=== PATIENT | female | born 1960 | race Caucasian/White ===

== ENCOUNTER 2017-04-20 09:40 | Emergency (ER) | payer SELFPAY ==
--- NOTE | 2017-04-20 10:44 | EDM.PDOC ---
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 She smashed her rt middle finger. It i tender at the tip. 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: Musculoskeletal History: Reports: Fracture - Infectious Disease History Infectious Disease History: Reports: Chicken Pox, Measles, Mumps - Past Surgical History GI Surgical History: Reports: Appendectomy, Hernia Repair/Other Female Surgical History: Reports: Hysterectomy, Salpingo-Oophorectomy Social & Family History - Tobacco Use Smoking Status *Q: Current Every Day Smoker Years of Tobacco use: 40 Packs/Tins Daily: 0.5 - Caffeine Use Caffeine Use: Reports: Coffee - Recreational Drug Use Recreational Drug Use: No Review of Systems - Review of Systems Review Of Systems: See Below Constitutional: Reports: No Symptoms Eyes: Reports: No Symptoms Ears: Reports: No Symptoms Nose: Reports: No Symptoms Mouth/Throat: Reports: No Symptoms Respiratory: Reports: No Symptoms Cardiovascular: Reports: No Symptoms GI/Abdominal: Reports: No Symptoms Genitourinary: Reports: No Symptoms Musculoskeletal: Reports: Other (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 ) ED EXAM, GENERAL - Physical Exam Exam: See Below Free Text/Narrative:: Pt arrived with pain in her rt middle finger. There is some swelling. Exam Limited By: No Limitations General Appearance: Alert Extremities: Other (Pt has swelling at the tip of the rt middle finger. A xray was obtained which showed a possible fracture at the tip with no displacement. A over the finger splint was applied) Course - Vital Signs Last Recorded V/S: Last Vital Signs Temp 35.3 C 04/20/17 10:01 Pulse 88 04/20/17 10:01 Resp 18 04/20/17 10:01 BP 195/113 H 04/20/17 10:43 Pulse Ox 96 04/20/17 10:01 - Orders/Labs/Meds Orders: Active Orders 24 hr Category Date Time Status Fingers Third Digit Rt F7 [CR] Stat Exams 04/20/17 09:58 Taken Departure - Departure Time of Disposition: 10:41 Disposition: Home, Self-Care 01 Condition: Fair Clinical Impression: Fracture, finger, distal phalanx - Discharge Information Referrals: PCP,None [Primary Care Provider] - Forms: ED Department Discharge Care Plan Goals: use splint for the next 10 days to protect it, cool pack, elevate motrin 600mg qid for pain as needed. - My Orders Last 24 Hours: My Active Orders 04/20/17 09:58 Fingers Third Digit Rt F7 [CR] Stat - Assessment/Plan Last 24 Hours: My Active Orders 04/20/17 09:58 Fingers Third Digit Rt F7 [CR] Stat
--- NOTE | 2017-04-21 09:18 | CR ---
Fingers Third Digit Rt F7 HISTORY: smashed tip o the finger FINDINGS: No acute fracture or dislocation is identified. Bony architecture and joint spaces are preserved. S oft tissues are unremarkable. IMPRESSION: No fracture or other acute right third finger abnormality is identified.
== END 2017-04-20 10:55 | disposition home or self-care (01) ==
LOC: JP.ED 09:40
DX: S62.632A Displaced fracture of distal phalanx of right middle finger, initial encounter for closed fracture (principal); F17.210 Nicotine dependence, cigarettes, uncomplicated; W23.0XXA Caught, crushed, jammed, or pinched between moving objects, initial encounter
CPT/HCPCS: 73140-26-F7; 73140-F7; 99283; 99284

== ENCOUNTER 2018-12-04 11:41 | Emergency (ER) | payer OTHER ==
[2018-12-04] MEDS ORDERED: Aspirin 81 MG Tab.Chew PO ONE (11:52)
[2018-12-04] MEDS ORDERED: Sodium Chloride 0.9% 10 ML Syringe FLUSH PRN (11:52)
[2018-12-04] MEDS ORDERED: Ketorolac 30 MG/ML SDV IVPUSH ONE (11:53)
[2018-12-04] MEDS ORDERED: Nitroglycerin 0.4 MG Tab.SL SL ONE (11:53)
--- NOTE | 2018-12-04 11:57 | EDM.PDOC ---
ED HPI GENERAL MEDICAL PROBLEM - General Stated Complaint: CHEST PAIN, SOB, HEADACHE Time Seen by Provider: 12/04/18 11:45 Source of Information: Reports: Patient History Limitations: Reports: No Limitations - History of Present Illness INITIAL COMMENTS - FREE TEXT/NARRATIVE: Mia is a 58 year old female who presents to the ED today with c/o substernal chest pain since 2100 last night, throbbing in nature, unrelieved with Ibuprofen or rest, nothing really makes pain worse. Patient also endorses sob and headache that started shortly after the chest pain. Patient denies any cardiac hx but does have a family hx, she does smoke 1 ppd, no hx of GERD. Patient has no hx of DVT or PE not on blood thinners. Patient denies any URI symptoms, fever/chills. Patient denies any LE edema or weight gain. 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 ED EXAM, GENERAL - Physical Exam Exam: See Below Exam Limited By: No Limitations General Appearance: Alert, WD/WN, No Apparent Distress Eye Exam: Bilateral Eye: EOMI Nose: Normal Inspection Throat/Mouth: Normal Oropharynx Head: Atraumatic Neck: Normal Inspection, Non-Tender Respiratory/Chest: No Respiratory Distress, Lungs Clear Cardiovascular: Regular Rate, Rhythm, No Murmur GI/Abdominal: Normal Bowel Sounds, Soft, Non-Tender Extremities: Normal Inspection Neurological: Alert, Oriented, CN II-XII Intact Psychiatric: Normal Affect, Normal Mood Skin Exam: Warm, Dry, Intact, Normal Color, No Rash Lymphatic: No Adenopathy EKG INTERPRETATION EKG Date: 12/04/18 Time: 11:50 Rhythm: NSR [place]: Normal P-Wave: Present QRS: Normal ST-T: Normal QT: Normal VT/PQ Interval: Short VT interval, 104 Comparison: NA - No Prior EKG Course - Vital Signs Last Recorded V/S: Last Vital Signs Temp 35.8 C 12/04/18 11:55 Pulse 79 12/04/18 12:51 Resp 16 12/04/18 12:51 BP 179/99 H 12/04/18 12:55 Pulse Ox 91 L 12/04/18 12:51 Mia is a 58 year old female, otherwise healthy, although doesn't see a provider, presents today with substernal chest pain since last night. Please refer to HPI and focused exam. Patient arrives here with headache as well, hypertensive with systolic blood pressure > 200. Patient given a dose of NTG here with 324 mg of aspirin and 30 mg of IV Toradol. Nurse reports that patient 's headache and chest pain had really subsided prior to medication administration. Patient reports headache and chest pain are still resolved. Patient's blood pressure did improve after the NTG. Blood work today including a D Dimer and Troponin are relatively reassuring. Patient has a negative troponin, negative d dimer. CBC reassuring with a normal white count. CMP with a sodium of 139 and potassium of 3.5. CRP negative. CXR consistent with emphysema. Patient updated on findings and test results. Smoking cessation encouraged. Patient needs to establish a PCP with her family hx of heart disease, recommend follow up echocardiogram and stress test in the near future. I am going to start patient on Lisinopril/HCTZ and have her establish PCP for follow up in the next 1-2 weeks. Patient also encouraged to start taking an 81 mg daily baby aspirin. Reasons to return to the ED discussed with patient, she is agreeable to plan of care and discharged in stable condition. - Orders/Labs/Meds Orders: Active Orders 24 hr Category Date Time Status EKG Documentation Completion [RC] ASDIRECTED Care 12/04/18 11:47 Active Peripheral IV Care [RC] . DIRECTED Care 12/04/18 11:52 Active Sodium Chloride 0.9% [Normal Saline] 1,000 ml Med 12/04/18 12:00 Active IV ASDIRECTED Sodium Chloride 0.9% [Saline Flush] Med 12/04/18 11:52 Active 10 ml FLUSH ASDIRECTED PRN Peripheral IV Insertion Adult [OM.PC] Routine Oth 12/04/18 11:52 Ordered EKG 12 Lead [EK] Stat Ther 12/04/18 11:47 Ordered Medication Orders Sodium Chloride (Normal Saline) 1,000 mls @ 125 mls/hr IV ASDIRECTED GAVIN Last Admin: 12/04/18 12:52 Dose: 125 mls/hr Sodium Chloride (Saline Flush) 10 ml FLUSH ASDIRECTED PRN PRN Reason: Keep Vein Open Labs: Laboratory Tests 12/04/18 12/04/18 12/04/18 Range/Units 12:06 12:06 12:06 WBC 7.0 (4.5-11.0) K/uL RBC 5.35 (3.30-5.50) M/uL Hgb 16.2 H (12.0-15.0) g/dL Hct 48.3 H (36.0-48.0) % MCV 90 (80-98) fL MCH 30 (27-31) pg MCHC 34 (32-36) % Plt Count 232 (150-400) K/uL Neut % (Auto) 59 (36-66) % Lymph % (Auto) 31 (24-44) % [place] % (Auto) 9 H (2-6) % Eos % (Auto) 1 L (2-4) % Baso % (Auto) 0 (0-1) % D-Dimer, Quantitative 171 (0.0-400.0) ng/mL Sodium 139 L (140-148) mmol/L Potassium 3.5 L (3.6-5.2) mmol/L Chloride 101 (100-108) mmol/L Carbon Dioxide 30 (21-32) mmol/L Anion Gap 11.5 (5.0-14.0) mmol/L BUN 16 (7-18) mg/dL Creatinine 0.8 (0.6-1.0) mg/dL Est Cr Clr Drug Dosing 54.39 mL/min Estimated GFR (MDRD) > 60 (>60) Glucose 115 H (74-106) mg/dL Calcium 9.2 (8.5-10.1) mg/dL Total Bilirubin 0.5 (0.2-1.0) mg/dL AST 22 (15-37) U/L ALT 24 (12-78) U/L Alkaline Phosphatase 67 (46-116) U/L Troponin I (0.000-0.056) ng/mL C-Reactive Protein (0.0-0.3) mg/dL Total Protein 7.7 (6.4-8.2) g/dL Albumin 4.0 (3.4-5.0) g/dL Globulin 3.7 H (2.3-3.5) g/dL Albumin/Globulin Ratio 1.1 L (1.2-2.2) 12/04/18 Range/Units 12:06 WBC (4.5-11.0) K/uL RBC (3.30-5.50) M/uL Hgb (12.0-15.0) g/dL Hct (36.0-48.0) % MCV (80-98) fL MCH (27-31) pg MCHC (32-36) % Plt Count (150-400) K/uL Neut % (Auto) (36-66) % Lymph % (Auto) (24-44) % [place] % (Auto) (2-6) % Eos % (Auto) (2-4) % Baso % (Auto) (0-1) % D-Dimer, Quantitative (0.0-400.0) ng/mL Sodium (140-148) mmol/L Potassium (3.6-5.2) mmol/L Chloride (100-108) mmol/L Carbon Dioxide (21-32) mmol/L Anion Gap (5.0-14.0) mmol/L BUN (7-18) mg/dL Creatinine (0.6-1.0) mg/dL Est Cr Clr Drug Dosing mL/min Estimated GFR (MDRD) (>60) Glucose (74-106) mg/dL Calcium (8.5-10.1) mg/dL Total Bilirubin (0.2-1.0) mg/dL AST (15-37) U/L ALT (12-78) U/L Alkaline Phosphatase (46-116) U/L Troponin I < 0.017 (0.000-0.056) ng/mL C-Reactive Protein 0.03 (0.0-0.3) mg/dL Total Protein (6.4-8.2) g/dL Albumin (3.4-5.0) g/dL Globulin (2.3-3.5) g/dL Albumin/Globulin Ratio (1.2-2.2) Meds: Medications Generic Name Dose Route Start Last Admin Trade Name Freq PRN Reason Stop Dose Admin Sodium Chloride 1,000 mls @ 125 mls/hr 12/04/18 12:00 12/04/18 12:52 Normal Saline IV 125 mls/hr ASDIRECTED GAVIN Administration Sodium Chloride 10 ml 12/04/18 11:52 Saline Flush FLUSH ASDIRECTED PRN Keep Vein Open Discontinued Medications Generic Name Dose Route Start Last Admin Trade Name Freq PRN Reason Stop Dose Admin Aspirin 324 mg 12/04/18 11:52 12/04/18 12:51 Aspirin PO 12/04/18 11:53 324 mg ONETIME ONE Administration Ketorolac Tromethamine 30 mg 12/04/18 11:53 12/04/18 12:53 Toradol IVPUSH 12/04/18 11:54 30 mg ONETIME ONE Administration Nitroglycerin 0.4 mg 12/04/18 11:53 12/04/18 12:55 Nitrostat SL 12/04/18 11:54 0.4 mg ONETIME ONE Administration Departure - Departure Time of Disposition: 14:00 Disposition: Home, Self-Care 01 Condition: Good Clinical Impression: Atypical chest pain, Hypertension, uncontrolled Emphysema of lung Qualifiers: Emphysema type: unspecified Qualified Code(s): J43.9 - Emphysema, unspecified Instructions: How to Take Your Blood Pressure, Chest Wall Pain, [id number], Hypertension, [id number], Hydrochlorothiazide, HCTZ; Lisinopril tablets Referrals: PCP,None [Primary Care Provider] - Additional Instructions: Start taking the Zestoretic daily. Check your blood pressure once daily and record for clinic appointment. Start taking a baby aspirin daily. Consider stopping smoking. If you have any other concerns or new/worsening symptoms please return here. Discuss a cardiac echocardiogram as well as a stress test with the clinic provider you see. - My Orders Last 24 Hours: My Active Orders 12/04/18 11:47 EKG Documentation Completion [RC] ASDIRECTED EKG 12 Lead [EK] Stat 12/04/18 11:52 Peripheral IV Care [RC] . DIRECTED Sodium Chloride 0.9% [Saline Flush] 10 ml FLUSH ASDIRECTED PRN Peripheral IV Insertion Adult [OM.PC] Routine 12/04/18 12:00 Sodium Chloride 0.9% [Normal Saline] 1,000 ml IV ASDIRECTED - Assessment/Plan Last 24 Hours: My Active Orders 12/04/18 11:47 EKG Documentation Completion [RC] ASDIRECTED EKG 12 Lead [EK] Stat 12/04/18 11:52 Peripheral IV Care [RC] . DIRECTED Sodium Chloride 0.9% [Saline Flush] 10 ml FLUSH ASDIRECTED PRN Peripheral IV Insertion Adult [OM.PC] Routine 12/04/18 12:00 Sodium Chloride 0.9% [Normal Saline] 1,000 ml IV ASDIRECTED
[2018-12-04] MEDS ORDERED: Sodium Chloride 0.9% 1,000 ML IV SCH (12:00)
--- NOTE | 2018-12-04 13:18 | CRLCR ---
INDICATION: Chest pain TECHNIQUE: Chest radiograph 2 views COMPARISON: 10/02/2006 FINDINGS: Mediastinum: The mediastinum is normal in appearance. The heart silhouette is normal in size and morphology. Lung: Bilateral pulmonary hyperinflation and lucency noted, suggestive of severe, increased pulmonary emphysema. No sign of pleural effusion seen. No pneumothorax is identified. Bone and Soft tissue: Unremarkable for age. IMPRESSION: 1. Bilateral pulmonary hyperinflation and lucency noted, suggestive of severe, increased pulmonary emphysema. Dictated by Ady Naidu MD @ 12/04/2018 1:15:56 PM Dictated by: Ady Naidu MD @ 12/04/2018 13:16:02 (Electronically Signed)
== END 2018-12-04 13:53 | disposition home or self-care (01) ==
LOC: JP.ED 11:41
DX: J43.9 Emphysema, unspecified (principal); R07.89 Other chest pain; I10 Essential (primary) hypertension; Z90.49 Acquired absence of other specified parts of digestive tract; Z90.722 Acquired absence of ovaries, bilateral; Z90.710 Acquired absence of both cervix and uterus
CPT/HCPCS: 36415; 71046; 80053; 84484; 85025; 85379; 86140; 93005; 96361; 96374; 99285; A9270; J1885; J7030

== ENCOUNTER 2021-01-12 17:37 | Inpatient (IN) | payer OTHER ==
[2021-01-12] MEDS ORDERED: Sodium Chloride 0.9% 10 ML Syringe FLUSH PRN ×2 (18:15→18:20)
--- NOTE | 2021-01-12 18:25 | EDM.PDOC ---
ED HPI GENERAL MEDICAL PROBLEM - General Chief Complaint: Respiratory Problem Stated Complaint: FATIGUE, COUGH, SOB Time Seen by Provider: 01/12/21 18:15 Source of Information: Reports: Patient, Old Records History Limitations: Reports: No Limitations - History of Present Illness INITIAL COMMENTS - FREE TEXT/NARRATIVE: 60-year-old female presenting to the ED for evaluation of increasing shortness of breath, fever and chills, headache, nausea without vomiting, body aches, loss of appetite, and generalized weakness. The patient symptoms started on Friday. She has not received vaccinations for either Covid or the Pneumovax. She smokes 1 to 2 packs/day. She apparently underwent a CT of the chest 1 year ago and was found to have suspicious masses in her lungs but failed to follow-up on any of this. She denies being around anyone that has been ill. She was at the [facility] walk-in clinic to be seen but left there because when they checked her vitals they found her to be quite hypoxic and her grandkids brought her immediately to the ER. Lower Back Pain Score (Numeric/FACES): 3 - Related Data Allergies Allergy/AdvReac Type Severity Reaction Status Date / Time No Known Allergies Allergy Verified 01/12/21 18:16 Home Meds: Home Meds Albuterol Sulfate [Albuterol Sulfate Hfa] 1 puff INH Q6HR PRN 01/12/21 [History] Lisinopril/Hydrochlorothiazide [Lisinopril-Hctz 10-12.5 mg Tab] 1 tab PO DAILY 01/12/21 [History] Aspirin [Halfprin] 81 mg PO DAILY 01/13/21 [History] Cholecalciferol (Vitamin D3) [Vitamin D3] 2,000 unit PO DAILY 01/13/21 [History] Past Medical History Cardiovascular History: Reports: Hypertension [employer] DIRECTOR History: Reports: Musculoskeletal History: Reports: Fracture - Infectious Disease History Infectious Disease History: Reports: Chicken Pox, Measles, Mumps - Past Surgical History GI Surgical History: Reports: Appendectomy, Hernia Repair/Other Female Surgical History: Reports: Hysterectomy, Salpingo-Oophorectomy Social & Family History - Caffeine Use Caffeine Use: Reports: Coffee ED ROS GENERAL - Review of Systems Review Of Systems: See Below Constitutional: Reports: Fever, Chills, Malaise, Weakness (Generalized), Fatigue, Decreased Appetite HEENT: Reports: Rhinitis Respiratory: Reports: Shortness of Breath, Wheezing, Cough, Sputum Cardiovascular: Reports: Chest Pain (Chest pressure), Dyspnea on Exertion Endocrine: Reports: Fatigue GI/Abdominal: Reports: Decreased Appetite, Nausea. Denies: Vomiting : Reports: No Symptoms Musculoskeletal: Reports: Muscle Pain Skin: Reports: No Symptoms Neurological: Reports: Headache Psychiatric: Reports: No Symptoms Hematologic/Lymphatic: Reports: No Symptoms Immunologic: Reports: No Symptoms ED EXAM, GENERAL - Physical Exam Exam: See Below Exam Limited By: No Limitations General Appearance: Alert, Anxious, Mild Distress Eye Exam: Bilateral Eye: EOMI, PERRL Nose: Nasal Swelling. No: Nasal Drainage, Clear Rhinorrhea Throat/Mouth: Other (Very dry mucous membranes. Pharyngeal erythema. Red, beefy tongue.) Head: Atraumatic, Normocephalic Neck: Normal Inspection, Supple. No: Lymphadenopathy (R), Lymphadenopathy (L) Respiratory/Chest: Decreased Breath Sounds (Bibasilar diminished breath sounds), Rhonchi (Scattered rhonchi), Wheezing (Scant inspiratory wheezes. Prolonged expiratory phase.), Prolonged Expiration Cardiovascular: Normal Peripheral Pulses, Regular Rate, Rhythm, No Murmur Peripheral Pulses: 2+: Radial (L), Radial (R) GI/Abdominal: Normal Bowel Sounds, Soft, Non-Tender. No: Guarding, Rebound Extremities: Normal Inspection, No Pedal Edema Neurological: Alert, Oriented, Normal Cognition, No Motor/Sensory Deficits Psychiatric: Normal Affect, Normal Mood Skin Exam: Warm, Dry, Intact, Normal Color Course - Vital Signs Last Recorded V/S: Last Vital Signs Temp 36.1 C 01/13/21 15:25 Pulse 79 01/13/21 15:25 Resp 22 H 01/13/21 15:25 BP 99/71 01/13/21 15:25 Pulse Ox 93 L 01/13/21 15:30 - Orders/Labs/Meds Orders: Active Orders 24 hr Category Date Time Status RT Aerosol Therapy [RC] ASDIRECTED Care 01/13/21 10:01 Active RT Post Treatment Assessment [RC] Click to Edit Care 01/13/21 10:01 Active Albuterol [Ventolin HFA] Med 01/13/21 10:00 Active See Dose Instructions INH Q4H PRN Sodium Chloride 0.9% [Saline Flush] Med 01/12/21 18:15 Active 10 ml FLUSH ASDIRECTED PRN Saline Lock Insert [OM.PC] Routine Oth 01/12/21 18:15 Ordered Saline Lock Insert [OM.PC] Routine Oth 01/12/21 18:20 Ordered Medication Orders Acetaminophen (Acetaminophen 325 Mg Tab) 650 mg PO Q4H PRN PRN Reason: Pain (Mild 1-3)/fever Last Admin: 01/13/21 16:07 Dose: 650 mg Documented by: ESTELA Albuterol (Albuterol 8 Gm Inhaler) 0 gm INH Q4H PRN PRN Reason: Wheezing Last Admin: 01/13/21 10:12 Dose: 2 puff Documented by: SERENA Aspirin (Aspirin 81 Mg Tab.Ec) 81 mg PO DAILY [facility] Benzonatate (Benzonatate 100 Mg Cap) 100 mg PO TID PRN PRN Reason: Cough Cholecalciferol (Cholecalciferol (Vitamin D3) 25 Mcg Tab) 50 mcg PO DAILY [facility] Dexamethasone (Dexamethasone 4 Mg/Ml Sdv) 6 mg IVPUSH Q24H [facility] Enoxaparin Sodium (Enoxaparin 40 Mg/0.4 Ml Syringe) 40 mg SUBCUT Q24H [facility] Last Admin: 01/13/21 15:51 Dose: 40 mg Documented by: ESTELA Guaifenesin/Dextromethorphan (Guaifenesin/Dextromethorphan 100-10 Mg/5 Ml Soln 10 Ml Cup) 10 ml PO Q4H PRN PRN Reason: Cough Hydrochlorothiazide (Hydrochlorothiazide 12.5 Mg Cap) 12.5 mg PO DAILY [facility] Remdesivir 100 mg/ Sodium (Chloride) 100 mls @ 100 mls/hr IV Q24H [facility] Stop: 01/17/21 14:59 Ceftriaxone Sodium 1 gm/ (Sodium Chloride) 50 mls @ 100 mls/hr IV Q24H [facility] Last Admin: 01/13/21 17:24 Dose: 100 mls/hr Documented by: ESTELA Lactobacillus Rhamnosus (Lactobacillus Rhamnosus Gg (Probiotic) Cap) 1 cap PO BID [facility] Lisinopril (Lisinopril 10 Mg Tab) 10 mg PO DAILY [facility] Lorazepam (Lorazepam 2 Mg/Ml Sdv) 0.5 mg IVPUSH Q4H PRN PRN Reason: Nausea/Vomiting Magnesium Hydroxide (Magnesium Hydroxide 400 Mg/5 Ml Susp 30 Ml Cup) 30 ml PO Q12H PRN PRN Reason: Constipation Melatonin (Melatonin 3 Mg Tab) 9 mg PO BEDTIME PRN PRN Reason: Sleep Nicotine (Nicotine 14 Mg/24 Hr Patch) 14 mg TRDERM DAILY [facility] Ondansetron HCl (Ondansetron 4 Mg/2 Ml Sdv) 4 mg IV Q6H PRN PRN Reason: Nausea/Vomiting Ondansetron HCl (Ondansetron 4 Mg Tab.Dis) 4 mg PO Q6H PRN PRN Reason: Nausea able to take PO Oxycodone HCl (Oxycodone 5 Mg Tab) 5 mg PO Q4H PRN PRN Reason: Pain (moderate 4-6) Pantoprazole Sodium (Pantoprazole 40 Mg Tab.Cr) 40 mg PO ACBREAKFAST [facility] Senna/Docusate Sodium (Docusate Sodium/Sennosides 50-8.6 Mg Tab) 1 tab PO BID PRN PRN Reason: Constipation Sodium Chloride (Sodium Chloride 0.9% 10 Ml Syringe) 10 ml FLUSH ASDIRECTED PRN PRN Reason: Keep Vein Open Last Admin: 01/13/21 09:17 Dose: 10 ml Documented by: EBER Labs: Laboratory Tests 01/12/21 01/12/21 01/12/21 Range/Units 18:24 18:32 18:32 WBC 9.3 (4.5-11.0) K/uL RBC 5.87 H (3.30-5.50) M/uL Hgb 17.3 H (12.0-15.0) g/dL Hct 49.3 H (36.0-48.0) % MCV 84 (80-98) fL MCH 30 (27-31) pg MCHC 35 (32-36) % Plt Count 248 (150-400) K/uL Neut % (Auto) 84.5 H (36-66) % Lymph % (Auto) 7.3 L (24-44) % [place] % (Auto) 7.2 H (2-6) % Eos % (Auto) 0.0 L (2-4) % Baso % (Auto) 1.0 (0-1) % D-Dimer, Quantitative 2590.35 H (0.0-500.0) ng/mL Sodium (140-148) mmol/L Potassium (3.6-5.2) mmol/L Chloride (100-108) mmol/L Carbon Dioxide (21-32) mmol/L Anion Gap (5.0-14.0) mmol/L BUN (7-18) mg/dL Creatinine (0.6-1.0) mg/dL Est Cr Clr Drug Dosing mL/min Estimated GFR (MDRD) (>60) Glucose (74-106) mg/dL Lactic Acid (0.4-2.0) mmol/L Calcium (8.5-10.1) mg/dL Total Bilirubin (0.2-1.0) mg/dL AST (15-37) U/L ALT (12-78) U/L Alkaline Phosphatase (46-116) U/L Lactate Dehydrogenase (82-234) U/L C-Reactive Protein (0.0-0.3) mg/dL Total Protein (6.4-8.2) g/dL Albumin (3.4-5.0) g/dL Globulin (2.3-3.5) g/dL Albumin/Globulin Ratio (1.2-2.2) Urine Color (YELLOW) Urine Appearance (CLEAR) Urine pH (5.0-8.0) Ur Specific [place] (1.008-1.030) Urine Protein (NEGATIVE) mg/dL Urine Glucose (UA) (NEGATIVE) mg/dL Urine Ketones (NEGATIVE) mg/dL Urine Occult Blood (NEGATIVE) Urine Nitrite (NEGATIVE) Urine Bilirubin (NEGATIVE) Urine Urobilinogen (0.2-1.0) EU/dL Ur Leukocyte Esterase (NEGATIVE) Urine RBC (0-5) Urine WBC (0-5) Ur Epithelial Cells Amorphous Sediment Urine Bacteria Urine Mucus Influenza Type A RNA Negative (NEGATIVE) RSV RNA (INAAT) Negative (NEGATIVE) Influenza Type B RNA Negative (NEGATIVE) SARS-CoV-2 RNA (IGNACIO) Positive H (NEGATIVE) 01/12/21 01/12/21 01/12/21 Range/Units 18:32 18:32 18:32 WBC (4.5-11.0) K/uL RBC (3.30-5.50) M/uL Hgb (12.0-15.0) g/dL Hct (36.0-48.0) % MCV (80-98) fL MCH (27-31) pg MCHC (32-36) % Plt Count (150-400) K/uL Neut % (Auto) (36-66) % Lymph % (Auto) (24-44) % [place] % (Auto) (2-6) % Eos % (Auto) (2-4) % Baso % (Auto) (0-1) % D-Dimer, Quantitative (0.0-500.0) ng/mL Sodium 131 L (140-148) mmol/L Potassium 3.8 (3.6-5.2) mmol/L Chloride 90 L (100-108) mmol/L Carbon Dioxide 26 (21-32) mmol/L Anion Gap 18.8 H (5.0-14.0) mmol/L BUN 94 H* D (7-18) mg/dL Creatinine 1.9 H D (0.6-1.0) mg/dL Est Cr Clr Drug Dosing 20.93 mL/min Estimated GFR (MDRD) 27 L (>60) Glucose 126 H (74-106) mg/dL Lactic Acid 1.7 (0.4-2.0) mmol/L Calcium 9.7 (8.5-10.1) mg/dL Total Bilirubin 0.6 (0.2-1.0) mg/dL AST 69 H D (15-37) U/L ALT 42 (12-78) U/L Alkaline Phosphatase 83 (46-116) U/L Lactate Dehydrogenase 345 H (82-234) U/L C-Reactive Protein 3.77 H (0.0-0.3) mg/dL Total Protein 8.4 H (6.4-8.2) g/dL Albumin 3.5 (3.4-5.0) g/dL Globulin 4.9 H (2.3-3.5) g/dL Albumin/Globulin Ratio 0.7 L (1.2-2.2) Urine Color (YELLOW) Urine Appearance (CLEAR) Urine pH (5.0-8.0) Ur Specific [place] (1.008-1.030) Urine Protein (NEGATIVE) mg/dL Urine Glucose (UA) (NEGATIVE) mg/dL Urine Ketones (NEGATIVE) mg/dL Urine Occult Blood (NEGATIVE) Urine Nitrite (NEGATIVE) Urine Bilirubin (NEGATIVE) Urine Urobilinogen (0.2-1.0) EU/dL Ur Leukocyte Esterase (NEGATIVE) Urine RBC (0-5) Urine WBC (0-5) Ur Epithelial Cells Amorphous Sediment Urine Bacteria Urine Mucus Influenza Type A RNA (NEGATIVE) RSV RNA (INAAT) (NEGATIVE) Influenza Type B RNA (NEGATIVE) SARS-CoV-2 RNA (IGNACIO) (NEGATIVE) 01/13/21 01/13/21 Range/Units 11:18 13:13 WBC (4.5-11.0) K/uL RBC (3.30-5.50) M/uL Hgb (12.0-15.0) g/dL Hct (36.0-48.0) % MCV (80-98) fL MCH (27-31) pg MCHC (32-36) % Plt Count (150-400) K/uL Neut % (Auto) (36-66) % Lymph % (Auto) (24-44) % [place] % (Auto) (2-6) % Eos % (Auto) (2-4) % Baso % (Auto) (0-1) % D-Dimer, Quantitative (0.0-500.0) ng/mL Sodium 135 L (140-148) mmol/L Potassium 3.7 (3.6-5.2) mmol/L Chloride 96 L (100-108) mmol/L Carbon Dioxide 26 (21-32) mmol/L Anion Gap 16.7 H (5.0-14.0) mmol/L BUN 91 H* (7-18) mg/dL Creatinine 1.4 H (0.6-1.0) mg/dL Est Cr Clr Drug Dosing 28.40 mL/min Estimated GFR (MDRD) 38 L (>60) Glucose 118 H (74-106) mg/dL Lactic Acid (0.4-2.0) mmol/L Calcium 9.3 (8.5-10.1) mg/dL Total Bilirubin (0.2-1.0) mg/dL AST (15-37) U/L ALT (12-78) U/L Alkaline Phosphatase (46-116) U/L Lactate Dehydrogenase (82-234) U/L C-Reactive Protein (0.0-0.3) mg/dL Total Protein (6.4-8.2) g/dL Albumin (3.4-5.0) g/dL Globulin (2.3-3.5) g/dL Albumin/Globulin Ratio (1.2-2.2) Urine Color Yellow (YELLOW) Urine Appearance Clear (CLEAR) Urine pH 5.5 (5.0-8.0) Ur Specific [place] 1.020 (1.008-1.030) Urine Protein Trace H (NEGATIVE) mg/dL Urine Glucose (UA) Negative (NEGATIVE) mg/dL Urine Ketones Negative (NEGATIVE) mg/dL Urine Occult Blood Moderate H (NEGATIVE) Urine Nitrite Negative (NEGATIVE) Urine Bilirubin Negative (NEGATIVE) Urine Urobilinogen 0.2 (0.2-1.0) EU/dL Ur Leukocyte Esterase Small H (NEGATIVE) Urine RBC 10-20 H (0-5) Urine WBC 10-20 H (0-5) Ur Epithelial Cells Not seen Amorphous Sediment Moderate Urine Bacteria Moderate Urine Mucus Not seen Influenza Type A RNA (NEGATIVE) RSV RNA (INAAT) (NEGATIVE) Influenza Type B RNA (NEGATIVE) SARS-CoV-2 RNA (IGNACIO) (NEGATIVE) Meds: Medications Generic Name Dose Route Start Last Admin Trade Name Freq PRN Reason Stop Dose Admin Acetaminophen 650 mg 01/13/21 14:44 01/13/21 16:07 Acetaminophen 325 Mg Tab PO 650 mg Q4H PRN Administration Pain (Mild 1-3)/fever Albuterol 0 gm 01/13/21 10:00 01/13/21 10:12 Albuterol 8 Gm Inhaler INH 2 puff Q4H PRN Administration Wheezing Aspirin 81 mg 01/14/21 09:00 Aspirin 81 Mg Tab.Ec PO DAILY [facility] Benzonatate 100 mg 01/13/21 14:44 Benzonatate 100 Mg Cap PO TID PRN Cough Cholecalciferol 50 mcg 01/14/21 09:00 Cholecalciferol (Vitamin D3) 25 Mcg Tab PO DAILY [facility] Dexamethasone 6 mg 01/13/21 20:00 Dexamethasone 4 Mg/Ml Sdv IVPUSH Q24H [facility] Enoxaparin Sodium 40 mg 01/13/21 15:00 01/13/21 15:51 Enoxaparin 40 Mg/0.4 Ml Syringe SUBCUT 40 mg Q24H [facility] Administration Guaifenesin/Dextromethorphan 10 ml 01/13/21 14:44 Guaifenesin/Dextromethorphan 100-10 Mg/5 Ml Soln 10 Ml Cup PO Q4H PRN Cough Hydrochlorothiazide 12.5 mg 01/14/21 09:00 Hydrochlorothiazide 12.5 Mg Cap PO DAILY [facility] Remdesivir 100 mg/ Sodium 100 mls @ 100 mls/hr 01/14/21 14:00 Chloride IV 01/17/21 14:59 Q24H [facility] Ceftriaxone Sodium 1 gm/ 50 mls @ 100 mls/hr 01/13/21 16:00 01/13/21 17:24 Sodium Chloride IV 100 mls/hr Q24H [facility] Administration Lactobacillus Rhamnosus 1 cap 01/13/21 21:00 Lactobacillus Rhamnosus Gg (Probiotic) Cap PO BID [facility] Lisinopril 10 mg 01/14/21 09:00 Lisinopril 10 Mg Tab PO DAILY [facility] Lorazepam 0.5 mg 01/13/21 14:44 Lorazepam 2 Mg/Ml Sdv IVPUSH Q4H PRN Nausea/Vomiting Magnesium Hydroxide 30 ml 01/13/21 14:44 Magnesium Hydroxide 400 Mg/5 Ml Susp 30 Ml Cup PO Q12H PRN Constipation Melatonin 9 mg 01/13/21 14:44 Melatonin 3 Mg Tab PO BEDTIME PRN Sleep Nicotine 14 mg 01/13/21 17:45 Nicotine 14 Mg/24 Hr Patch TRDERM DAILY [facility] Ondansetron HCl 4 mg 01/13/21 14:44 Ondansetron 4 Mg/2 Ml Sdv IV Q6H PRN Nausea/Vomiting Ondansetron HCl 4 mg 01/13/21 14:44 Ondansetron 4 Mg Tab.Dis PO Q6H PRN Nausea able to take PO Oxycodone HCl 5 mg 01/13/21 14:44 Oxycodone 5 Mg Tab PO Q4H PRN Pain (moderate 4-6) Pantoprazole Sodium 40 mg 01/14/21 07:30 Pantoprazole 40 Mg Tab.Cr PO ACBREAKFAST [facility] Senna/Docusate Sodium 1 tab 01/13/21 14:44 Docusate Sodium/Sennosides 50-8.6 Mg Tab PO BID PRN Constipation Sodium Chloride 10 ml 01/12/21 18:15 01/13/21 09:17 Sodium Chloride 0.9% 10 Ml Syringe FLUSH 10 ml ASDIRECTED PRN Administration Keep Vein Open Discontinued Medications Generic Name Dose Route Start Last Admin Trade Name Freq PRN Reason Stop Dose Admin Dexamethasone 6 mg 01/12/21 20:49 01/12/21 21:11 Dexamethasone 4 Mg/Ml Sdv IVPUSH 01/12/21 20:50 6 mg ONETIME ONE Administration Hydrochlorothiazide 12.5 mg 01/13/21 10:00 01/13/21 10:40 Hydrochlorothiazide 12.5 Mg Cap PO Not Given DAILY [facility] Sodium Chloride 1,000 mls @ 150 mls/hr 01/12/21 18:30 01/12/21 20:23 Normal Saline IV 150 mls/hr ASDIRECTED [facility] Administration Remdesivir 200 mg/ Sodium 250 mls @ 250 mls/hr 01/13/21 15:30 01/13/21 15:52 Chloride IV 01/13/21 16:29 250 mls/hr ONETIME ONE Administration Lisinopril 10 mg 01/13/21 10:00 01/13/21 10:11 Lisinopril 10 Mg Tab PO 10 mg DAILY [facility] Administration Sodium Chloride 10 ml 01/12/21 18:20 01/13/21 09:18 Sodium Chloride 0.9% 10 Ml Syringe FLUSH 10 ml ASDIRECTED PRN Administration Keep Vein Open - Radiology Interpretation Free Text/Narrative:: I reviewed the images of the CT of the chest without contrast as well as the report. The report is as follows: FINDINGS: Stable 1.5 cm lobulated pulmonary nodule in the left upper lobe. New clustered micronodular opacities in the medial and dependent left lower lobe, suggesting bronchiolitis. Focal consolidation with air bronchograms and mild bronchiectasis involving the medial segment of the right middle lobe. Mild bilateral perihilar reticular opacities. A few borderline enlarged mediastinal lymph nodes are stable. Lymphadenopathy is suggested in the pulmonary nanda, although assessment is limited in the absence of intravenous contrast. No cardiomegaly or pericardial effusion. Coronary artery calcification present. Normal caliber thoracic aorta and main pulmonary artery. Unremarkable thoracic osseous structures. No significant abnormality demonstrated in the visualized upper abdomen. Ventral hernia repair changes are noted. IMPRESSION: 1. Clustered micronodular opacities in the medial and dependent left lower lobe, suggesting bronchiolitis. Focal consolidation with air bronchograms and mild bronchiectasis involving the medial segment of the right middle lobe. Mild bilateral perihilar reticular opacities. Findings are most likely of infectious/inflammatory etiology. Correlate clinically. 2. Stable 1.5 cm left upper lobe pulmonary nodule. Continued surveillance is recommended. Please note that all CT scans at this facility use dose modulation, iterative reconstruction, and/or weight-based dosing when appropriate to reduce radiation dose to as low as reasonably achievable. Dictated by Malgorzata Zavala MD @ 01/12/2021 8:33:14 PM - Re-Assessments/Exams Free Text/Narrative Re-Assessment/Exam: 01/12/21 20:50 the patient's labs showing that she is Covid positive. Her CBC has a leukocyte count of 9.3, hemoglobin of 17.3 hematocrit of 49.3 and a platelet count of 248,000. Her comprehensive metabolic panel shows a sodium 131, potassium 3.8, chloride of 90, bicarbonate of 26, BUN of 94 with a creatinine of 1.9 and a glucose of 126. Her GFR is calculated at 27. Her calcium is 9.7 with an AST of 69, ALT of 42, alkaline phosphatase of 83 and the remainder of her comprehensive is unremarkable. Her Covid test are positive for D-dimer at 2590, lactate of 1.7, LDH of 345 and a C-reactive protein at 3.77. 01/12/21 21:[address] is consistent with Covid pneumonia. She does have matting of the mediastinal lymph nodes which remain stable and will need to be surveillance over time. She has 1.5 cm lesion in the right upper lung as well that remains stable. As the patient's GFR is only 27 so the use of remdesivir is contraindicated, however, I did order dexamethasone 6 mg IV. We will need to keep the patient in the ER and board her overnight with the hopes that we may have a bed available tomorrow. There is no availability outside to transfer the patient at this time. We did initiate hydration with normal saline at 150 cc an hour because the patient has a BUN of 94 with a creatinine 1.9 likely secondary to prerenal azotemia. Departure - Departure Time of Disposition: 15:00 Disposition: Admitted As Inpatient 65 Clinical Impression: Pneumonia due to COVID-19 virus, Severe dehydration, Chronic kidney disease, stage IV (severe), Hypertension, uncontrolled Emphysema of lung Qualifiers: Emphysema type: panlobular Qualified Code(s): J43.1 - Panlobular emphysema - Discharge Information Sepsis Event Note (ED) - Focused Exam Vital Signs: Vital Signs Temp Pulse Resp BP BP Pulse Ox 01/13/21 13:32 36.6 C 78 22 H 104/68 91 L 01/13/21 10:11 105/69 01/13/21 09:24 36.6 C 85 20 105/69 91 L - Problem List & Annotations (1) Hypertension, uncontrolled SNOMED Code(s): 43944988, 20978579 Code(s): I10 - ESSENTIAL (PRIMARY) HYPERTENSION Status: Chronic Priority: Medium Current Visit: Yes (2) Emphysema of lung SNOMED Code(s): 49183779 Code(s): J43.9 - EMPHYSEMA, UNSPECIFIED Status: Chronic Priority: High Current Visit: Yes Qualifiers: Emphysema type: panlobular Qualified Code(s): J43.1 - Panlobular emphysema (3) Chronic kidney disease, stage IV (severe) SNOMED Code(s): 680081889 Code(s): N18.4 - CHRONIC KIDNEY DISEASE, STAGE 4 (SEVERE) Status: Acute Priority: High Current Visit: Yes (4) Pneumonia due to COVID-19 virus SNOMED Code(s): 655466030045455214 Code(s): U07.1 - COVID-19; J12.82 - PNEUMONIA DUE TO CORONAVIRUS DISEASE 2019 Status: Acute Priority: High Current Visit: Yes (5) Severe dehydration SNOMED Code(s): 602778337 Code(s): E86.0 - DEHYDRATION Status: Acute Priority: High Current Visit: Yes - Problem List Review Problem List Initiated/Reviewed/Updated: Yes - My Orders Last 24 Hours: My Active Orders 01/12/21 18:15 Sodium Chloride 0.9% [Saline Flush] 10 ml FLUSH ASDIRECTED PRN Saline Lock Insert [OM.PC] Routine 01/12/21 18:20 Saline Lock Insert [OM.PC] Routine - Assessment/Plan Last 24 Hours: My Active Orders 01/12/21 18:15 Sodium Chloride 0.9% [Saline Flush] 10 ml FLUSH ASDIRECTED PRN Saline Lock Insert [OM.PC] Routine 01/12/21 18:20 Saline Lock Insert [OM.PC] Routine
[2021-01-12] MEDS ORDERED: Sodium Chloride 0.9% 1,000 ML IV SCH (18:30)
[2021-01-12 19:21] LABS: CORONAVIRUS COVID-19 NAA POSITIVE (NEGATIVE)
--- NOTE | 2021-01-12 20:35 | CRLCT ---
For Patients: As a result of the Century Cures Act, medical imaging exams and procedure reports are released immediately into your electronic medical record. You may view this report before your referring provider. If you have questions, please contact your health care provider. INDICATION: Dyspnea, hypoxia, history of lung mass well follow-up COMPARISON: CT chest without contrast 04/26/2020 TECHNIQUE: Nonenhanced axial CT imaging through the chest. Sagittal and coronal reconstructions are provided. FINDINGS: Stable 1.5 cm lobulated pulmonary nodule in the left upper lobe. New clustered micronodular opacities in the medial and dependent left lower lobe, suggesting bronchiolitis. Focal consolidation with air bronchograms and mild bronchiectasis involving the medial segment of the right middle lobe. Mild bilateral perihilar reticular opacities. A few borderline enlarged mediastinal lymph nodes are stable. Lymphadenopathy is suggested in the pulmonary nanda, although assessment is limited in the absence of intravenous contrast. No cardiomegaly or pericardial effusion. Coronary artery calcification present. Normal caliber thoracic aorta and main pulmonary artery. Unremarkable thoracic osseous structures. No significant abnormality demonstrated in the visualized upper abdomen. Ventral hernia repair changes are noted. IMPRESSION: 1. Clustered micronodular opacities in the medial and dependent left lower lobe, suggesting bronchiolitis. Focal consolidation with air bronchograms and mild bronchiectasis involving the medial segment of the right middle lobe. Mild bilateral perihilar reticular opacities. Findings are most likely of infectious/inflammatory etiology. Correlate clinically. 2. Stable 1.5 cm left upper lobe pulmonary nodule. Continued surveillance is recommended. Please note that all CT scans at this facility use dose modulation, iterative reconstruction, and/or weight-based dosing when appropriate to reduce radiation dose to as low as reasonably achievable. Dictated by Malgorzata Zavala MD @ 01/12/2021 8:33:14 PM (Electronically Signed)
[2021-01-12] MEDS ORDERED: Dexamethasone 4 MG/ML SDV IVPUSH ONE (20:49)
[2021-01-13] MEDS ORDERED: Albuterol 8 GM Inhaler INH PRN (10:00)
[2021-01-13] MEDS ORDERED: Hydrochlorothiazide 12.5 MG Cap PO SCH (10:00)
[2021-01-13] MEDS ORDERED: Lisinopril 10 MG Tab PO SCH (10:00)
--- NOTE | 2021-01-13 13:41 | PCM.HP.2 ---
H&P History of Present Illness - General Date of Service: 01/13/21 Admit Problem/Dx: Admission Diagnosis/Problem Admission Diagnosis/Problem Pneumonia Source of Information: Patient, Provider History Limitations: Reports: No Limitations - History of Present Illness Initial Comments - Free Text/Narative: CC: I didn't feel good HPI: Mia presents to the emergency room with progressive weakness, dizziness, shortness of breath and cough. She also had an episode of falling over backwards in the setting of lightheadedness. Symptoms started on Friday, 4 days before presentation. They have progressed since that time. She reports constant headache, mild sore throat, occasionally productive cough, weakness, anorexia and fatigue. She has not had any chest pain, vomiting or diarrhea. No obvious sick contacts. No fevers. Symptoms have been steadily getting worse. She has not had her Covid vaccination. Appetite and intake have been poor the past couple of days. Work-up in the emergency room revealed evidence for Covid pneumonia with acute respiratory failure and hypoxia. She has hyponatremia, acute kidney injury and prerenal azotemia. She did receive some IV fluids and steroids. She is requiring 7 L of supplemental oxygen. She will be admitted for management of Covid pneumonia and respiratory failure. Lower Back Pain Score (Numeric/FACES): 3 - Related Data Allergies/Adverse Reactions: Allergies Allergy/AdvReac Type Severity Reaction Status Date / Time No Known Allergies Allergy Verified 01/12/21 18:16 Home Medications: Home Meds Albuterol Sulfate [Albuterol Sulfate Hfa] 1 puff INH Q6HR PRN 01/12/21 [History] Lisinopril/Hydrochlorothiazide [Lisinopril-Hctz 10-12.5 mg Tab] 1 tab PO DAILY 01/12/21 [History] Aspirin [Halfprin] 81 mg PO DAILY 01/13/21 [History] Cholecalciferol (Vitamin D3) [Vitamin D3] 2,000 unit PO DAILY 01/13/21 [History] Past Medical History Cardiovascular History: Reports: Hypertension Gastrointestinal History: Reports: None [employer] History: Reports: Musculoskeletal History: Reports: Fracture - Infectious Disease History Infectious Disease History: Reports: Chicken Pox, Measles, Mumps - Past Surgical History Head Surgeries/Procedures: Reports: None Cardiovascular Surgical History: Reports: None GI Surgical History: Reports: Appendectomy, Hernia Repair/Other Female Surgical History: Reports: Hysterectomy, Salpingo-Oophorectomy Musculoskeletal Surgical History: Reports: Other (See Below) Other Musculoskeletal Surgeries/Procedures:: wrist surgery right Social & Family History - Family History Oncologic: Reports: Leukemia (Dad) - Tobacco Use Tobacco Use Status *Q: Current Every Day Tobacco User Years of Tobacco use: 50 Packs/Tins Daily: 0.5 - Caffeine Use Caffeine Use: Reports: Coffee, Soda - Alcohol Use Alcohol Use History: No Alcohol Use in Last Twelve Months: No - Recreational Drug Use Recreational Drug Use: No H&P Review of Systems - Review of Systems: Review Of Systems: See Below Free Text/Narrative: A complete 12 point review of systems was obtained. Pertinent positives and negatives are noted in the history of present illness. All other systems were reviewed and were negative except as noted. Exam - Exam Exam: See Below - Vital Signs Vital Signs: Last Vital Signs Temp 36.6 C 01/13/21 13:32 Pulse 78 01/13/21 13:32 Resp 22 H 01/13/21 13:32 BP 104/68 01/13/21 13:32 Pulse Ox 91 L 01/13/21 13:32 Weight: 42.638 kg - Exam Quality Assessment: Supplemental Oxygen General: Alert, Oriented, Cooperative. No: Mild Distress HEENT: Conjunctiva Clear. No: Mucosa Moist & Blanca (dry), Scleral Icterus Neck: Supple, Trachea Midline Lungs: Normal Respiratory Effort, Crackles (Mild diffuse in mid and lower lungs). No: Wheezing Cardiovascular: Regular Rate, Irregular Rhythm GI/Abdominal Exam: Normal Bowel Sounds, Soft, Non-Tender, No Distention Extremities: No Pedal Edema. No: Increased Warmth Skin: Warm, Dry. No: Rash Neuro Extensive - Mental Status: Alert, Oriented x3, Nl Response to Commands Neuro Extensive - Motor, Sensory, Reflexes: No: Dysarthria, Abnormal Motor, Tremor Psychiatric: Alert, Normal Affect - Patient Data Lab Results Last 24 hrs: Laboratory Results - last 24 hr 01/12/21 01/12/21 01/12/21 Range/Units 18:24 18:32 18:32 WBC 9.3 (4.5-11.0) K/uL RBC 5.87 H (3.30-5.50) M/uL Hgb 17.3 H (12.0-15.0) g/dL Hct 49.3 H (36.0-48.0) % MCV 84 (80-98) fL MCH 30 (27-31) pg MCHC 35 (32-36) % Plt Count 248 (150-400) K/uL Neut % (Auto) 84.5 H (36-66) % Lymph % (Auto) 7.3 L (24-44) % [place] % (Auto) 7.2 H (2-6) % Eos % (Auto) 0.0 L (2-4) % Baso % (Auto) 1.0 (0-1) % D-Dimer, Quantitative 2590.35 H (0.0-500.0) ng/mL Sodium (140-148) mmol/L Potassium (3.6-5.2) mmol/L Chloride (100-108) mmol/L Carbon Dioxide (21-32) mmol/L Anion Gap (5.0-14.0) mmol/L BUN (7-18) mg/dL Creatinine (0.6-1.0) mg/dL Est Cr Clr Drug Dosing mL/min Estimated GFR (MDRD) (>60) Glucose (74-106) mg/dL Lactic Acid (0.4-2.0) mmol/L Calcium (8.5-10.1) mg/dL Total Bilirubin (0.2-1.0) mg/dL AST (15-37) U/L ALT (12-78) U/L Alkaline Phosphatase (46-116) U/L Lactate Dehydrogenase (82-234) U/L C-Reactive Protein (0.0-0.3) mg/dL Total Protein (6.4-8.2) g/dL Albumin (3.4-5.0) g/dL Globulin (2.3-3.5) g/dL Albumin/Globulin Ratio (1.2-2.2) Urine Color (YELLOW) Urine Appearance (CLEAR) Urine pH (5.0-8.0) Ur Specific [place] (1.008-1.030) Urine Protein (NEGATIVE) mg/dL Urine Glucose (UA) (NEGATIVE) mg/dL Urine Ketones (NEGATIVE) mg/dL Urine Occult Blood (NEGATIVE) Urine Nitrite (NEGATIVE) Urine Bilirubin (NEGATIVE) Urine Urobilinogen (0.2-1.0) EU/dL Ur Leukocyte Esterase (NEGATIVE) Urine RBC (0-5) Urine WBC (0-5) Ur Epithelial Cells Amorphous Sediment Urine Bacteria Urine Mucus Influenza Type A RNA Negative (NEGATIVE) RSV RNA (INAAT) Negative (NEGATIVE) Influenza Type B RNA Negative (NEGATIVE) SARS-CoV-2 RNA (IGNACIO) Positive H (NEGATIVE) 01/12/21 01/12/21 01/12/21 Range/Units 18:32 18:32 18:32 WBC (4.5-11.0) K/uL RBC (3.30-5.50) M/uL Hgb (12.0-15.0) g/dL Hct (36.0-48.0) % MCV (80-98) fL MCH (27-31) pg MCHC (32-36) % Plt Count (150-400) K/uL Neut % (Auto) (36-66) % Lymph % (Auto) (24-44) % [place] % (Auto) (2-6) % Eos % (Auto) (2-4) % Baso % (Auto) (0-1) % D-Dimer, Quantitative (0.0-500.0) ng/mL Sodium 131 L (140-148) mmol/L Potassium 3.8 (3.6-5.2) mmol/L Chloride 90 L (100-108) mmol/L Carbon Dioxide 26 (21-32) mmol/L Anion Gap 18.8 H (5.0-14.0) mmol/L BUN 94 H* D (7-18) mg/dL Creatinine 1.9 H D (0.6-1.0) mg/dL Est Cr Clr Drug Dosing 20.93 mL/min Estimated GFR (MDRD) 27 L (>60) Glucose 126 H (74-106) mg/dL Lactic Acid 1.7 (0.4-2.0) mmol/L Calcium 9.7 (8.5-10.1) mg/dL Total Bilirubin 0.6 (0.2-1.0) mg/dL AST 69 H D (15-37) U/L ALT 42 (12-78) U/L Alkaline Phosphatase 83 (46-116) U/L Lactate Dehydrogenase 345 H (82-234) U/L C-Reactive Protein 3.77 H (0.0-0.3) mg/dL Total Protein 8.4 H (6.4-8.2) g/dL Albumin 3.5 (3.4-5.0) g/dL Globulin 4.9 H (2.3-3.5) g/dL Albumin/Globulin Ratio 0.7 L (1.2-2.2) Urine Color (YELLOW) Urine Appearance (CLEAR) Urine pH (5.0-8.0) Ur Specific [place] (1.008-1.030) Urine Protein (NEGATIVE) mg/dL Urine Glucose (UA) (NEGATIVE) mg/dL Urine Ketones (NEGATIVE) mg/dL Urine Occult Blood (NEGATIVE) Urine Nitrite (NEGATIVE) Urine Bilirubin (NEGATIVE) Urine Urobilinogen (0.2-1.0) EU/dL Ur Leukocyte Esterase (NEGATIVE) Urine RBC (0-5) Urine WBC (0-5) Ur Epithelial Cells Amorphous Sediment Urine Bacteria Urine Mucus Influenza Type A RNA (NEGATIVE) RSV RNA (INAAT) (NEGATIVE) Influenza Type B RNA (NEGATIVE) SARS-CoV-2 RNA (IGNACIO) (NEGATIVE) 01/13/21 01/13/21 Range/Units 11:18 13:13 WBC (4.5-11.0) K/uL RBC (3.30-5.50) M/uL Hgb (12.0-15.0) g/dL Hct (36.0-48.0) % MCV (80-98) fL MCH (27-31) pg MCHC (32-36) % Plt Count (150-400) K/uL Neut % (Auto) (36-66) % Lymph % (Auto) (24-44) % [place] % (Auto) (2-6) % Eos % (Auto) (2-4) % Baso % (Auto) (0-1) % D-Dimer, Quantitative (0.0-500.0) ng/mL Sodium 135 L (140-148) mmol/L Potassium 3.7 (3.6-5.2) mmol/L Chloride 96 L (100-108) mmol/L Carbon Dioxide 26 (21-32) mmol/L Anion Gap 16.7 H (5.0-14.0) mmol/L BUN 91 H* (7-18) mg/dL Creatinine 1.4 H (0.6-1.0) mg/dL Est Cr Clr Drug Dosing 28.40 mL/min Estimated GFR (MDRD) 38 L (>60) Glucose 118 H (74-106) mg/dL Lactic Acid (0.4-2.0) mmol/L Calcium 9.3 (8.5-10.1) mg/dL Total Bilirubin (0.2-1.0) mg/dL AST (15-37) U/L ALT (12-78) U/L Alkaline Phosphatase (46-116) U/L Lactate Dehydrogenase (82-234) U/L C-Reactive Protein (0.0-0.3) mg/dL Total Protein (6.4-8.2) g/dL Albumin (3.4-5.0) g/dL Globulin (2.3-3.5) g/dL Albumin/Globulin Ratio (1.2-2.2) Urine Color Yellow (YELLOW) Urine Appearance Clear (CLEAR) Urine pH 5.5 (5.0-8.0) Ur Specific [place] 1.020 (1.008-1.030) Urine Protein Trace H (NEGATIVE) mg/dL Urine Glucose (UA) Negative (NEGATIVE) mg/dL Urine Ketones Negative (NEGATIVE) mg/dL Urine Occult Blood Moderate H (NEGATIVE) Urine Nitrite Negative (NEGATIVE) Urine Bilirubin Negative (NEGATIVE) Urine Urobilinogen 0.2 (0.2-1.0) EU/dL Ur Leukocyte Esterase Small H (NEGATIVE) Urine RBC 10-20 H (0-5) Urine WBC 10-20 H (0-5) Ur Epithelial Cells Not seen Amorphous Sediment Moderate Urine Bacteria Moderate Urine Mucus Not seen Influenza Type A RNA (NEGATIVE) RSV RNA (INAAT) (NEGATIVE) Influenza Type B RNA (NEGATIVE) SARS-CoV-2 RNA (IGNACIO) (NEGATIVE) Result Diagrams: 01/12/21 18:32 01/13/21 11:18 Imaging Impressions Last 24 hrs: CT scan of the chest-images were personally reviewed-there are some patchy lower lung infiltrates noted bilaterally. She does have an upper lobe pulmonary nodule which is stable and the radiologist did recommend additional follow-up. No effusions. Heart size is normal. There is some emphysema. Sepsis Event Note - Focused Exam Vital Signs: Vital Signs Temp Pulse Resp BP BP BP Pulse Ox 01/13/21 13:32 36.6 C 78 22 H 104/68 91 L 01/13/21 10:11 105/69 01/13/21 09:24 36.6 C 85 20 105/69 91 L 01/13/21 04:37 35.9 C L 85 20 119/73 93 L *Q Meaningful Use (ADM) - VTE Risk Assess *Q Each Risk Factor Represents 1 Point: Serious lung disease including pneumonia, Abnormal Pulmonary Function (COPD) Total Score 1 Point Risk Factors: 2 Each Risk Factor Represents 2 Points: Age 60 - 74 Years Total Score 2 Point Risk Factors: 2 Each Risk Factor Represents 3 Points: None Total Score 3 Point Risk Factors: 0 Each Risk Factor Represents 5 Points: None Total Score 5 Point Risk Factors: 0 Venous Thromboembolism Risk Factor Score *Q: 4 - Problem List (1) Pneumonia due to COVID-19 virus SNOMED Code(s): 370963187976204360 ICD Code: U07.1 - COVID-19; J12.82 - PNEUMONIA DUE TO CORONAVIRUS DISEASE 2018 Status: Acute Priority: High Current Visit: Yes (2) Acute respiratory failure with hypoxia SNOMED Code(s): 89014389, 423565918 ICD Code: J96.01 - ACUTE RESPIRATORY FAILURE WITH HYPOXIA Status: Acute Current Visit: Yes (3) Emphysema of lung SNOMED Code(s): 91988059 ICD Code: J43.9 - EMPHYSEMA, UNSPECIFIED Status: Chronic Priority: High Current Visit: Yes Qualifiers: Emphysema type: panlobular Qualified Code(s): J43.1 - Panlobular emphysema (4) Acute kidney injury SNOMED Code(s): 09621316, 51190449 ICD Code: N17.9 - ACUTE KIDNEY FAILURE, UNSPECIFIED Status: Acute Current Visit: Yes (5) Tobacco dependence SNOMED Code(s): 52170430 ICD Code: F17.200 - NICOTINE DEPENDENCE, UNSPECIFIED, UNCOMPLICATED Status: Chronic Current Visit: Yes (6) Essential hypertension SNOMED Code(s): 71457178 ICD Code: I10 - ESSENTIAL (PRIMARY) HYPERTENSION Status: Acute Current Visit: Yes Problem List Initiated/Reviewed/Updated: Yes Orders Last 24hrs: Active Orders 24 hr Category Date Time Status Patient Status Manage Transfer [TRANSFER] Routine ADT 01/13/21 13:35 Ordered RT Aerosol Therapy [RC] ASDIRECTED Care 01/13/21 10:01 Active RT Post Treatment Assessment [RC] Click to Edit Care 01/13/21 10:01 Active CULTURE URINE [RM] Routine Lab 01/13/21 13:38 Received Albuterol [Ventolin HFA] Med 01/13/21 10:00 Active See Dose Instructions INH Q4H PRN Sodium Chloride 0.9% [Normal Saline] 1,000 ml Med 01/12/21 18:30 Active IV ASDIRECTED Sodium Chloride 0.9% [Saline Flush] Med 01/12/21 18:15 Active 10 ml FLUSH ASDIRECTED PRN lisinopriL [Prinivil] Med 01/13/21 10:00 Active 10 mg PO DAILY Isolation [COMM] Stat Oth 01/12/21 18:16 Ordered Saline Lock Insert [OM.PC] Routine Oth 01/12/21 18:15 Ordered Saline Lock Insert [OM.PC] Routine Oth 01/12/21 18:20 Ordered Resuscitation Status Routine Resus Stat 01/13/21 13:37 Ordered Medication Orders Albuterol (Albuterol 8 Gm Inhaler) 0 gm INH Q4H PRN PRN Reason: Wheezing Last Admin: 01/13/21 10:12 Dose: 2 puff Documented by: SERENA Sodium Chloride (Normal Saline) 1,000 mls @ 150 mls/hr IV ASDIRECTED GAVIN Last Admin: 01/12/21 20:23 Dose: 150 mls/hr Documented by: AYDEN Lisinopril (Lisinopril 10 Mg Tab) 10 mg PO DAILY [facility] Last Admin: 01/13/21 10:11 Dose: 10 mg Documented by: SERENA Sodium Chloride (Sodium Chloride 0.9% 10 Ml Syringe) 10 ml FLUSH ASDIRECTED PRN PRN Reason: Keep Vein Open Last Admin: 01/13/21 09:17 Dose: 10 ml Documented by: EBER Assessment/Plan Comment:: ASSESSMENT AND PLAN - COVID-19 pneumonia-complicated by acute respiratory failure with hypoxia. Symptom onset 01/08. Moderate elevation of D-dimer and CRP. Moderate hypoxia at 7 L. High risk for progression given her COPD and active tobacco use. She did receive steroids yesterday but no remdesivir because of her decreased GFR. 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 Still smoking. -Management as above Acute kidney injury-secondary to dehydration and intravascular volume depletion. Creatinine has improved since yesterday. -Encourage oral intake Hyponatremia-secondary to intravascular volume depletion and hypovolemia. Should slowly improve as she gets better hydrated. Paroxysmal atrial fibrillation-heart rate normal. -Continue aspirin, consider beta-sara if rate control needed. Tobacco dependence-encourage cessation -Nicotine patch Maintenance issues - -DVT prophylaxis-enoxaparin -GI prophylaxis-GI -Nutrition-regular -Vigil catheter-not indicated CODE STATUS -full code Admission justification -this patient will be admitted for inpatient services and is medically appropriate meeting medical necessity for inpatient admission as outlined in my documentation. I reasonably expect the patient will require inpatient services that span a period time over 2 midnights. I reasonably expect this patient to be discharged or transferred within 96 hours [facility]. Disposition -I anticipate discharge home after the hospital stay Primary care physician - Dr Nicolette Maria M.D. - Mortality Measure Prognosis:: Good
[2021-01-13] MEDS ORDERED: oxyCODONE 5 MG Tab PO PRN (14:44)
[2021-01-13] MEDS ORDERED: LORazepam 2 MG/ML SDV IVPUSH PRN (14:44)
[2021-01-13] MEDS ORDERED: Benzonatate 100 MG Cap PO PRN (14:44)
[2021-01-13] MEDS ORDERED: Ondansetron 4 MG/2 ML SDV IV PRN (14:44)
[2021-01-13] MEDS ORDERED: Magnesium Hydroxide 400 MG/5 ML Susp 30 ML Cup PO PRN (14:44)
[2021-01-13] MEDS ORDERED: Ondansetron 4 MG Tab.DIS PO PRN (14:44)
[2021-01-13] MEDS ORDERED: REMDESIVIR 200 MG in Sodium Chloride 0.9% 250 ML IV ONE (15:30)
[2021-01-13] MEDS: Enoxaparin 40 MG/0.4 ML Syringe SUBCUT SCH (15:51)
[2021-01-13] MEDS: Acetaminophen 325 MG Tab PO PRN (16:07)
[2021-01-13] MEDS: cefTRIAXone 1 GM in Sodium Chloride 0.9% 50 ML IV SCH (17:24)
[2021-01-13] MEDS: Nicotine 14 MG/24 Hr Patch TRDERM SCH (18:15)
[2021-01-13] MEDS: Lactobacillus Rhamnosus GG (Probiotic) Cap PO SCH ×2 (19:46→21:17)
[2021-01-13] MEDS: Dexamethasone 4 MG/ML SDV IVPUSH SCH ×2 (19:46→21:17)
[2021-01-13] MEDS: guaiFENesin/Dextromethorphan 100-10 MG/5 ML Soln 10 ML Cup PO PRN (21:17)
[2021-01-13] MEDS: Melatonin 3 MG Tab PO PRN (23:07)
[2021-01-14] MEDS: Lactobacillus Rhamnosus GG (Probiotic) Cap PO SCH ×3 (08:30→20:50)
[2021-01-14] MEDS: Pantoprazole 40 MG Tab.CR PO SCH (08:30)
[2021-01-14] MEDS: Cholecalciferol (Vitamin D3) 25 MCG Tab PO SCH (08:31)
[2021-01-14] MEDS: Aspirin 81 MG Tab.EC PO SCH (08:31)
[2021-01-14] MEDS: Nicotine 14 MG/24 Hr Patch TRDERM SCH (08:31)
[2021-01-14] MEDS: Hydrochlorothiazide 12.5 MG Cap PO SCH (08:33)
[2021-01-14] MEDS: Lisinopril 10 MG Tab PO SCH (08:33)
[2021-01-14] MEDS ORDERED: Non-Formulary Medication 1 Each (Cholecalciferol (Vitamin D3) [Vitamin D3] 2,000 UNIT Cap) PO SCH (09:00)
[2021-01-14] MEDS ORDERED: traZODone 50 MG Tab PO PRN (12:05)
--- NOTE | 2021-01-14 12:06 | PCM.PN ---
- General Info Date of Service: 01/14/21 Subjective Update: No acute events overnight. Respiratory status stable. Currently requiring 7 to 8 L of oxygen. CRP has improved since admission and D-dimer is better as well. Uri ne culture growing a gram-negative jose francisco with identification pending. Feels weak and tired but a little better than yesterday. Significant desaturation with any activity and takes several minutes to recover even with an increase in her supplemental oxygen. Functional Status: Reports: Tolerating Diet - Review of Systems General: Reports: Weakness Pulmonary: Reports: Shortness of Breath - Patient Data Vitals - Most Recent: Last Vital Signs Temp 36.8 C 01/14/21 10:07 Pulse 81 01/14/21 10:07 Resp 18 01/14/21 10:07 BP 115/75 01/14/21 10:07 Pulse Ox 91 L 01/14/21 10:07 Weight - Most Recent: 45.813 kg I&O - Last 24 Hours: Intake & Output 01/13/21 01/14/21 01/14/21 23:59 06:59 14:59 Intake Total Output Total 100 Balance -100 Lab Results Last 24 Hours: Laboratory Results - last 24 hr 01/13/21 01/14/21 01/14/21 Range/Units 13:13 04:15 04:15 WBC 13.0 H (4.5-11.0) K/uL RBC 4.97 (3.30-5.50) M/uL Hgb 14.7 D (12.0-15.0) g/dL Hct 43.0 (36.0-48.0) % MCV 87 (80-98) fL MCH 30 (27-31) pg MCHC 34 (32-36) % Plt Count 278 (150-400) K/uL D-Dimer, Quantitative 1851.41 H (0.0-500.0) ng/mL Sodium (140-148) mmol/L Potassium (3.6-5.2) mmol/L Chloride (100-108) mmol/L Carbon Dioxide (21-32) mmol/L Anion Gap (5.0-14.0) mmol/L BUN (7-18) mg/dL Creatinine (0.6-1.0) mg/dL Est Cr Clr Drug Dosing mL/min Estimated GFR (MDRD) (>60) Glucose (74-106) mg/dL Calcium (8.5-10.1) mg/dL C-Reactive Protein (0.0-0.3) mg/dL Urine Color Yellow (YELLOW) Urine Appearance Clear (CLEAR) Urine pH 5.5 (5.0-8.0) Ur Specific [place] 1.020 (1.008-1.030) Urine Protein Trace H (NEGATIVE) mg/dL Urine Glucose (UA) Negative (NEGATIVE) mg/dL Urine Ketones Negative (NEGATIVE) mg/dL Urine Occult Blood Moderate H (NEGATIVE) Urine Nitrite Negative (NEGATIVE) Urine Bilirubin Negative (NEGATIVE) Urine Urobilinogen 0.2 (0.2-1.0) EU/dL Ur Leukocyte Esterase Small H (NEGATIVE) Urine RBC 10-20 H (0-5) Urine WBC 10-20 H (0-5) Ur Epithelial Cells Not seen Amorphous Sediment Moderate Urine Bacteria Moderate Urine Mucus Not seen 01/14/21 Range/Units 04:15 WBC (4.5-11.0) K/uL RBC (3.30-5.50) M/uL Hgb (12.0-15.0) g/dL Hct (36.0-48.0) % MCV (80-98) fL MCH (27-31) pg MCHC (32-36) % Plt Count (150-400) K/uL D-Dimer, Quantitative (0.0-500.0) ng/mL Sodium 136 L (140-148) mmol/L Potassium 3.7 (3.6-5.2) mmol/L Chloride 98 L (100-108) mmol/L Carbon Dioxide 26 (21-32) mmol/L Anion Gap 15.7 H (5.0-14.0) mmol/L BUN 78 H* (7-18) mg/dL Creatinine 1.0 (0.6-1.0) mg/dL Est Cr Clr Drug Dosing 42.43 mL/min Estimated GFR (MDRD) 56 L (>60) Glucose 119 H (74-106) mg/dL Calcium 9.3 (8.5-10.1) mg/dL C-Reactive Protein 1.92 H (0.0-0.3) mg/dL Urine Color (YELLOW) Urine Appearance (CLEAR) Urine pH (5.0-8.0) Ur Specific [place] (1.008-1.030) Urine Protein (NEGATIVE) mg/dL Urine Glucose (UA) (NEGATIVE) mg/dL Urine Ketones (NEGATIVE) mg/dL Urine Occult Blood (NEGATIVE) Urine Nitrite (NEGATIVE) Urine Bilirubin (NEGATIVE) Urine Urobilinogen (0.2-1.0) EU/dL Ur Leukocyte Esterase (NEGATIVE) Urine RBC (0-5) Urine WBC (0-5) Ur Epithelial Cells Amorphous Sediment Urine Bacteria Urine Mucus Steve Results Last 24 Hours: Microbiology 01/13/21 13:38 Urine Culture - Preliminary Urine, Clean Catch Med Orders - Current: Current Medications Acetaminophen (Acetaminophen 325 Mg Tab) 650 mg PO Q4H PRN PRN Reason: Pain (Mild 1-3)/fever Last Admin: 01/13/21 16:07 Dose: 650 mg Documented by: Albuterol (Albuterol 8 Gm Inhaler) 0 gm INH Q4H PRN PRN Reason: Wheezing Last Admin: 01/13/21 10:12 Dose: 2 puff Documented by: Aspirin (Aspirin 81 Mg Tab.Ec) 81 mg PO DAILY [facility] Last Admin: 01/14/21 08:31 Dose: 81 mg Documented by: Benzonatate (Benzonatate 100 Mg Cap) 100 mg PO TID PRN PRN Reason: Cough Cholecalciferol (Cholecalciferol (Vitamin D3) 25 Mcg Tab) 50 mcg PO DAILY [facility] Last Admin: 01/14/21 08:31 Dose: 50 mcg Documented by: Dexamethasone (Dexamethasone 4 Mg/Ml Sdv) 6 mg IVPUSH Q24H [facility] Last Admin: 01/13/21 21:17 Dose: Not Given Documented by: Enoxaparin Sodium (Enoxaparin 40 Mg/0.4 Ml Syringe) 40 mg SUBCUT Q24H [facility] Last Admin: 01/13/21 15:51 Dose: 40 mg Documented by: Guaifenesin/Dextromethorphan (Guaifenesin/Dextromethorphan 100-10 Mg/5 Ml Soln 10 Ml Cup) 10 ml PO Q4H PRN PRN Reason: Cough Last Admin: 01/13/21 21:17 Dose: 10 ml Documented by: Hydrochlorothiazide (Hydrochlorothiazide 12.5 Mg Cap) 12.5 mg PO DAILY [facility] Last Admin: 01/14/21 08:33 Dose: 12.5 mg Documented by: Remdesivir 100 mg/ Sodium (Chloride) 100 mls @ 100 mls/hr IV Q24H [facility] Stop: 01/17/21 14:59 Ceftriaxone Sodium 1 gm/ (Sodium Chloride) 50 mls @ 100 mls/hr IV Q24H [facility] Last Admin: 01/13/21 17:24 Dose: 100 mls/hr Documented by: Lactobacillus Rhamnosus (Lactobacillus Rhamnosus Gg (Probiotic) Cap) 1 cap PO BID [facility] Last Admin: 01/14/21 08:30 Dose: 1 cap Documented by: Lisinopril (Lisinopril 10 Mg Tab) 10 mg PO DAILY [facility] Last Admin: 01/14/21 08:33 Dose: 10 mg Documented by: Lorazepam (Lorazepam 2 Mg/Ml Sdv) 0.5 mg IVPUSH Q4H PRN PRN Reason: Nausea/Vomiting Magnesium Hydroxide (Magnesium Hydroxide 400 Mg/5 Ml Susp 30 Ml Cup) 30 ml PO Q12H PRN PRN Reason: Constipation Melatonin (Melatonin 3 Mg Tab) 9 mg PO BEDTIME PRN PRN Reason: Sleep Last Admin: 01/13/21 23:07 Dose: 9 mg Documented by: Nicotine (Nicotine 14 Mg/24 Hr Patch) 14 mg TRDERM DAILY [facility] Last Admin: 01/14/21 08:31 Dose: 14 mg Documented by: Ondansetron HCl (Ondansetron 4 Mg/2 Ml Sdv) 4 mg IV Q6H PRN PRN Reason: Nausea/Vomiting Ondansetron HCl (Ondansetron 4 Mg Tab.Dis) 4 mg PO Q6H PRN PRN Reason: Nausea able to take PO Oxycodone HCl (Oxycodone 5 Mg Tab) 5 mg PO Q4H PRN PRN Reason: Pain (moderate 4-6) Pantoprazole Sodium (Pantoprazole 40 Mg Tab.Cr) 40 mg PO ACBREAKFAST [facility] Last Admin: 01/14/21 08:30 Dose: 40 mg Documented by: Senna/Docusate Sodium (Docusate Sodium/Sennosides 50-8.6 Mg Tab) 1 tab PO BID PRN PRN Reason: Constipation Sodium Chloride (Sodium Chloride 0.9% 10 Ml Syringe) 10 ml FLUSH ASDIRECTED PRN PRN Reason: Keep Vein Open Last Admin: 01/13/21 09:17 Dose: 10 ml Documented by: Discontinued Medications Dexamethasone (Dexamethasone 4 Mg/Ml Sdv) 6 mg IVPUSH ONETIME ONE Stop: 01/12/21 20:50 Last Admin: 01/12/21 21:11 Dose: 6 mg Documented by: Hydrochlorothiazide (Hydrochlorothiazide 12.5 Mg Cap) 12.5 mg PO DAILY [facility] Last Admin: 01/13/21 10:40 Dose: Not Given Documented by: Sodium Chloride (Normal Saline) 1,000 mls @ 150 mls/hr IV ASDIRECTED GAVIN Last Admin: 01/12/21 20:23 Dose: 150 mls/hr Documented by: Remdesivir 200 mg/ Sodium (Chloride) 250 mls @ 250 mls/hr IV ONETIME ONE Stop: 01/13/21 16:29 Last Admin: 01/13/21 15:52 Dose: 250 mls/hr Documented by: Lisinopril (Lisinopril 10 Mg Tab) 10 mg PO DAILY [facility] Last Admin: 01/13/21 10:11 Dose: 10 mg Documented by: Sodium Chloride (Sodium Chloride 0.9% 10 Ml Syringe) 10 ml FLUSH ASDIRECTED PRN PRN Reason: Keep Vein Open Last Admin: 01/13/21 09:18 Dose: 10 ml Documented by: - Exam Quality Assessment: Supplemental Oxygen General: Alert, Oriented, Cooperative, Mild Distress Lungs: No: Normal Respiratory Effort (tachypnea ), Wheezing Cardiovascular: Tachycardia GI/Abdominal Exam: Soft, No Distention Extremities: No Pedal Edema. No: Increased Warmth Skin: Warm, Dry Psy/Mental Status: Alert, Normal Affect - Patient Data Lab Results Last 24 hrs: Laboratory Results - last 24 hr 01/13/21 01/14/21 01/14/21 Range/Units 13:13 04:15 04:15 WBC 13.0 H (4.5-11.0) K/uL RBC 4.97 (3.30-5.50) M/uL Hgb 14.7 D (12.0-15.0) g/dL Hct 43.0 (36.0-48.0) % MCV 87 (80-98) fL MCH 30 (27-31) pg MCHC 34 (32-36) % Plt Count 278 (150-400) K/uL D-Dimer, Quantitative 1851.41 H (0.0-500.0) ng/mL Sodium (140-148) mmol/L Potassium (3.6-5.2) mmol/L Chloride (100-108) mmol/L Carbon Dioxide (21-32) mmol/L Anion Gap (5.0-14.0) mmol/L BUN (7-18) mg/dL Creatinine (0.6-1.0) mg/dL Est Cr Clr Drug Dosing mL/min Estimated GFR (MDRD) (>60) Glucose (74-106) mg/dL Calcium (8.5-10.1) mg/dL C-Reactive Protein (0.0-0.3) mg/dL Urine Color Yellow (YELLOW) Urine Appearance Clear (CLEAR) Urine pH 5.5 (5.0-8.0) Ur Specific [place] 1.020 (1.008-1.030) Urine Protein Trace H (NEGATIVE) mg/dL Urine Glucose (UA) Negative (NEGATIVE) mg/dL Urine Ketones Negative (NEGATIVE) mg/dL Urine Occult Blood Moderate H (NEGATIVE) Urine Nitrite Negative (NEGATIVE) Urine Bilirubin Negative (NEGATIVE) Urine Urobilinogen 0.2 (0.2-1.0) EU/dL Ur Leukocyte Esterase Small H (NEGATIVE) Urine RBC 10-20 H (0-5) Urine WBC 10-20 H (0-5) Ur Epithelial Cells Not seen Amorphous Sediment Moderate Urine Bacteria Moderate Urine Mucus Not seen 01/14/21 Range/Units 04:15 WBC (4.5-11.0) K/uL RBC (3.30-5.50) M/uL Hgb (12.0-15.0) g/dL Hct (36.0-48.0) % MCV (80-98) fL MCH (27-31) pg MCHC (32-36) % Plt Count (150-400) K/uL D-Dimer, Quantitative (0.0-500.0) ng/mL Sodium 136 L (140-148) mmol/L Potassium 3.7 (3.6-5.2) mmol/L Chloride 98 L (100-108) mmol/L Carbon Dioxide 26 (21-32) mmol/L Anion Gap 15.7 H (5.0-14.0) mmol/L BUN 78 H* (7-18) mg/dL Creatinine 1.0 (0.6-1.0) mg/dL Est Cr Clr Drug Dosing 42.43 mL/min Estimated GFR (MDRD) 56 L (>60) Glucose 119 H (74-106) mg/dL Calcium 9.3 (8.5-10.1) mg/dL C-Reactive Protein 1.92 H (0.0-0.3) mg/dL Urine Color (YELLOW) Urine Appearance (CLEAR) Urine pH (5.0-8.0) Ur Specific [place] (1.008-1.030) Urine Protein (NEGATIVE) mg/dL Urine Glucose (UA) (NEGATIVE) mg/dL Urine Ketones (NEGATIVE) mg/dL Urine Occult Blood (NEGATIVE) Urine Nitrite (NEGATIVE) Urine Bilirubin (NEGATIVE) Urine Urobilinogen (0.2-1.0) EU/dL Ur Leukocyte Esterase (NEGATIVE) Urine RBC (0-5) Urine WBC (0-5) Ur Epithelial Cells Amorphous Sediment Urine Bacteria Urine Mucus Result Diagrams: 01/14/21 04:15 01/14/21 04:15 Steve Results Last 24 hrs: Microbiology 01/13/21 13:38 Urine Culture - Preliminary Urine, Clean Catch Sepsis Event Note - Evaluation Sepsis Screening Result: No Definite Risk - Focused Exam Vital Signs: Vital Signs Temp Pulse Resp BP BP Pulse Ox Pulse Ox 01/14/21 10:07 36.8 C 81 18 115/75 91 L 01/14/21 08:33 107/72 01/14/21 07:26 96 01/14/21 07:18 94 L 01/14/21 07:00 36.3 C 85 18 107/72 91 L 01/14/21 03:24 36.4 C 84 14 111/72 97 01/14/21 01:00 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 96 01/14/21 01:16 CDT 94 L - Problem List & Annotations (1) Pneumonia due to COVID-19 virus SNOMED Code(s): 012585019581590055 Code(s): U07.1 - COVID-19; J12.82 - PNEUMONIA DUE TO CORONAVIRUS DISEASE 2019 Status: Acute Priority: High Current Visit: Yes (2) Acute respiratory failure with hypoxia SNOMED Code(s): 21025367, 313476850 Code(s): J96.01 - ACUTE RESPIRATORY FAILURE WITH HYPOXIA Status: Acute Current Visit: Yes (3) Emphysema of lung SNOMED Code(s): 07405761 Code(s): J43.9 - EMPHYSEMA, UNSPECIFIED Status: Chronic Priority: High Current Visit: Yes Qualifiers: Emphysema type: panlobular Qualified Code(s): J43.1 - Panlobular emphysema (4) Acute kidney injury SNOMED Code(s): 25260434, 48916425 Code(s): N17.9 - ACUTE KIDNEY FAILURE, UNSPECIFIED Status: Acute Current Visit: Yes (5) Tobacco dependence SNOMED Code(s): 71207652 Code(s): F17.200 - NICOTINE DEPENDENCE, UNSPECIFIED, UNCOMPLICATED Status: Chronic Current Visit: Yes (6) Essential hypertension SNOMED Code(s): 88954997 Code(s): I10 - ESSENTIAL (PRIMARY) HYPERTENSION Status: Acute Current Visit: Yes - Problem List Review Problem List Initiated/Reviewed/Updated: Yes - My Orders Last 24 Hours: My Active Orders 01/13/21 13:37 Resuscitation Status Routine 01/13/21 13:38 CULTURE URINE [RM] Routine 01/13/21 14:44 Acetaminophen [TylenoL] 650 mg PO Q4H PRN Benzonatate [Tessalon Perles] 100 mg PO TID PRN Dextromethorphan/guaiFENesin [Robitussin DM] 10 ml PO Q4H PRN Docusate Sodium/Sennosides [Senna Plus] 1 tab PO BID PRN LORazepam [Ativan] 0.5 mg IVPUSH Q4H PRN Magnesium Hydroxide [Milk of Magnesia] 30 ml PO Q12H PRN Melatonin 9 mg PO BEDTIME PRN Ondansetron [Zofran ODT] 4 mg PO Q6H PRN Ondansetron [Zofran] 4 mg IV Q6H PRN oxyCODONE 5 mg PO Q4H PRN 01/13/21 14:44 Patient Status [ADT] Routine Intake and Output [RC] QSHIFT Notify Provider Vital Signs [RC] ASDIRECTED Nurse Communication: Isolation [RC] ASDIRECTED Oxygen Therapy [RC] PRN Up With Assistance [RC] ASDIRECTED Vital Signs [RC] Q4H Isolation [COMM] Routine 01/13/21 15:00 Enoxaparin [Lovenox] 40 mg SUBCUT Q24H 01/13/21 15:06 Overnight Pulse Oximetry [RC] Click to Edit Pulse Oximetry Continuous Monitoring [OM.PC] Routine 01/13/21 16:00 cefTRIAXone [Rocephin] 1 gm Sodium Chloride 0.9% [Normal Saline AdvBag] 50 ml IV Q24H 01/13/21 Dinner Regular Diet [DIET] 01/13/21 17:45 Nicotine [Habitrol] 14 mg TRDERM DAILY 01/13/21 20:00 dexAMETHasone [Decadron] 6 mg IVPUSH Q24H 01/13/21 21:00 Lactobacillus Rhamnosus GG [Culturelle] 1 cap PO BID 01/14/21 07:30 Pantoprazole [ProTONIX] 40 mg PO ACBREAKFAST 01/14/21 09:00 Aspirin [Halfprin] 81 mg PO DAILY Cholecalciferol (Vitamin D3) [Vitamin D3] 50 mcg PO DAILY hydroCHLOROthiazide 12.5 mg PO DAILY lisinopriL [Prinivil] 10 mg PO DAILY 01/14/21 12:05 traZODone 50 mg PO BEDTIME PRN 01/14/21 14:00 Remdesivir 100 mg Sodium Chloride 0.9% [Normal Saline] 100 ml IV Q24H 01/15/21 05:00 COMPREHENSIVE METABOLIC PN,CMP [CHEM] Timed - Plan Plan:: ASSESSMENT AND PLAN - COVID-19 pneumonia-complicated by acute respiratory failure with hypoxia. Symptom onset 01/08. Moderate elevation of D-dimer and CRP with improvement since admission. Stable on 7 to 8 L of supplemental oxygen but quite symptomatic with activity and desaturates with activity. Tolerating treatment so far. -Dexamethasone every 24 hours (day 3) -Continue remdesivir, plan for 5 days of treatment (day 2) -Enoxaparin every 24 hours -Symptomatic management of cough -Inhaler as needed -Isolation precautions COPD with emphysema-this has been stable. Still smoking. -Management as above Acute kidney injury-secondary to dehydration and intravascular volume depletion. Creatinine has continued to improve. BUN still elevated. -Encourage oral intake Hyponatremia-secondary to intravascular volume depletion and hypovolemia. Slowly improving. Paroxysmal atrial fibrillation-heart rate normal. -Continue aspirin, consider beta-sara if rate control needed. Tobacco dependence-encourage cessation -Nicotine patch Maintenance issues - -DVT prophylaxis-enoxaparin -GI prophylaxis-GI -Nutrition-regular Disposition -I anticipate discharge home after the hospital stay Primary care physician - Dr Nicolette Maria M.D.
[2021-01-14] MEDS: Acetaminophen 325 MG Tab PO PRN ×2 (12:48→19:32)
[2021-01-14] MEDS: REMDESIVIR 100 MG in Sodium Chloride 0.9% 100 ML IV SCH (14:16)
[2021-01-14] MEDS: Enoxaparin 40 MG/0.4 ML Syringe SUBCUT SCH (14:43)
[2021-01-14] MEDS: cefTRIAXone 1 GM in Sodium Chloride 0.9% 50 ML IV SCH (15:47)
[2021-01-14] MEDS: Melatonin 3 MG Tab PO PRN (19:32)
[2021-01-14] MEDS: guaiFENesin/Dextromethorphan 100-10 MG/5 ML Soln 10 ML Cup PO PRN (19:33)
[2021-01-14] MEDS: Dexamethasone 4 MG/ML SDV IVPUSH SCH ×2 (19:36→20:50)
[2021-01-15] MEDS: Acetaminophen 325 MG Tab PO PRN ×3 (05:08→22:57)
[2021-01-15] MEDS: Pantoprazole 40 MG Tab.CR PO SCH (08:42)
[2021-01-15] MEDS: Lactobacillus Rhamnosus GG (Probiotic) Cap PO SCH ×3 (08:43→20:14)
[2021-01-15] MEDS: Nicotine 14 MG/24 Hr Patch TRDERM SCH (08:43)
[2021-01-15] MEDS: Aspirin 81 MG Tab.EC PO SCH (08:43)
[2021-01-15] MEDS: Cholecalciferol (Vitamin D3) 25 MCG Tab PO SCH (08:45)
[2021-01-15] MEDS: Lisinopril 10 MG Tab PO SCH (08:46)
[2021-01-15] MEDS: Hydrochlorothiazide 12.5 MG Cap PO SCH (08:46)
[2021-01-15] MEDS: REMDESIVIR 100 MG in Sodium Chloride 0.9% 100 ML IV SCH (14:13)
[2021-01-15] MEDS: Enoxaparin 40 MG/0.4 ML Syringe SUBCUT SCH (14:18)
--- NOTE | 2021-01-15 14:25 | PCM.PN ---
- General Info Date of Service: 01/15/21 Subjective Update: Ms. Julian has required increased levels of supplemental oxygen since yesterday, currently up to 12 L/min via nasal cannula. She reports that she otherwise feel s relatively well, with minimal cough. Functional Status: Reports: Urinating - Review of Systems General: Reports: Weakness, Fatigue. Denies: Fever, Chills Pulmonary: Reports: Shortness of Breath. Denies: Pleuritic Chest Pain, Cough, Sputum, Hemoptysis, Wheezing Cardiovascular: Reports: Dyspnea on Exertion. Denies: Chest Pain, Palpitations, Orthopnea, PND, Edema, Lightheadedness Gastrointestinal: Reports: No Symptoms Genitourinary: Reports: No Symptoms - Patient Data Vitals - Most Recent: Last Vital Signs Temp 98.6 F 01/15/21 12:00 Pulse 88 01/15/21 12:00 Resp 20 01/15/21 12:00 BP 100/62 01/15/21 12:00 Pulse Ox 92 L 01/15/21 13:49 Weight - Most Recent: 101 lb I&O - Last 24 Hours: Intake & Output 01/14/21 01/15/21 01/15/21 22:59 06:59 14:59 Intake Total 640 280 Output Total 525 650 500 Balance 115 -650 -220 Lab Results Last 24 Hours: Laboratory Results - last 24 hr 01/15/21 Range/Units 04:25 Sodium 137 L (140-148) mmol/L Potassium 3.8 (3.6-5.2) mmol/L Chloride 98 L (100-108) mmol/L Carbon Dioxide 29 (21-32) mmol/L Anion Gap 13.8 (5.0-14.0) mmol/L BUN 59 H (7-18) mg/dL Creatinine 0.9 (0.6-1.0) mg/dL Est Cr Clr Drug Dosing 47.15 mL/min Estimated GFR (MDRD) > 60 (>60) Glucose 119 H (74-106) mg/dL Calcium 9.6 (8.5-10.1) mg/dL Total Bilirubin 0.4 (0.2-1.0) mg/dL AST 41 H (15-37) U/L ALT 36 (12-78) U/L Alkaline Phosphatase 59 (46-116) U/L Total Protein 6.8 (6.4-8.2) g/dL Albumin 2.7 L (3.4-5.0) g/dL Globulin 4.1 H (2.3-3.5) g/dL Albumin/Globulin Ratio 0.7 L (1.2-2.2) Steve Results Last 24 Hours: Microbiology 01/13/21 13:38 Urine Culture - Final Urine, Clean Catch Escherichia Coli Med Orders - Current: Current Medications Acetaminophen (Acetaminophen 325 Mg Tab) 650 mg PO Q4H PRN PRN Reason: Pain (Mild 1-3)/fever Last Admin: 01/15/21 12:53 Dose: 650 mg Documented by: Albuterol (Albuterol 8 Gm Inhaler) 0 gm INH Q4H PRN PRN Reason: Wheezing Last Admin: 01/13/21 10:12 Dose: 2 puff Documented by: Aspirin (Aspirin 81 Mg Tab.Ec) 81 mg PO DAILY [facility] Last Admin: 01/15/21 08:43 Dose: 81 mg Documented by: Benzonatate (Benzonatate 100 Mg Cap) 100 mg PO TID PRN PRN Reason: Cough Last Admin: 01/14/21 22:30 Dose: 100 mg Documented by: Cholecalciferol (Cholecalciferol (Vitamin D3) 25 Mcg Tab) 50 mcg PO DAILY [facility] Last Admin: 01/15/21 08:45 Dose: 50 mcg Documented by: Dexamethasone (Dexamethasone 4 Mg/Ml Sdv) 6 mg IVPUSH Q24H [facility] Last Admin: 01/14/21 20:50 Dose: Not Given Documented by: Enoxaparin Sodium (Enoxaparin 40 Mg/0.4 Ml Syringe) 40 mg SUBCUT Q24H [facility] Last Admin: 01/15/21 14:18 Dose: 40 mg Documented by: Guaifenesin/Dextromethorphan (Guaifenesin/Dextromethorphan 100-10 Mg/5 Ml Soln 10 Ml Cup) 10 ml PO Q4H PRN PRN Reason: Cough Last Admin: 01/14/21 19:33 Dose: 10 ml Documented by: Hydrochlorothiazide (Hydrochlorothiazide 12.5 Mg Cap) 12.5 mg PO DAILY [facility] Last Admin: 01/15/21 08:46 Dose: 12.5 mg Documented by: Remdesivir 100 mg/ Sodium (Chloride) 100 mls @ 100 mls/hr IV Q24H [facility] Stop: 01/17/21 14:59 Last Admin: 01/15/21 14:13 Dose: 100 mls/hr Documented by: Ceftriaxone Sodium 1 gm/ (Sodium Chloride) 50 mls @ 100 mls/hr IV Q24H [facility] Last Admin: 01/14/21 15:47 Dose: 100 mls/hr Documented by: Lactobacillus Rhamnosus (Lactobacillus Rhamnosus Gg (Probiotic) Cap) 1 cap PO BID [facility] Last Admin: 01/15/21 08:43 Dose: 1 cap Documented by: Lisinopril (Lisinopril 10 Mg Tab) 10 mg PO DAILY [facility] Last Admin: 01/15/21 08:46 Dose: 10 mg Documented by: Lorazepam (Lorazepam 2 Mg/Ml Sdv) 0.5 mg IVPUSH Q4H PRN PRN Reason: Nausea/Vomiting Magnesium Hydroxide (Magnesium Hydroxide 400 Mg/5 Ml Susp 30 Ml Cup) 30 ml PO Q12H PRN PRN Reason: Constipation Melatonin (Melatonin 3 Mg Tab) 9 mg PO BEDTIME PRN PRN Reason: Sleep Last Admin: 01/14/21 19:32 Dose: 9 mg Documented by: Nicotine (Nicotine 14 Mg/24 Hr Patch) 14 mg TRDERM DAILY [facility] Last Admin: 01/15/21 08:43 Dose: 14 mg Documented by: Ondansetron HCl (Ondansetron 4 Mg/2 Ml Sdv) 4 mg IV Q6H PRN PRN Reason: Nausea/Vomiting Ondansetron HCl (Ondansetron 4 Mg Tab.Dis) 4 mg PO Q6H PRN PRN Reason: Nausea able to take PO Oxycodone HCl (Oxycodone 5 Mg Tab) 5 mg PO Q4H PRN PRN Reason: Pain (moderate 4-6) Pantoprazole Sodium (Pantoprazole 40 Mg Tab.Cr) 40 mg PO ACBREAKFAST [facility] Last Admin: 01/15/21 08:42 Dose: 40 mg Documented by: Senna/Docusate Sodium (Docusate Sodium/Sennosides 50-8.6 Mg Tab) 1 tab PO BID PRN PRN Reason: Constipation Sodium Chloride (Sodium Chloride 0.9% 10 Ml Syringe) 10 ml FLUSH ASDIRECTED PRN PRN Reason: Keep Vein Open Last Admin: 01/13/21 09:17 Dose: 10 ml Documented by: Trazodone HCl (Trazodone 50 Mg Tab) 50 mg PO BEDTIME PRN PRN Reason: Sleep Last Admin: 01/14/21 19:32 Dose: 50 mg Documented by: Discontinued Medications Dexamethasone (Dexamethasone 4 Mg/Ml Sdv) 6 mg IVPUSH ONETIME ONE Stop: 01/12/21 20:50 Last Admin: 01/12/21 21:11 Dose: 6 mg Documented by: Hydrochlorothiazide (Hydrochlorothiazide 12.5 Mg Cap) 12.5 mg PO DAILY [facility] Last Admin: 01/13/21 10:40 Dose: Not Given Documented by: Sodium Chloride (Normal Saline) 1,000 mls @ 150 mls/hr IV ASDIRECTED [facility] Last Admin: 01/12/21 20:23 Dose: 150 mls/hr Documented by: Remdesivir 200 mg/ Sodium (Chloride) 250 mls @ 250 mls/hr IV ONETIME ONE Stop: 01/13/21 16:29 Last Admin: 01/13/21 15:52 Dose: 250 mls/hr Documented by: Lisinopril (Lisinopril 10 Mg Tab) 10 mg PO DAILY [facility] Last Admin: 01/13/21 10:11 Dose: 10 mg Documented by: Sodium Chloride (Sodium Chloride 0.9% 10 Ml Syringe) 10 ml FLUSH ASDIRECTED PRN PRN Reason: Keep Vein Open Last Admin: 01/13/21 09:18 Dose: 10 ml Documented by: - Exam Quality Assessment: Supplemental Oxygen, DVT Prophylaxis General: Alert, Oriented, Cooperative, Moderate Distress Lungs: Normal Respiratory Effort, Decreased Breath Sounds, Rales. No: Crackles, Rhonchi, Wheezing Cardiovascular: Regular Rate, Regular Rhythm, No Murmurs GI/Abdominal Exam: Soft, Non-Tender, No Organomegaly, No Distention Extremities: Non-Tender, No Pedal Edema - Patient Data Lab Results Last 24 hrs: Laboratory Results - last 24 hr 01/15/21 Range/Units 04:25 Sodium 137 L (140-148) mmol/L Potassium 3.8 (3.6-5.2) mmol/L Chloride 98 L (100-108) mmol/L Carbon Dioxide 29 (21-32) mmol/L Anion Gap 13.8 (5.0-14.0) mmol/L BUN 59 H (7-18) mg/dL Creatinine 0.9 (0.6-1.0) mg/dL Est Cr Clr Drug Dosing 47.15 mL/min Estimated GFR (MDRD) > 60 (>60) Glucose 119 H (74-106) mg/dL Calcium 9.6 (8.5-10.1) mg/dL Total Bilirubin 0.4 (0.2-1.0) mg/dL AST 41 H (15-37) U/L ALT 36 (12-78) U/L Alkaline Phosphatase 59 (46-116) U/L Total Protein 6.8 (6.4-8.2) g/dL Albumin 2.7 L (3.4-5.0) g/dL Globulin 4.1 H (2.3-3.5) g/dL Albumin/Globulin Ratio 0.7 L (1.2-2.2) Result Diagrams: 01/14/21 04:15 01/15/21 04:25 Steve Results Last 24 hrs: Microbiology 01/13/21 13:38 Urine Culture - Final Urine, Clean Catch Escherichia Coli Sepsis Event Note - Evaluation Sepsis Screening Result: No Definite Risk - Focused Exam Vital Signs: Vital Signs Temp Pulse Resp BP BP Pulse Ox 01/15/21 13:49 92 L 01/15/21 12:00 98.6 F 88 20 100/62 96 01/15/21 08:46 110/76 01/15/21 08:39 97.9 F 75 20 110/76 94 L 01/15/21 07:20 95 - Problem List Review Problem List Initiated/Reviewed/Updated: Yes - My Orders Last 24 Hours: My Active Orders 01/16/21 05:00 CBC WITH AUTO DIFF [HEME] Timed COMPREHENSIVE METABOLIC PN,CMP [CHEM] Timed 01/16/21 05:11 CRP [C-REACTIVE PROTEIN] [CHEM] AM D Dimer [D-DIMER QUANTITATIVE] [COAG] AM - Plan Plan:: ASSESSMENT AND PLAN - COVID-19 pneumonia-complicated by acute respiratory failure with hypoxia. Symptom onset 01/08. Moderate elevation of D-dimer and CRP with improvement since admission. Has required increased level of supplemental oxygen over the last 24 hours. -Dexamethasone every 24 hours (day 4) -Continue remdesivir, plan for 5 days of treatment (day 3) -Enoxaparin every 24 hours -Symptomatic management of cough -Inhaler as needed -Isolation precautions COPD with emphysema-this has been stable. Still smoking. -Management as above Acute kidney injury-secondary to dehydration and intravascular volume depletion. Creatinine has continued to improve. BUN still elevated. -Encourage oral intake Hyponatremia-secondary to intravascular volume depletion and hypovolemia. Slowly improving. Paroxysmal atrial fibrillation-heart rate normal. -Continue aspirin, consider beta-sara if rate control needed. Tobacco dependence-encourage cessation -Nicotine patch Maintenance issues - -DVT prophylaxis-enoxaparin -GI prophylaxis-GI -Nutrition-regular Disposition -I anticipate discharge home after the hospital stay Primary care physician - Dr Will
[2021-01-15] MEDS: cefTRIAXone 1 GM in Sodium Chloride 0.9% 50 ML IV SCH (15:33)
[2021-01-15] MEDS: Dexamethasone 4 MG/ML SDV IVPUSH SCH (19:46)
[2021-01-15] MEDS: Melatonin 3 MG Tab PO PRN (21:25)
[2021-01-16] MEDS: Hydrochlorothiazide 12.5 MG Cap PO SCH (08:44)
[2021-01-16] MEDS: Lactobacillus Rhamnosus GG (Probiotic) Cap PO SCH ×2 (08:44→20:00)
[2021-01-16] MEDS: Pantoprazole 40 MG Tab.CR PO SCH (08:44)
[2021-01-16] MEDS: Lisinopril 10 MG Tab PO SCH (08:44)
[2021-01-16] MEDS: Nicotine 14 MG/24 Hr Patch TRDERM SCH (08:45)
[2021-01-16] MEDS: Cholecalciferol (Vitamin D3) 25 MCG Tab PO SCH (08:45)
[2021-01-16] MEDS: Aspirin 81 MG Tab.EC PO SCH (08:45)
[2021-01-16] MEDS: Acetaminophen 325 MG Tab PO PRN ×3 (10:09→21:15)
[2021-01-16] MEDS: REMDESIVIR 100 MG in Sodium Chloride 0.9% 100 ML IV SCH (14:14)
[2021-01-16] MEDS: Enoxaparin 40 MG/0.4 ML Syringe SUBCUT SCH (14:15)
--- NOTE | 2021-01-16 14:44 | PCM.PN ---
- General Info Date of Service: 01/16/21 Subjective Update: Ms. Julian has remained fairly stable since yesterday. Supplemental oxygen requirements are unchanged over the last 24 hours. Subjectively she feels somewhat stronger and less short of breath. Functional Status: Reports: Urinating - Review of Systems General: Reports: Weakness, Fatigue. Denies: Fever, Chills Pulmonary: Reports: Shortness of Breath, Cough. Denies: Pleuritic Chest Pain, Sputum, Hemoptysis, Wheezing Cardiovascular: Reports: Dyspnea on Exertion. Denies: Chest Pain, Palpitations, Orthopnea, PND, Edema, Lightheadedness Gastrointestinal: Reports: No Symptoms Genitourinary: Reports: No Symptoms - Patient Data Vitals - Most Recent: Last Vital Signs Temp 97.7 F 01/16/21 10:45 Pulse 97 01/16/21 10:45 Resp 18 01/16/21 10:45 BP 84/49 L 01/16/21 10:45 Pulse Ox 91 L 01/16/21 13:07 Weight - Most Recent: 101 lb I&O - Last 24 Hours: Intake & Output 01/15/21 01/16/21 01/16/21 22:59 06:59 14:59 Intake Total 570 263 Output Total 350 Balance 220 263 Lab Results Last 24 Hours: Laboratory Results - last 24 hr 01/16/21 01/16/21 01/16/21 Range/Units 04:20 04:20 04:20 WBC 7.9 (4.5-11.0) K/uL RBC 4.94 (3.30-5.50) M/uL Hgb 14.8 (12.0-15.0) g/dL Hct 43.2 (36.0-48.0) % MCV 87 (80-98) fL MCH 30 (27-31) pg MCHC 34 (32-36) % Plt Count 350 (150-400) K/uL Neut % (Auto) 80.3 H (36-66) % Lymph % (Auto) 12.9 L (24-44) % [place] % (Auto) 5.8 (2-6) % Eos % (Auto) 0.0 L (2-4) % Baso % (Auto) 1.0 (0-1) % D-Dimer, Quantitative 1157.21 H (0.0-500.0) ng/mL Sodium 139 L (140-148) mmol/L Potassium 4.1 (3.6-5.2) mmol/L Chloride 98 L (100-108) mmol/L Carbon Dioxide 29 (21-32) mmol/L Anion Gap 16.1 H (5.0-14.0) mmol/L BUN 48 H (7-18) mg/dL Creatinine 0.8 (0.6-1.0) mg/dL Est Cr Clr Drug Dosing 53.41 mL/min Estimated GFR (MDRD) > 60 (>60) Glucose 123 H (74-106) mg/dL Calcium 9.4 (8.5-10.1) mg/dL Total Bilirubin 0.5 (0.2-1.0) mg/dL AST 25 (15-37) U/L ALT 32 (12-78) U/L Alkaline Phosphatase 53 (46-116) U/L C-Reactive Protein (0.0-0.3) mg/dL Total Protein 6.6 (6.4-8.2) g/dL Albumin 2.7 L (3.4-5.0) g/dL Globulin 3.9 H (2.3-3.5) g/dL Albumin/Globulin Ratio 0.7 L (1.2-2.2) 01/16/21 Range/Units 04:20 WBC (4.5-11.0) K/uL RBC (3.30-5.50) M/uL Hgb (12.0-15.0) g/dL Hct (36.0-48.0) % MCV (80-98) fL MCH (27-31) pg MCHC (32-36) % Plt Count (150-400) K/uL Neut % (Auto) (36-66) % Lymph % (Auto) (24-44) % [place] % (Auto) (2-6) % Eos % (Auto) (2-4) % Baso % (Auto) (0-1) % D-Dimer, Quantitative (0.0-500.0) ng/mL Sodium (140-148) mmol/L Potassium (3.6-5.2) mmol/L Chloride (100-108) mmol/L Carbon Dioxide (21-32) mmol/L Anion Gap (5.0-14.0) mmol/L BUN (7-18) mg/dL Creatinine (0.6-1.0) mg/dL Est Cr Clr Drug Dosing mL/min Estimated GFR (MDRD) (>60) Glucose (74-106) mg/dL Calcium (8.5-10.1) mg/dL Total Bilirubin (0.2-1.0) mg/dL AST (15-37) U/L ALT (12-78) U/L Alkaline Phosphatase (46-116) U/L C-Reactive Protein 1.12 H (0.0-0.3) mg/dL Total Protein (6.4-8.2) g/dL Albumin (3.4-5.0) g/dL Globulin (2.3-3.5) g/dL Albumin/Globulin Ratio (1.2-2.2) Med Orders - Current: Current Medications Acetaminophen (Acetaminophen 325 Mg Tab) 650 mg PO Q4H PRN PRN Reason: Pain (Mild 1-3)/fever Last Admin: 01/16/21 10:09 Dose: 650 mg Documented by: Albuterol (Albuterol 8 Gm Inhaler) 0 gm INH Q4H PRN PRN Reason: Wheezing Last Admin: 01/13/21 10:12 Dose: 2 puff Documented by: Aspirin (Aspirin 81 Mg Tab.Ec) 81 mg PO DAILY [facility] Last Admin: 01/16/21 08:45 Dose: 81 mg Documented by: Benzonatate (Benzonatate 100 Mg Cap) 100 mg PO TID PRN PRN Reason: Cough Last Admin: 01/14/21 22:30 Dose: 100 mg Documented by: Cholecalciferol (Cholecalciferol (Vitamin D3) 25 Mcg Tab) 50 mcg PO DAILY [facility] Last Admin: 01/16/21 08:45 Dose: 50 mcg Documented by: Dexamethasone (Dexamethasone 4 Mg/Ml Sdv) 6 mg IVPUSH Q24H [facility] Last Admin: 01/15/21 19:46 Dose: 6 mg Documented by: Enoxaparin Sodium (Enoxaparin 40 Mg/0.4 Ml Syringe) 40 mg SUBCUT Q24H [facility] Last Admin: 01/16/21 14:15 Dose: 40 mg Documented by: Guaifenesin/Dextromethorphan (Guaifenesin/Dextromethorphan 100-10 Mg/5 Ml Soln 10 Ml Cup) 10 ml PO Q4H PRN PRN Reason: Cough Last Admin: 01/14/21 19:33 Dose: 10 ml Documented by: Hydrochlorothiazide (Hydrochlorothiazide 12.5 Mg Cap) 12.5 mg PO DAILY [facility] Last Admin: 01/16/21 08:44 Dose: 12.5 mg Documented by: Remdesivir 100 mg/ Sodium (Chloride) 100 mls @ 100 mls/hr IV Q24H [facility] Stop: 01/17/21 14:59 Last Admin: 01/16/21 14:14 Dose: 100 mls/hr Documented by: Ceftriaxone Sodium 1 gm/ (Sodium Chloride) 50 mls @ 100 mls/hr IV Q24H [facility] Last Admin: 01/15/21 15:33 Dose: 100 mls/hr Documented by: Lactobacillus Rhamnosus (Lactobacillus Rhamnosus Gg (Probiotic) Cap) 1 cap PO BID [facility] Last Admin: 01/16/21 08:44 Dose: 1 cap Documented by: Lisinopril (Lisinopril 10 Mg Tab) 10 mg PO DAILY [facility] Last Admin: 01/16/21 08:44 Dose: 10 mg Documented by: Lorazepam (Lorazepam 2 Mg/Ml Sdv) 0.5 mg IVPUSH Q4H PRN PRN Reason: Nausea/Vomiting Magnesium Hydroxide (Magnesium Hydroxide 400 Mg/5 Ml Susp 30 Ml Cup) 30 ml PO Q12H PRN PRN Reason: Constipation Melatonin (Melatonin 3 Mg Tab) 9 mg PO BEDTIME PRN PRN Reason: Sleep Last Admin: 01/15/21 21:25 Dose: 9 mg Documented by: Nicotine (Nicotine 14 Mg/24 Hr Patch) 14 mg TRDERM DAILY [facility] Last Admin: 01/16/21 08:45 Dose: 14 mg Documented by: Ondansetron HCl (Ondansetron 4 Mg/2 Ml Sdv) 4 mg IV Q6H PRN PRN Reason: Nausea/Vomiting Ondansetron HCl (Ondansetron 4 Mg Tab.Dis) 4 mg PO Q6H PRN PRN Reason: Nausea able to take PO Oxycodone HCl (Oxycodone 5 Mg Tab) 5 mg PO Q4H PRN PRN Reason: Pain (moderate 4-6) Last Admin: 01/15/21 15:32 Dose: 5 mg Documented by: Pantoprazole Sodium (Pantoprazole 40 Mg Tab.Cr) 40 mg PO ACBREAKFAST [facility] Last Admin: 01/16/21 08:44 Dose: 40 mg Documented by: Senna/Docusate Sodium (Docusate Sodium/Sennosides 50-8.6 Mg Tab) 1 tab PO BID PRN PRN Reason: Constipation Sodium Chloride (Sodium Chloride 0.9% 10 Ml Syringe) 10 ml FLUSH ASDIRECTED PRN PRN Reason: Keep Vein Open Last Admin: 01/13/21 09:17 Dose: 10 ml Documented by: Trazodone HCl (Trazodone 50 Mg Tab) 50 mg PO BEDTIME PRN PRN Reason: Sleep Last Admin: 01/14/21 19:32 Dose: 50 mg Documented by: Discontinued Medications Dexamethasone (Dexamethasone 4 Mg/Ml Sdv) 6 mg IVPUSH ONETIME ONE Stop: 01/12/21 20:50 Last Admin: 01/12/21 21:11 Dose: 6 mg Documented by: Hydrochlorothiazide (Hydrochlorothiazide 12.5 Mg Cap) 12.5 mg PO DAILY [facility] Last Admin: 01/13/21 10:40 Dose: Not Given Documented by: Sodium Chloride (Normal Saline) 1,000 mls @ 150 mls/hr IV ASDIRECTED [facility] Last Admin: 01/12/21 20:23 Dose: 150 mls/hr Documented by: Remdesivir 200 mg/ Sodium (Chloride) 250 mls @ 250 mls/hr IV ONETIME ONE Stop: 01/13/21 16:29 Last Admin: 01/13/21 15:52 Dose: 250 mls/hr Documented by: Lisinopril (Lisinopril 10 Mg Tab) 10 mg PO DAILY [facility] Last Admin: 01/13/21 10:11 Dose: 10 mg Documented by: Sodium Chloride (Sodium Chloride 0.9% 10 Ml Syringe) 10 ml FLUSH ASDIRECTED PRN PRN Reason: Keep Vein Open Last Admin: 01/13/21 09:18 Dose: 10 ml Documented by: - Exam Quality Assessment: Supplemental Oxygen, DVT Prophylaxis General: Alert, Oriented, Cooperative, Moderate Distress Lungs: Normal Respiratory Effort, Decreased Breath Sounds, Crackles. No: Rales, Rhonchi, Wheezing Cardiovascular: Regular Rate, Regular Rhythm, No Murmurs GI/Abdominal Exam: Soft, Non-Tender, No Organomegaly, No Distention Extremities: Non-Tender, No Pedal Edema - Patient Data Lab Results Last 24 hrs: Laboratory Results - last 24 hr 01/16/21 01/16/21 01/16/21 Range/Units 04:20 04:20 04:20 WBC 7.9 (4.5-11.0) K/uL RBC 4.94 (3.30-5.50) M/uL Hgb 14.8 (12.0-15.0) g/dL Hct 43.2 (36.0-48.0) % MCV 87 (80-98) fL MCH 30 (27-31) pg MCHC 34 (32-36) % Plt Count 350 (150-400) K/uL Neut % (Auto) 80.3 H (36-66) % Lymph % (Auto) 12.9 L (24-44) % [place] % (Auto) 5.8 (2-6) % Eos % (Auto) 0.0 L (2-4) % Baso % (Auto) 1.0 (0-1) % D-Dimer, Quantitative 1157.21 H (0.0-500.0) ng/mL Sodium 139 L (140-148) mmol/L Potassium 4.1 (3.6-5.2) mmol/L Chloride 98 L (100-108) mmol/L Carbon Dioxide 29 (21-32) mmol/L Anion Gap 16.1 H (5.0-14.0) mmol/L BUN 48 H (7-18) mg/dL Creatinine 0.8 (0.6-1.0) mg/dL Est Cr Clr Drug Dosing 53.41 mL/min Estimated GFR (MDRD) > 60 (>60) Glucose 123 H (74-106) mg/dL Calcium 9.4 (8.5-10.1) mg/dL Total Bilirubin 0.5 (0.2-1.0) mg/dL AST 25 (15-37) U/L ALT 32 (12-78) U/L Alkaline Phosphatase 53 (46-116) U/L C-Reactive Protein (0.0-0.3) mg/dL Total Protein 6.6 (6.4-8.2) g/dL Albumin 2.7 L (3.4-5.0) g/dL Globulin 3.9 H (2.3-3.5) g/dL Albumin/Globulin Ratio 0.7 L (1.2-2.2) 01/16/21 Range/Units 04:20 WBC (4.5-11.0) K/uL RBC (3.30-5.50) M/uL Hgb (12.0-15.0) g/dL Hct (36.0-48.0) % MCV (80-98) fL MCH (27-31) pg MCHC (32-36) % Plt Count (150-400) K/uL Neut % (Auto) (36-66) % Lymph % (Auto) (24-44) % [place] % (Auto) (2-6) % Eos % (Auto) (2-4) % Baso % (Auto) (0-1) % D-Dimer, Quantitative (0.0-500.0) ng/mL Sodium (140-148) mmol/L Potassium (3.6-5.2) mmol/L Chloride (100-108) mmol/L Carbon Dioxide (21-32) mmol/L Anion Gap (5.0-14.0) mmol/L BUN (7-18) mg/dL Creatinine (0.6-1.0) mg/dL Est Cr Clr Drug Dosing mL/min Estimated GFR (MDRD) (>60) Glucose (74-106) mg/dL Calcium (8.5-10.1) mg/dL Total Bilirubin (0.2-1.0) mg/dL AST (15-37) U/L ALT (12-78) U/L Alkaline Phosphatase (46-116) U/L C-Reactive Protein 1.12 H (0.0-0.3) mg/dL Total Protein (6.4-8.2) g/dL Albumin (3.4-5.0) g/dL Globulin (2.3-3.5) g/dL Albumin/Globulin Ratio (1.2-2.2) Result Diagrams: 01/16/21 04:20 01/16/21 04:20 Sepsis Event Note - Evaluation Sepsis Screening Result: No Definite Risk - Focused Exam Vital Signs: Vital Signs Temp Pulse Resp BP BP Pulse Ox 01/16/21 13:07 91 L 01/16/21 10:45 97.7 F 97 18 84/49 L 92 L 01/16/21 08:44 115/75 01/16/21 07:40 97.7 F 76 18 115/75 96 01/16/21 07:22 95 01/16/21 02:48 97.9 F 67 16 94/65 99 - Problem List Review Problem List Initiated/Reviewed/Updated: Yes - My Orders Last 24 Hours: My Active Orders 01/17/21 05:00 COMPREHENSIVE METABOLIC PN,CMP [CHEM] Timed - Plan Plan:: ASSESSMENT AND PLAN - COVID-19 pneumonia-complicated by acute respiratory failure with hypoxia. S ymptom onset 01/08. Moderate elevation of D-dimer and CRP with improvement since admission. Level of supplemental oxygen has remained stable since yesterday -Dexamethasone every 24 hours (day 5) -Continue remdesivir, plan for 5 days of treatment (day 4) -Enoxaparin every 24 hours -Symptomatic management of cough -Inhaler as needed -Isolation precautions COPD with emphysema-this has been stable. Still smoking. -Management as above Acute kidney injury-secondary to dehydration and intravascular volume depletion. Creatinine has normalized and BUN improved -Encourage oral intake Hyponatremia-secondary to intravascular volume depletion and hypovolemia. Slowly improving. Paroxysmal atrial fibrillation-heart rate normal. -Continue aspirin, consider beta-sara if rate control needed. Tobacco dependence-encourage cessation -Nicotine patch Maintenance issues - -DVT prophylaxis-enoxaparin -GI prophylaxis-GI -Nutrition-regular Disposition -I anticipate discharge home after the hospital stay Primary care physician - Dr Will
[2021-01-16] MEDS: cefTRIAXone 1 GM in Sodium Chloride 0.9% 50 ML IV SCH (15:33)
[2021-01-16] MEDS: Dexamethasone 4 MG/ML SDV IVPUSH SCH (19:55)
[2021-01-16] MEDS: Melatonin 3 MG Tab PO PRN (21:14)
[2021-01-17] MEDS: Pantoprazole 40 MG Tab.CR PO SCH (07:41)
[2021-01-17] MEDS: Hydrochlorothiazide 12.5 MG Cap PO SCH (09:56)
[2021-01-17] MEDS: Lisinopril 10 MG Tab PO SCH (09:57)
[2021-01-17] MEDS: Lactobacillus Rhamnosus GG (Probiotic) Cap PO SCH ×2 (09:57→20:55)
[2021-01-17] MEDS: Cholecalciferol (Vitamin D3) 25 MCG Tab PO SCH (09:57)
[2021-01-17] MEDS: Aspirin 81 MG Tab.EC PO SCH (09:57)
[2021-01-17] MEDS ORDERED: Nicotine Polacrilex 2 MG Gum CHEW PRN (11:03)
[2021-01-17] MEDS: Nicotine 14 MG/24 Hr Patch TRDERM SCH (11:05)
[2021-01-17] MEDS: Acetaminophen 325 MG Tab PO PRN ×2 (11:37→21:00)
[2021-01-17] MEDS: Nicotine 21 MG/24 Hr Patch TRDERM SCH (11:48)
[2021-01-17] MEDS: Enoxaparin 40 MG/0.4 ML Syringe SUBCUT SCH (14:46)
[2021-01-17] MEDS: REMDESIVIR 100 MG in Sodium Chloride 0.9% 100 ML IV SCH (14:46)
[2021-01-17] MEDS: cefTRIAXone 1 GM in Sodium Chloride 0.9% 50 ML IV SCH (15:53)
--- NOTE | 2021-01-17 16:16 | PCM.PN ---
- General Info Date of Service: 01/17/21 Subjective Update: Ms. Julian has felt somewhat improved over the last 24 hours with increased energy and less shortness of breath. Continues to require same amount of supplemental oxygen since yesterday. Vital signs otherwise have been stable and she has remained afebrile. Functional Status: Reports: Urinating - Review of Systems General: Reports: Weakness, Fatigue. Denies: Fever, Chills Pulmonary: Reports: Shortness of Breath, Cough. Denies: Pleuritic Chest Pain, Sputum, Hemoptysis, Wheezing Cardiovascular: Reports: Dyspnea on Exertion. Denies: Chest Pain, Palpitations, Orthopnea, PND, Edema, Lightheadedness Gastrointestinal: Reports: No Symptoms Genitourinary: Reports: No Symptoms - Patient Data Vitals - Most Recent: Last Vital Signs Temp 96.8 F L 01/17/21 14:33 Pulse 82 01/17/21 14:33 Resp 18 01/17/21 14:33 BP 113/74 01/17/21 14:33 Pulse Ox 91 L 01/17/21 14:33 Weight - Most Recent: 101 lb I&O - Last 24 Hours: Intake & Output 01/17/21 01/17/21 01/17/21 06:59 14:59 22:59 Intake Total 296 Output Total 300 Balance -4 Lab Results Last 24 Hours: Laboratory Results - last 24 hr 01/17/21 Range/Units 06:00 Sodium 140 (140-148) mmol/L Potassium 4.9 (3.6-5.2) mmol/L Chloride 99 L (100-108) mmol/L Carbon Dioxide 32 (21-32) mmol/L Anion Gap 13.9 (5.0-14.0) mmol/L BUN 43 H (7-18) mg/dL Creatinine 0.8 (0.6-1.0) mg/dL Est Cr Clr Drug Dosing 53.41 mL/min Estimated GFR (MDRD) > 60 (>60) Glucose 114 H (74-106) mg/dL Calcium 9.4 (8.5-10.1) mg/dL Total Bilirubin 0.5 (0.2-1.0) mg/dL AST 26 (15-37) U/L ALT 33 (12-78) U/L Alkaline Phosphatase 54 (46-116) U/L Total Protein 6.3 L (6.4-8.2) g/dL Albumin 2.7 L (3.4-5.0) g/dL Globulin 3.6 H (2.3-3.5) g/dL Albumin/Globulin Ratio 0.8 L (1.2-2.2) Med Orders - Current: Current Medications Acetaminophen (Acetaminophen 325 Mg Tab) 650 mg PO Q4H PRN PRN Reason: Pain (Mild 1-3)/fever Last Admin: 01/17/21 11:37 Dose: 650 mg Documented by: Albuterol (Albuterol 8 Gm Inhaler) 0 gm INH Q4H PRN PRN Reason: Wheezing Last Admin: 01/13/21 10:12 Dose: 2 puff Documented by: Aspirin (Aspirin 81 Mg Tab.Ec) 81 mg PO DAILY [facility] Last Admin: 01/17/21 09:57 Dose: 81 mg Documented by: Benzonatate (Benzonatate 100 Mg Cap) 100 mg PO TID PRN PRN Reason: Cough Last Admin: 01/14/21 22:30 Dose: 100 mg Documented by: Cholecalciferol (Cholecalciferol (Vitamin D3) 25 Mcg Tab) 50 mcg PO DAILY [facility] Last Admin: 01/17/21 09:57 Dose: 50 mcg Documented by: Dexamethasone (Dexamethasone 4 Mg/Ml Sdv) 6 mg IVPUSH Q24H [facility] Last Admin: 01/16/21 19:55 Dose: 6 mg Documented by: Enoxaparin Sodium (Enoxaparin 40 Mg/0.4 Ml Syringe) 40 mg SUBCUT Q24H [facility] Last Admin: 01/17/21 14:46 Dose: 40 mg Documented by: Guaifenesin/Dextromethorphan (Guaifenesin/Dextromethorphan 100-10 Mg/5 Ml Soln 10 Ml Cup) 10 ml PO Q4H PRN PRN Reason: Cough Last Admin: 01/14/21 19:33 Dose: 10 ml Documented by: Hydrochlorothiazide (Hydrochlorothiazide 12.5 Mg Cap) 12.5 mg PO DAILY [facility] Last Admin: 01/17/21 09:56 Dose: 12.5 mg Documented by: Ceftriaxone Sodium 1 gm/ (Sodium Chloride) 50 mls @ 100 mls/hr IV Q24H [facility] Last Admin: 01/17/21 15:53 Dose: 100 mls/hr Documented by: Lactobacillus Rhamnosus (Lactobacillus Rhamnosus Gg (Probiotic) Cap) 1 cap PO BID [facility] Last Admin: 01/17/21 09:57 Dose: 1 cap Documented by: Lisinopril (Lisinopril 10 Mg Tab) 10 mg PO DAILY [facility] Last Admin: 01/17/21 09:57 Dose: 10 mg Documented by: Lorazepam (Lorazepam 2 Mg/Ml Sdv) 0.5 mg IVPUSH Q4H PRN PRN Reason: Nausea/Vomiting Magnesium Hydroxide (Magnesium Hydroxide 400 Mg/5 Ml Susp 30 Ml Cup) 30 ml PO Q12H PRN PRN Reason: Constipation Melatonin (Melatonin 3 Mg Tab) 9 mg PO BEDTIME PRN PRN Reason: Sleep Last Admin: 01/16/21 21:14 Dose: 9 mg Documented by: Nicotine (Nicotine 21 Mg/24 Hr Patch) 21 mg TRDERM DAILY [facility] Last Admin: 01/17/21 11:48 Dose: 21 mg Documented by: Nicotine Polacrilex (Nicotine Polacrilex 2 Mg Gum) 2 mg CHEW Q1H PRN PRN Reason: Other Ondansetron HCl (Ondansetron 4 Mg/2 Ml Sdv) 4 mg IV Q6H PRN PRN Reason: Nausea/Vomiting Ondansetron HCl (Ondansetron 4 Mg Tab.Dis) 4 mg PO Q6H PRN PRN Reason: Nausea able to take PO Oxycodone HCl (Oxycodone 5 Mg Tab) 5 mg PO Q4H PRN PRN Reason: Pain (moderate 4-6) Last Admin: 01/15/21 15:32 Dose: 5 mg Documented by: Pantoprazole Sodium (Pantoprazole 40 Mg Tab.Cr) 40 mg PO ACBREAKFAST [facility] Last Admin: 01/17/21 07:41 Dose: 40 mg Documented by: Senna/Docusate Sodium (Docusate Sodium/Sennosides 50-8.6 Mg Tab) 1 tab PO BID PRN PRN Reason: Constipation Sodium Chloride (Sodium Chloride 0.9% 10 Ml Syringe) 10 ml FLUSH ASDIRECTED PRN PRN Reason: Keep Vein Open Last Admin: 01/13/21 09:17 Dose: 10 ml Documented by: Trazodone HCl (Trazodone 50 Mg Tab) 50 mg PO BEDTIME PRN PRN Reason: Sleep Last Admin: 01/14/21 19:32 Dose: 50 mg Documented by: Discontinued Medications Dexamethasone (Dexamethasone 4 Mg/Ml Sdv) 6 mg IVPUSH ONETIME ONE Stop: 01/12/21 20:50 Last Admin: 01/12/21 21:11 Dose: 6 mg Documented by: Hydrochlorothiazide (Hydrochlorothiazide 12.5 Mg Cap) 12.5 mg PO DAILY [facility] Last Admin: 01/13/21 10:40 Dose: Not Given Documented by: Sodium Chloride (Normal Saline) 1,000 mls @ 150 mls/hr IV ASDIRECTED [facility] Last Admin: 01/12/21 20:23 Dose: 150 mls/hr Documented by: Remdesivir 200 mg/ Sodium (Chloride) 250 mls @ 250 mls/hr IV ONETIME ONE Stop: 01/13/21 16:29 Last Admin: 01/13/21 15:52 Dose: 250 mls/hr Documented by: Remdesivir 100 mg/ Sodium (Chloride) 100 mls @ 100 mls/hr IV Q24H [facility] Stop: 01/17/21 14:59 Last Admin: 01/17/21 14:46 Dose: 100 mls/hr Documented by: Lisinopril (Lisinopril 10 Mg Tab) 10 mg PO DAILY [facility] Last Admin: 01/13/21 10:11 Dose: 10 mg Documented by: Nicotine (Nicotine 14 Mg/24 Hr Patch) 14 mg TRDERM DAILY [facility] Last Admin: 01/17/21 11:05 Dose: Not Given Documented by: Sodium Chloride (Sodium Chloride 0.9% 10 Ml Syringe) 10 ml FLUSH ASDIRECTED PRN PRN Reason: Keep Vein Open Last Admin: 01/13/21 09:18 Dose: 10 ml Documented by: - Exam Quality Assessment: Supplemental Oxygen, DVT Prophylaxis General: Alert, Oriented, Cooperative, Moderate Distress Lungs: Clear to Auscultation, Normal Respiratory Effort, Decreased Breath Sounds, Crackles. No: Rales, Rhonchi, Wheezing Cardiovascular: Regular Rate, Regular Rhythm, No Murmurs GI/Abdominal Exam: Soft, Non-Tender, No Organomegaly, No Distention Extremities: Non-Tender, No Pedal Edema - Patient Data Lab Results Last 24 hrs: Laboratory Results - last 24 hr 01/17/21 Range/Units 06:00 Sodium 140 (140-148) mmol/L Potassium 4.9 (3.6-5.2) mmol/L Chloride 99 L (100-108) mmol/L Carbon Dioxide 32 (21-32) mmol/L Anion Gap 13.9 (5.0-14.0) mmol/L BUN 43 H (7-18) mg/dL Creatinine 0.8 (0.6-1.0) mg/dL Est Cr Clr Drug Dosing 53.41 mL/min Estimated GFR (MDRD) > 60 (>60) Glucose 114 H (74-106) mg/dL Calcium 9.4 (8.5-10.1) mg/dL Total Bilirubin 0.5 (0.2-1.0) mg/dL AST 26 (15-37) U/L ALT 33 (12-78) U/L Alkaline Phosphatase 54 (46-116) U/L Total Protein 6.3 L (6.4-8.2) g/dL Albumin 2.7 L (3.4-5.0) g/dL Globulin 3.6 H (2.3-3.5) g/dL Albumin/Globulin Ratio 0.8 L (1.2-2.2) Result Diagrams: 01/16/21 04:20 01/17/21 06:00 Sepsis Event Note - Evaluation Sepsis Screening Result: No Definite Risk - Focused Exam Vital Signs: Vital Signs Temp Pulse Resp BP BP Pulse Ox Pulse Ox 01/17/21 14:33 96.8 F L 82 18 113/74 91 L 01/17/21 13:04 97 01/17/21 11:33 97.9 F 91 20 107/73 96 01/17/21 10:52 96 01/17/21 09:57 106/79 01/17/21 08:04 98.2 F 79 20 106/79 96 01/17/21 07:11 98 - Problem List Review Problem List Initiated/Reviewed/Updated: Yes - My Orders Last 24 Hours: My Active Orders 01/17/21 09:00 Nicotine [Habitrol] 21 mg TRDERM DAILY 01/17/21 11:03 Nicotine Polacrilex [Nicorelief] 2 mg CHEW Q1H PRN 01/17/21 13:11 PT Evaluation and Treatment [CONS] Routine 01/18/21 05:00 CBC WITH AUTO DIFF [HEME] Timed COMPREHENSIVE METABOLIC PN,CMP [CHEM] Timed 01/18/21 05:11 CRP [C-REACTIVE PROTEIN] [CHEM] AM D Dimer [D-DIMER QUANTITATIVE] [COAG] AM - Plan Plan:: ASSESSMENT AND PLAN - COVID-19 pneumonia-complicated by acute respiratory failure with hypoxia. Symptom onset 01/08. Moderate elevation of D-dimer and CRP with improvement since admission. 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 Still smoking. -Management as above Acute kidney injury-resolved -Encourage oral intake Hyponatremia-proved Paroxysmal atrial fibrillation-heart rate normal. -Continue aspirin, consider beta-sara if rate control needed. Tobacco dependence-encourage cessation -Nicotine patch Maintenance issues - -DVT prophylaxis-enoxaparin -GI prophylaxis-GI -Nutrition-regular Disposition -I anticipate discharge home after the hospital stay Primary care physician - Dr Will
[2021-01-17] MEDS: Melatonin 3 MG Tab PO PRN (20:53)
[2021-01-17] MEDS: Dexamethasone 4 MG/ML SDV IVPUSH SCH (20:56)
[2021-01-18] MEDS: Pantoprazole 40 MG Tab.CR PO SCH (07:16)
[2021-01-18] MEDS: Hydrochlorothiazide 12.5 MG Cap PO SCH (08:19)
[2021-01-18] MEDS: Aspirin 81 MG Tab.EC PO SCH (08:19)
[2021-01-18] MEDS: Lisinopril 10 MG Tab PO SCH (08:19)
[2021-01-18] MEDS: Cholecalciferol (Vitamin D3) 25 MCG Tab PO SCH (08:19)
[2021-01-18] MEDS: Lactobacillus Rhamnosus GG (Probiotic) Cap PO SCH ×2 (08:19→21:21)
[2021-01-18] MEDS: Nicotine 21 MG/24 Hr Patch TRDERM SCH (08:20)
[2021-01-18] MEDS: Acetaminophen 325 MG Tab PO PRN ×2 (13:05→19:51)
[2021-01-18] MEDS: Enoxaparin 40 MG/0.4 ML Syringe SUBCUT SCH (14:21)
--- NOTE | 2021-01-18 14:50 | PCM.PN ---
- General Info Date of Service: 01/18/21 Subjective Update: Ms. Julian is doing well today. Good improvement in oxygenation and last 24 hours, she is now down to 2 L of oxygen per minute via nasal cannula. Symptoms continue to improve with less cough and shortness of breath. Functional Status: Reports: Tolerating Diet, Ambulating, Urinating - Review of Systems General: Reports: Weakness, Fatigue. Denies: Fever, Chills Pulmonary: Reports: Shortness of Breath, Cough. Denies: Pleuritic Chest Pain, Sputum, Hemoptysis, Wheezing Cardiovascular: Reports: Dyspnea on Exertion. Denies: Chest Pain, Palpitations, Orthopnea, PND, Edema, Lightheadedness Gastrointestinal: Reports: No Symptoms Genitourinary: Reports: No Symptoms - Patient Data Vitals - Most Recent: Last Vital Signs Temp 98.1 F 01/18/21 11:10 Pulse 74 01/18/21 11:10 Resp 18 01/18/21 11:10 BP 102/69 01/18/21 11:10 Pulse Ox 94 L 01/18/21 14:22 Weight - Most Recent: 101 lb I&O - Last 24 Hours: Intake & Output 01/17/21 01/18/21 01/18/21 22:59 06:59 14:59 Intake Total 240 240 240 Output Total 800 Balance -560 240 240 Lab Results Last 24 Hours: Laboratory Results - last 24 hr 01/18/21 01/18/21 01/18/21 Range/Units 05:40 05:40 05:40 WBC 5.7 (4.5-11.0) K/uL RBC 5.01 (3.30-5.50) M/uL Hgb 15.0 (12.0-15.0) g/dL Hct 43.9 (36.0-48.0) % MCV 88 (80-98) fL MCH 30 (27-31) pg MCHC 34 (32-36) % Plt Count 433 H (150-400) K/uL Add Manual Diff Yes Neutrophils % (Manual) 84 H (36-66) % Lymphocytes % (Manual) 11 L (24-44) % Monocytes % (Manual) 4 (2-6) % Basophils % (Manual) 1 (0-1) % Atypical Lymphocytes Few D-Dimer, Quantitative 779.76 H (0.0-500.0) ng/mL Sodium 138 L (140-148) mmol/L Potassium 4.5 (3.6-5.2) mmol/L Chloride 99 L (100-108) mmol/L Carbon Dioxide 30 (21-32) mmol/L Anion Gap 13.5 (5.0-14.0) mmol/L BUN 38 H (7-18) mg/dL Creatinine 0.6 (0.6-1.0) mg/dL Est Cr Clr Drug Dosing 71.21 mL/min Estimated GFR (MDRD) > 60 (>60) Glucose 118 H (74-106) mg/dL Calcium 9.6 (8.5-10.1) mg/dL Total Bilirubin 0.5 (0.2-1.0) mg/dL AST 34 (15-37) U/L ALT 35 (12-78) U/L Alkaline Phosphatase 48 (46-116) U/L C-Reactive Protein (0.0-0.3) mg/dL Total Protein 6.6 (6.4-8.2) g/dL Albumin 2.7 L (3.4-5.0) g/dL Globulin 3.9 H (2.3-3.5) g/dL Albumin/Globulin Ratio 0.7 L (1.2-2.2) 01/18/21 Range/Units 05:40 WBC (4.5-11.0) K/uL RBC (3.30-5.50) M/uL Hgb (12.0-15.0) g/dL Hct (36.0-48.0) % MCV (80-98) fL MCH (27-31) pg MCHC (32-36) % Plt Count (150-400) K/uL Add Manual Diff Neutrophils % (Manual) (36-66) % Lymphocytes % (Manual) (24-44) % Monocytes % (Manual) (2-6) % Basophils % (Manual) (0-1) % Atypical Lymphocytes D-Dimer, Quantitative (0.0-500.0) ng/mL Sodium (140-148) mmol/L Potassium (3.6-5.2) mmol/L Chloride (100-108) mmol/L Carbon Dioxide (21-32) mmol/L Anion Gap (5.0-14.0) mmol/L BUN (7-18) mg/dL Creatinine (0.6-1.0) mg/dL Est Cr Clr Drug Dosing mL/min Estimated GFR (MDRD) (>60) Glucose (74-106) mg/dL Calcium (8.5-10.1) mg/dL Total Bilirubin (0.2-1.0) mg/dL AST (15-37) U/L ALT (12-78) U/L Alkaline Phosphatase (46-116) U/L C-Reactive Protein 0.36 H (0.0-0.3) mg/dL Total Protein (6.4-8.2) g/dL Albumin (3.4-5.0) g/dL Globulin (2.3-3.5) g/dL Albumin/Globulin Ratio (1.2-2.2) Med Orders - Current: Current Medications Acetaminophen (Acetaminophen 325 Mg Tab) 650 mg PO Q4H PRN PRN Reason: Pain (Mild 1-3)/fever Last Admin: 01/18/21 13:05 Dose: 650 mg Documented by: Albuterol (Albuterol 8 Gm Inhaler) 0 gm INH Q4H PRN PRN Reason: Wheezing Last Admin: 01/13/21 10:12 Dose: 2 puff Documented by: Aspirin (Aspirin 81 Mg Tab.Ec) 81 mg PO DAILY [facility] Last Admin: 01/18/21 08:19 Dose: 81 mg Documented by: Benzonatate (Benzonatate 100 Mg Cap) 100 mg PO TID PRN PRN Reason: Cough Last Admin: 01/14/21 22:30 Dose: 100 mg Documented by: Cholecalciferol (Cholecalciferol (Vitamin D3) 25 Mcg Tab) 50 mcg PO DAILY [facility] Last Admin: 01/18/21 08:19 Dose: 50 mcg Documented by: Dexamethasone (Dexamethasone 4 Mg/Ml Sdv) 6 mg IVPUSH Q24H [facility] Last Admin: 01/17/21 20:56 Dose: 6 mg Documented by: Enoxaparin Sodium (Enoxaparin 40 Mg/0.4 Ml Syringe) 40 mg SUBCUT Q24H [facility] Last Admin: 01/18/21 14:21 Dose: 40 mg Documented by: Guaifenesin/Dextromethorphan (Guaifenesin/Dextromethorphan 100-10 Mg/5 Ml Soln 10 Ml Cup) 10 ml PO Q4H PRN PRN Reason: Cough Last Admin: 01/14/21 19:33 Dose: 10 ml Documented by: Hydrochlorothiazide (Hydrochlorothiazide 12.5 Mg Cap) 12.5 mg PO DAILY [facility] Last Admin: 01/18/21 08:19 Dose: 12.5 mg Documented by: Ceftriaxone Sodium 1 gm/ (Sodium Chloride) 50 mls @ 100 mls/hr IV Q24H [facility] Last Admin: 01/17/21 15:53 Dose: 100 mls/hr Documented by: Lactobacillus Rhamnosus (Lactobacillus Rhamnosus Gg (Probiotic) Cap) 1 cap PO BID [facility] Last Admin: 01/18/21 08:19 Dose: 1 cap Documented by: Lisinopril (Lisinopril 10 Mg Tab) 10 mg PO DAILY [facility] Last Admin: 01/18/21 08:19 Dose: 10 mg Documented by: Lorazepam (Lorazepam 2 Mg/Ml Sdv) 0.5 mg IVPUSH Q4H PRN PRN Reason: Nausea/Vomiting Magnesium Hydroxide (Magnesium Hydroxide 400 Mg/5 Ml Susp 30 Ml Cup) 30 ml PO Q12H PRN PRN Reason: Constipation Melatonin (Melatonin 3 Mg Tab) 9 mg PO BEDTIME PRN PRN Reason: Sleep Last Admin: 01/17/21 20:53 Dose: 9 mg Documented by: Nicotine (Nicotine 21 Mg/24 Hr Patch) 21 mg TRDERM DAILY [facility] Last Admin: 01/18/21 08:20 Dose: 21 mg Documented by: Nicotine Polacrilex (Nicotine Polacrilex 2 Mg Gum) 2 mg CHEW Q1H PRN PRN Reason: Other Ondansetron HCl (Ondansetron 4 Mg/2 Ml Sdv) 4 mg IV Q6H PRN PRN Reason: Nausea/Vomiting Ondansetron HCl (Ondansetron 4 Mg Tab.Dis) 4 mg PO Q6H PRN PRN Reason: Nausea able to take PO Oxycodone HCl (Oxycodone 5 Mg Tab) 5 mg PO Q4H PRN PRN Reason: Pain (moderate 4-6) Last Admin: 01/15/21 15:32 Dose: 5 mg Documented by: Pantoprazole Sodium (Pantoprazole 40 Mg Tab.Cr) 40 mg PO ACBREAKFAST [facility] Last Admin: 01/18/21 07:16 Dose: 40 mg Documented by: Senna/Docusate Sodium (Docusate Sodium/Sennosides 50-8.6 Mg Tab) 1 tab PO BID PRN PRN Reason: Constipation Sodium Chloride (Sodium Chloride 0.9% 10 Ml Syringe) 10 ml FLUSH ASDIRECTED PRN PRN Reason: Keep Vein Open Last Admin: 01/13/21 09:17 Dose: 10 ml Documented by: Trazodone HCl (Trazodone 50 Mg Tab) 50 mg PO BEDTIME PRN PRN Reason: Sleep Last Admin: 01/14/21 19:32 Dose: 50 mg Documented by: Discontinued Medications Dexamethasone (Dexamethasone 4 Mg/Ml Sdv) 6 mg IVPUSH ONETIME ONE Stop: 01/12/21 20:50 Last Admin: 01/12/21 21:11 Dose: 6 mg Documented by: Hydrochlorothiazide (Hydrochlorothiazide 12.5 Mg Cap) 12.5 mg PO DAILY [facility] Last Admin: 01/13/21 10:40 Dose: Not Given Documented by: Sodium Chloride (Normal Saline) 1,000 mls @ 150 mls/hr IV ASDIRECTED [facility] Last Admin: 01/12/21 20:23 Dose: 150 mls/hr Documented by: Remdesivir 200 mg/ Sodium (Chloride) 250 mls @ 250 mls/hr IV ONETIME ONE Stop: 01/13/21 16:29 Last Admin: 01/13/21 15:52 Dose: 250 mls/hr Documented by: Remdesivir 100 mg/ Sodium (Chloride) 100 mls @ 100 mls/hr IV Q24H [facility] Stop: 01/17/21 14:59 Last Admin: 01/17/21 14:46 Dose: 100 mls/hr Documented by: Lisinopril (Lisinopril 10 Mg Tab) 10 mg PO DAILY [facility] Last Admin: 01/13/21 10:11 Dose: 10 mg Documented by: Nicotine (Nicotine 14 Mg/24 Hr Patch) 14 mg TRDERM DAILY [facility] Last Admin: 01/17/21 11:05 Dose: Not Given Documented by: Sodium Chloride (Sodium Chloride 0.9% 10 Ml Syringe) 10 ml FLUSH ASDIRECTED PRN PRN Reason: Keep Vein Open Last Admin: 01/13/21 09:18 Dose: 10 ml Documented by: - Exam Quality Assessment: Supplemental Oxygen, DVT Prophylaxis General: Alert, Oriented, Cooperative, Mild Distress Lungs: Clear to Auscultation, Normal Respiratory Effort, Decreased Breath Sounds. No: Crackles, Rales, Rhonchi, Wheezing Cardiovascular: Regular Rate, Regular Rhythm, No Murmurs GI/Abdominal Exam: Soft, Non-Tender, No Organomegaly, No Distention Extremities: Non-Tender, No Pedal Edema - Patient Data Lab Results Last 24 hrs: Laboratory Results - last 24 hr 01/18/21 01/18/21 01/18/21 Range/Units 05:40 05:40 05:40 WBC 5.7 (4.5-11.0) K/uL RBC 5.01 (3.30-5.50) M/uL Hgb 15.0 (12.0-15.0) g/dL Hct 43.9 (36.0-48.0) % MCV 88 (80-98) fL MCH 30 (27-31) pg MCHC 34 (32-36) % Plt Count 433 H (150-400) K/uL Add Manual Diff Yes Neutrophils % (Manual) 84 H (36-66) % Lymphocytes % (Manual) 11 L (24-44) % Monocytes % (Manual) 4 (2-6) % Basophils % (Manual) 1 (0-1) % Atypical Lymphocytes Few D-Dimer, Quantitative 779.76 H (0.0-500.0) ng/mL Sodium 138 L (140-148) mmol/L Potassium 4.5 (3.6-5.2) mmol/L Chloride 99 L (100-108) mmol/L Carbon Dioxide 30 (21-32) mmol/L Anion Gap 13.5 (5.0-14.0) mmol/L BUN 38 H (7-18) mg/dL Creatinine 0.6 (0.6-1.0) mg/dL Est Cr Clr Drug Dosing 71.21 mL/min Estimated GFR (MDRD) > 60 (>60) Glucose 118 H (74-106) mg/dL Calcium 9.6 (8.5-10.1) mg/dL Total Bilirubin 0.5 (0.2-1.0) mg/dL AST 34 (15-37) U/L ALT 35 (12-78) U/L Alkaline Phosphatase 48 (46-116) U/L C-Reactive Protein (0.0-0.3) mg/dL Total Protein 6.6 (6.4-8.2) g/dL Albumin 2.7 L (3.4-5.0) g/dL Globulin 3.9 H (2.3-3.5) g/dL Albumin/Globulin Ratio 0.7 L (1.2-2.2) 01/18/21 Range/Units 05:40 WBC (4.5-11.0) K/uL RBC (3.30-5.50) M/uL Hgb (12.0-15.0) g/dL Hct (36.0-48.0) % MCV (80-98) fL MCH (27-31) pg MCHC (32-36) % Plt Count (150-400) K/uL Add Manual Diff Neutrophils % (Manual) (36-66) % Lymphocytes % (Manual) (24-44) % Monocytes % (Manual) (2-6) % Basophils % (Manual) (0-1) % Atypical Lymphocytes D-Dimer, Quantitative (0.0-500.0) ng/mL Sodium (140-148) mmol/L Potassium (3.6-5.2) mmol/L Chloride (100-108) mmol/L Carbon Dioxide (21-32) mmol/L Anion Gap (5.0-14.0) mmol/L BUN (7-18) mg/dL Creatinine (0.6-1.0) mg/dL Est Cr Clr Drug Dosing mL/min Estimated GFR (MDRD) (>60) Glucose (74-106) mg/dL Calcium (8.5-10.1) mg/dL Total Bilirubin (0.2-1.0) mg/dL AST (15-37) U/L ALT (12-78) U/L Alkaline Phosphatase (46-116) U/L C-Reactive Protein 0.36 H (0.0-0.3) mg/dL Total Protein (6.4-8.2) g/dL Albumin (3.4-5.0) g/dL Globulin (2.3-3.5) g/dL Albumin/Globulin Ratio (1.2-2.2) Result Diagrams: 01/18/21 05:40 01/18/21 05:40 Sepsis Event Note - Evaluation Sepsis Screening Result: No Definite Risk - Focused Exam Vital Signs: Vital Signs Temp Pulse Resp BP BP Pulse Ox Pulse Ox 01/18/21 14:22 94 L 01/18/21 14:20 87 L 01/18/21 13:19 97 01/18/21 11:10 98.1 F 74 18 102/69 96 01/18/21 08:19 113/84 01/18/21 07:31 94 L 01/18/21 07:13 97.7 F 73 18 113/84 95 01/18/21 04:00 36.2 F L 76 18 105/72 96 - Problem List Review Problem List Initiated/Reviewed/Updated: Yes - My Orders Last 24 Hours: My Active Orders 01/18/21 12:42 Evaluate for Home Oxygen [RT Evaluate for Home Oxygen] [RC] Click to Edit - Plan Plan:: ASSESSMENT AND PLAN - COVID-19 pneumonia-complicated by acute respiratory failure with hypoxia. Symptom onset 01/08. Moderate elevation of D-dimer and CRP with improvement since admission. Good improvement in oxygenation over the last 24 hours, now down to 2 L of oxygen per minute via nasal cannula. -Dexamethasone every 24 hours (day 7) -Continue remdesivir, plan for 5 days of treatment, completed yesterday -Enoxaparin every 24 hours -Symptomatic management of cough -Inhaler as needed -Isolation precautions COPD with emphysema-this has been stable. Still smoking. -Management as above Acute kidney injury-resolved -Encourage oral intake Hyponatremia-proved Paroxysmal atrial fibrillation-heart rate normal. -Continue aspirin, consider beta-sara if rate control needed. Tobacco dependence-encourage cessation -Nicotine patch Maintenance issues - -DVT prophylaxis-enoxaparin -GI prophylaxis-GI -Nutrition-regular Disposition -I anticipate discharge home after the hospital stay Primary care physician - Dr Will
[2021-01-18] MEDS: cefTRIAXone 1 GM in Sodium Chloride 0.9% 50 ML IV SCH (15:30)
[2021-01-18] MEDS: Dexamethasone 4 MG/ML SDV IVPUSH SCH (21:21)
[2021-01-18] MEDS: Melatonin 3 MG Tab PO PRN (21:22)
[2021-01-19] MEDS: Aspirin 81 MG Tab.EC PO SCH (08:50)
[2021-01-19] MEDS: Lactobacillus Rhamnosus GG (Probiotic) Cap PO SCH (08:50)
[2021-01-19] MEDS: Pantoprazole 40 MG Tab.CR PO SCH (08:50)
[2021-01-19] MEDS: Cholecalciferol (Vitamin D3) 25 MCG Tab PO SCH (08:51)
[2021-01-19] MEDS: Nicotine 21 MG/24 Hr Patch TRDERM SCH (08:51)
[2021-01-19] MEDS: Lisinopril 10 MG Tab PO SCH (08:51)
[2021-01-19] MEDS: Hydrochlorothiazide 12.5 MG Cap PO SCH (08:52)
--- NOTE | 2021-01-19 11:19 | PCM.DCSUM1 ---
Discharge Summary - Hospital Course Brief History: Ms. Julian is a 60-year-old woman who was admitted through the emergency department with weakness, shortness of breath, hypoxia, secondary to COVID-19 and underlying pneumonia. - Discharge Data Discharge Date: 01/19/21 Discharge Disposition: Home, Self-Care 01 Condition: Fair - Referral to Home Health Primary Care Physician: Karoline Will DO - Discharge Diagnosis/Problem(s) (1) Pneumonia due to COVID-19 virus SNOMED Code(s): 539287084105195387 ICD Code: U07.1 - COVID-19; J12.82 - PNEUMONIA DUE TO CORONAVIRUS DISEASE 2018 Status: Acute Priority: High Current Visit: Yes (2) Severe dehydration SNOMED Code(s): 192096275 ICD Code: E86.0 - DEHYDRATION Status: Acute Priority: High Current Visit: Yes (3) Acute respiratory failure with hypoxia SNOMED Code(s): 57951778, 665610135 ICD Code: J96.01 - ACUTE RESPIRATORY FAILURE WITH HYPOXIA Status: Acute Current Visit: Yes (4) Tobacco dependence SNOMED Code(s): 52065930 ICD Code: F17.200 - NICOTINE DEPENDENCE, UNSPECIFIED, UNCOMPLICATED Status: Chronic Current Visit: Yes (5) UTI (urinary tract infection) SNOMED Code(s): 21527480 ICD Code: N39.0 - URINARY TRACT INFECTION, SITE NOT SPECIFIED Status: Acute Current Visit: Yes - Patient Summary/Data Consults: Consultations 01/17/21 13:11 PT Evaluation and Treatment [CONS] Routine Please Evaluate and Treat. PT Reason for Consult: Strengthening Pending Discharge: Yes Discharge Disposition: Home Special Instructions: covid + This query below is only for informational purposes and is not editable. Admission Diagnosis/Problem: Pneumonia Hospital Course: Ms. Julian presented to the emergency room with progressive weakness, dizziness, shortness of breath and cough. She also had an episode of falling over backwards in the setting of lightheadedness. Symptoms started on Friday, 4 days before presentation. They have progressed since that time. She reports constant headache, mild sore throat, occasionally productive cough, weakness, anorexia and fatigue. She has not had any chest pain, vomiting or diarrhea. No obvious sick contacts. No fevers. Symptoms have been steadily getting worse. She has not had her Covid vaccination. Work-up in the emergency room revealed evidence for Covid pneumonia with acute respiratory failure and hypoxia. She has hyponatremia, acute kidney injury and prerenal azotemia. She did receive some IV fluids and steroids. She is requiring 7 L of supplemental oxygen. She will be admitted for management of Covid pneumonia and respiratory failure. On admission she was started on remdesivir, IV Decadron, and enoxaparin. She did require increased levels of supplemental oxygen, but then stabilized. Renal insufficiency and hyponatremia resolved after a few days of hospital stay. She was found to have urinary tract infection and was treated with ceftriaxone, she had completed a course of antibiotic therapy prior to discharge. Over the last few days has improved significantly and is currently on 2 L of oxygen via nasal cannula. She qualified for home oxygen with an oxygen saturation of 87% on room air and while at rest. Activity will be as tolerated and she will resume her usual diet. Home oxygen will be arranged for her as well as a follow-up appointment with her primary care provider within 1 week. - Patient Instructions Diet: Usual Diet as Tolerated Activity: As Tolerated Other/Special Instructions: Please schedule follow-up appointment with primary care provider within 1 week. Please arrange for home oxygen 2 L/min via nasal cannula. - Discharge Plan *PRESCRIPTION DRUG MONITORING PROGRAM REVIEWED*: Not Applicable *COPY OF PRESCRIPTION DRUG MONITORING REPORT IN PATIENT LASHAUN: Not Applicable Home Medications: Home Meds Albuterol Sulfate [Albuterol Sulfate Hfa] 1 puff INH Q6HR PRN 01/12/21 [History] Lisinopril/Hydrochlorothiazide [Lisinopril-Hctz 10-12.5 mg Tab] 1 tab PO DAILY 01/12/21 [History] Aspirin [Halfprin] 81 mg PO DAILY 01/13/21 [History] Cholecalciferol (Vitamin D3) [Vitamin D3] 2,000 unit PO DAILY 01/13/21 [History] Patient Handouts: Steps to Quit Smoking, [id number], Health Risks of Smoking, COVID-19 Referrals: Karoline Will DO [Primary Care Provider] - 02/02/21 1:40 pm (Please arrive 15 minutes early to register for your appointment.) - Discharge Summary/Plan Comment DC Time >30 min.: No Total # of Minutes for Discharge Time: 20 - Patient Data Vitals - Most Recent: Last Vital Signs Temp 97.2 F 01/19/21 08:54 Pulse 80 01/19/21 08:54 Resp 18 01/19/21 08:54 BP 103/73 01/19/21 08:54 Pulse Ox 92 L 01/19/21 08:54 Weight - Most Recent: 101 lb I&O - Last 24 hours: Intake & Output 01/18/21 01/19/21 01/19/21 22:59 06:59 14:59 Intake Total 500 Output Total 500 Balance -500 500 Med Orders - Current: Current Medications Acetaminophen (Acetaminophen 325 Mg Tab) 650 mg PO Q4H PRN PRN Reason: Pain (Mild 1-3)/fever Last Admin: 01/18/21 19:51 Dose: 650 mg Documented by: Albuterol (Albuterol 8 Gm Inhaler) 0 gm INH Q4H PRN PRN Reason: Wheezing Last Admin: 01/13/21 10:12 Dose: 2 puff Documented by: Aspirin (Aspirin 81 Mg Tab.Ec) 81 mg PO DAILY [facility] Last Admin: 01/19/21 08:50 Dose: 81 mg Documented by: Benzonatate (Benzonatate 100 Mg Cap) 100 mg PO TID PRN PRN Reason: Cough Last Admin: 01/14/21 22:30 Dose: 100 mg Documented by: Cholecalciferol (Cholecalciferol (Vitamin D3) 25 Mcg Tab) 50 mcg PO DAILY [facility] Last Admin: 01/19/21 08:51 Dose: 50 mcg Documented by: Dexamethasone (Dexamethasone 4 Mg/Ml Sdv) 6 mg IVPUSH Q24H [facility] Last Admin: 01/18/21 21:21 Dose: 6 mg Documented by: Enoxaparin Sodium (Enoxaparin 40 Mg/0.4 Ml Syringe) 40 mg SUBCUT Q24H [facility] Last Admin: 01/18/21 14:21 Dose: 40 mg Documented by: Guaifenesin/Dextromethorphan (Guaifenesin/Dextromethorphan 100-10 Mg/5 Ml Soln 10 Ml Cup) 10 ml PO Q4H PRN PRN Reason: Cough Last Admin: 01/14/21 19:33 Dose: 10 ml Documented by: Hydrochlorothiazide (Hydrochlorothiazide 12.5 Mg Cap) 12.5 mg PO DAILY [facility] Last Admin: 01/19/21 08:52 Dose: 12.5 mg Documented by: Ceftriaxone Sodium 1 gm/ (Sodium Chloride) 50 mls @ 100 mls/hr IV Q24H [facility] Last Admin: 01/18/21 15:30 Dose: 100 mls/hr Documented by: Lactobacillus Rhamnosus (Lactobacillus Rhamnosus Gg (Probiotic) Cap) 1 cap PO BID [facility] Last Admin: 01/19/21 08:50 Dose: 1 cap Documented by: Lisinopril (Lisinopril 10 Mg Tab) 10 mg PO DAILY [facility] Last Admin: 01/19/21 08:51 Dose: 10 mg Documented by: Lorazepam (Lorazepam 2 Mg/Ml Sdv) 0.5 mg IVPUSH Q4H PRN PRN Reason: Nausea/Vomiting Magnesium Hydroxide (Magnesium Hydroxide 400 Mg/5 Ml Susp 30 Ml Cup) 30 ml PO Q12H PRN PRN Reason: Constipation Melatonin (Melatonin 3 Mg Tab) 9 mg PO BEDTIME PRN PRN Reason: Sleep Last Admin: 01/18/21 21:22 Dose: 9 mg Documented by: Nicotine (Nicotine 21 Mg/24 Hr Patch) 21 mg TRDERM DAILY [facility] Last Admin: 01/19/21 08:51 Dose: 21 mg Documented by: Nicotine Polacrilex (Nicotine Polacrilex 2 Mg Gum) 2 mg CHEW Q1H PRN PRN Reason: Other Ondansetron HCl (Ondansetron 4 Mg/2 Ml Sdv) 4 mg IV Q6H PRN PRN Reason: Nausea/Vomiting Ondansetron HCl (Ondansetron 4 Mg Tab.Dis) 4 mg PO Q6H PRN PRN Reason: Nausea able to take PO Oxycodone HCl (Oxycodone 5 Mg Tab) 5 mg PO Q4H PRN PRN Reason: Pain (moderate 4-6) Last Admin: 01/15/21 15:32 Dose: 5 mg Documented by: Pantoprazole Sodium (Pantoprazole 40 Mg Tab.Cr) 40 mg PO ACBREAKFAST [facility] Last Admin: 01/19/21 08:50 Dose: 40 mg Documented by: Senna/Docusate Sodium (Docusate Sodium/Sennosides 50-8.6 Mg Tab) 1 tab PO BID PRN PRN Reason: Constipation Sodium Chloride (Sodium Chloride 0.9% 10 Ml Syringe) 10 ml FLUSH ASDIRECTED PRN PRN Reason: Keep Vein Open Last Admin: 01/13/21 09:17 Dose: 10 ml Documented by: Trazodone HCl (Trazodone 50 Mg Tab) 50 mg PO BEDTIME PRN PRN Reason: Sleep Last Admin: 01/14/21 19:32 Dose: 50 mg Documented by: Discontinued Medications Dexamethasone (Dexamethasone 4 Mg/Ml Sdv) 6 mg IVPUSH ONETIME ONE Stop: 01/12/21 20:50 Last Admin: 01/12/21 21:11 Dose: 6 mg Documented by: Hydrochlorothiazide (Hydrochlorothiazide 12.5 Mg Cap) 12.5 mg PO DAILY [facility] Last Admin: 01/13/21 10:40 Dose: Not Given Documented by: Sodium Chloride (Normal Saline) 1,000 mls @ 150 mls/hr IV ASDIRECTED [facility] Last Admin: 01/12/21 20:23 Dose: 150 mls/hr Documented by: Remdesivir 200 mg/ Sodium (Chloride) 250 mls @ 250 mls/hr IV ONETIME ONE Stop: 01/13/21 16:29 Last Admin: 01/13/21 15:52 Dose: 250 mls/hr Documented by: Remdesivir 100 mg/ Sodium (Chloride) 100 mls @ 100 mls/hr IV Q24H [facility] Stop: 01/17/21 14:59 Last Admin: 01/17/21 14:46 Dose: 100 mls/hr Documented by: Lisinopril (Lisinopril 10 Mg Tab) 10 mg PO DAILY [facility] Last Admin: 01/13/21 10:11 Dose: 10 mg Documented by: Nicotine (Nicotine 14 Mg/24 Hr Patch) 14 mg TRDERM DAILY [facility] Last Admin: 01/17/21 11:05 Dose: Not Given Documented by: Sodium Chloride (Sodium Chloride 0.9% 10 Ml Syringe) 10 ml FLUSH ASDIRECTED PRN PRN Reason: Keep Vein Open Last Admin: 01/13/21 09:18 Dose: 10 ml Documented by: - Exam General: Reports: Alert, Oriented, Cooperative, Mild Distress Lungs: Reports: Clear to Auscultation, Normal Respiratory Effort, Decreased Breath Sounds. Denies: Crackles, Rales, Rhonchi, Wheezing Cardiovascular: Reports: Regular Rate, Regular Rhythm, No Murmurs GI/Abdominal Exam: Soft, Non-Tender, No Organomegaly, No Distention Extremities: Non-Tender, No Pedal Edema
== END 2021-01-19 11:55 | disposition home or self-care (01) | DRG 177 ==
LOC: JP.ED 17:37 → JP.2SS 01-13 13:35
PROVIDERS: ADMIT Internal Medicine; ATTEND Hospitalist
PROC: 8E0ZXY6 Isolation (ICD-10-PCS; principal; 2021-01-13)
PROC: 3E0333Z Introduction of Anti-inflammatory into Peripheral Vein, Percutaneous Approach (ICD-10-PCS; 2021-01-13)
PROC: XW033E5 Introduction of Remdesivir Anti-infective into Peripheral Vein, Percutaneous Approach, New Technology Group 5 (ICD-10-PCS; 2021-01-13)
DX: U07.1 COVID-19 (principal); J12.82 Pneumonia due to coronavirus disease 2019; J96.01 Acute respiratory failure with hypoxia; E87.1 Hypo-osmolality and hyponatremia; N17.9 Acute kidney failure, unspecified; N18.4 Chronic kidney disease, stage 4 (severe); N39.0 Urinary tract infection, site not specified; E86.0 Dehydration; F17.200 Nicotine dependence, unspecified, uncomplicated; J43.1 Panlobular emphysema; I48.0 Paroxysmal atrial fibrillation; I12.9 Hypertensive chronic kidney disease with stage 1 through stage 4 chronic kidney disease, or unspecified chronic kidney disease; B96.20 Unspecified Escherichia coli [E. coli] as the cause of diseases classified elsewhere; Z79.82 Long term (current) use of aspirin; Z79.899 Other long term (current) drug therapy; Z90.710 Acquired absence of both cervix and uterus; Z90.49 Acquired absence of other specified parts of digestive tract
CPT/HCPCS: 0241U; 36415; 71250; 80048; 80053; 81001; 83605; 83615; 85025; 85027; 85379; 86140; 87086; 87088; 87186; 94640; 94762; 96374; 97110-GP; 97161-GP; 97530-GP; 97535-GP; 99223; 99232; 99238; 99285-25; A9270-GY; J0696; J1100; J1650; J7030; J7050

== ENCOUNTER 2021-06-01 08:50 | Day surgery (SDC) | payer OTHER ==
[~2021-06-01 08:50] MED LIST: Dexamethasone 4 MG/ML SDV ONE; Glycopyrrolate 0.2 MG/ML 5 ML MDV ONE; Neostigmine Methylsulfate 1 MG/ML 5 ML Syringe ONE; Ondansetron 4 MG/2 ML SDV ONE; Propofol 200 MG/20 ML SDV ONE; Rocuronium 50 MG/5 ML Vial ONE; Succinylcholine 200 MG/10 ML MDV ONE; fentaNYL 250 MCG/5 ML SDV ONE
[2021-06-01] MEDS ORDERED: ceFAZolin 2 GM in Premix Bag 1 BAG IV ONE (09:15)
[2021-06-01] MEDS ORDERED: Sodium Chloride 0.9% 1,000 ML IV SCH (09:15)
[2021-06-01] MEDS ORDERED: metroNIDAZOLE/Normal Saline 500 MG in Premix Bag 1 BAG IV ONE (09:15)
[2021-06-01] MEDS ORDERED: Ropivacaine 22 ML, dexAMETHasone 8 MG, EPINEPHrine 0.4 MG, Sodium Chloride 0.9% 55.6 ML NERVRT SCH ×4 (10:15)
[2021-06-01] MEDS: Lidocaine 1% with EPINEPHrine 1:100,000 50 ML MDV ONE ×2 (11:56→12:30)
[2021-06-01] MEDS: Bupivacaine 0.5% 50 ML MDV ONE ×2 (11:56→12:30)
[2021-06-01] MEDS ORDERED: Ketorolac 30 MG/ML SDV ONE (12:11)
[2021-06-01] MEDS ORDERED: fentaNYL 100 MCG/2 ML SDV ONE (12:31)
[2021-06-01] MEDS ORDERED: Ondansetron 4 MG/2 ML SDV IVPUSH PRN (12:31)
[2021-06-01] MEDS ORDERED: fentaNYL 100 MCG/2 ML SDV IVPUSH PRN ×3 (12:31)
[2021-06-01] MEDS ORDERED: Zolpidem 5 MG Tab PO PRN (12:31)
[2021-06-01] MEDS ORDERED: Benzocaine/Cetylpyridinium/Menthol Lozenge MUCMEM PRN (12:31)
[2021-06-01] MEDS ORDERED: Docusate Sodium 100 MG Cap PO PRN (12:31)
[2021-06-01] MEDS ORDERED: hydrOXYzine HCL 100 MG/2 ML SDV IM PRN (12:31)
[2021-06-01] MEDS ORDERED: Acetaminophen/HYDROcodone 325-5 MG Tab PO PRN ×2 (12:31→13:27)
[2021-06-01] MEDS ORDERED: Lactated Ringers 1,000 ML ONE (12:36)
[2021-06-01] MEDS ORDERED: Scopolamine 1.5 MG Transdermal Patch TOP SCH (13:00)
[2021-06-02] MEDS ORDERED: SCOPOLAMINE PATCH CHECK TOP SCH (09:00)
== END 2021-06-01 14:40 | disposition home or self-care (01) ==
LOC: JP.SDS 08:50
PROVIDERS: ATTEND Surgery
DX: K43.9 Ventral hernia without obstruction or gangrene (principal); I10 Essential (primary) hypertension; E78.2 Mixed hyperlipidemia; F17.210 Nicotine dependence, cigarettes, uncomplicated; Z90.49 Acquired absence of other specified parts of digestive tract; Z90.711 Acquired absence of uterus with remaining cervical stump; Z20.822 Contact with and (suspected) exposure to COVID-19
CPT/HCPCS: A9270-GY; C1713; C1781; J0171; J0330; J0690; J1100; J1885; J2405; J2704; J2710; J2795; J3010; J3490; J7030; J7120

== ENCOUNTER 2022-12-30 09:52 | Inpatient (IN) | payer OTHER ==
[~2022-12-30 09:52] MED LIST changes: -Dexamethasone 4 MG/ML SDV ONE; -Glycopyrrolate 0.2 MG/ML 5 ML MDV ONE; +Lidocaine 1% 20 ML MDV INJECT ONE; -Neostigmine Methylsulfate 1 MG/ML 5 ML Syringe ONE; -Ondansetron 4 MG/2 ML SDV ONE; -Propofol 200 MG/20 ML SDV ONE; -Rocuronium 50 MG/5 ML Vial ONE; -Succinylcholine 200 MG/10 ML MDV ONE; -fentaNYL 250 MCG/5 ML SDV ONE
[2022-12-30 10:19] LABS: HEMATOCRIT 51.2 % (34.3-46.0); HEMOGLOBIN 17.1 g/dL (11.2-15.5); MEAN CORPUSCULAR HEMOGLOBIN 30.9 pg (31.6-35.5); MEAN CORPUSCULAR HGB CONC 33.4 g/dL (31.6-35.5); MEAN CORPUSCULAR VOLUME 92.4 fL (81.4-99.0); RED BLOOD CELL COUNT 5.54 M/uL (3.77-5.24); WHITE BLOOD CELL COUNT,WBC 8.8 K/uL (3.2-11.0)
[2022-12-30 10:39] LABS: INR 1.1; PROTHROMBIN TIME 11.5 sec (9.2-10.6)
[2022-12-30] MEDS ORDERED: Sodium Chloride 0.9% 1,000 ML IV SCH (11:00)
[2022-12-30] MEDS ORDERED: fentaNYL 100 MCG/2 ML SDV IVPUSH ONE (11:00)
[2022-12-30] MEDS ORDERED: Flumazenil 0.1 MG/ML 5 ML MDV IVPUSH PRN (11:00)
[2022-12-30] MEDS ORDERED: Midazolam 1 MG/ML 5 ML SDV IVPUSH ONE ×2 (11:00→11:30)
[2022-12-30] MEDS ORDERED: Naloxone 0.4 MG/ML SDV IVPUSH PRN (11:00)
[2022-12-30] MEDS ORDERED: Acetaminophen 325 MG Tab PO PRN (12:53)
[2022-12-30] MEDS: Sodium Chloride 0.9% 1,000 ML IV SCH ×2 (14:45→22:45)
[2022-12-30] MEDS ORDERED: Albuterol/Ipratropium 3.0-0.5 MG/3 ML Neb Soln NEB PRN (14:46)
[2022-12-30] MEDS ORDERED: Polyethylene Glycol 3350 Powder 17 GM Packet PO PRN (14:46)
[2022-12-30] MEDS ORDERED: Albuterol 6.7 GM Inhaler INH PRN (14:46)
[2022-12-30] MEDS ORDERED: Sodium Chloride 0.9% 10 ML Syringe FLUSH PRN (14:46)
[2022-12-30] MEDS ORDERED: Ondansetron 4 MG/2 ML SDV IV PRN (14:46)
[2022-12-30 15:27] LABS: CALCIUM 8.7 mg/dL (8.5-10.1); CREATININE 0.9 mg/dL (0.6-1.0); EST CRCL DRUG DOSING (CG) 44.49 mL/min; POTASSIUM,K 3.8 mmol/L (3.6-5.2)
[2022-12-30 15:28] LABS: ANION GAP 8.8 mmol/L (5.0-14.0)
[2022-12-30] MEDS: Enoxaparin 40 MG/0.4 ML Syringe SUBCUT SCH (16:53)
[2022-12-30] MEDS: Acetaminophen 325 MG Tab PO PRN ×2 (17:31→22:29)
[2022-12-31] MEDS: Sodium Chloride 0.9% 1,000 ML IV SCH (06:31)
[2022-12-31] MEDS: Acetaminophen 325 MG Tab PO PRN ×2 (08:25→21:58)
[2022-12-31] MEDS ORDERED: Lisinopril 10 MG Tab PO SCH (09:00)
[2022-12-31] MEDS ORDERED: Aspirin 81 MG Tab.EC PO SCH (09:00)
[2022-12-31] MEDS ORDERED: Hydrochlorothiazide 12.5 MG Cap PO SCH (09:00)
[2022-12-31] MEDS: HCTZ PO SCH (09:56)
[2022-12-31] MEDS: LISINOPRIL PO SCH (09:56)
[2022-12-31] MEDS: EZETIMIBE 10 MG PO SCH (09:57)
[2022-12-31] MEDS: ASPIRIN 81 MG PO SCH (09:57)
[2022-12-31] MEDS: oxyCODONE 5 MG Tab PO PRN (11:31)
[2022-12-31] MEDS: Enoxaparin 40 MG/0.4 ML Syringe SUBCUT SCH (17:28)
[2023-01-01] MEDS: LISINOPRIL PO SCH (08:32)
[2023-01-01] MEDS: ASPIRIN 81 MG PO SCH (08:32)
[2023-01-01] MEDS: EZETIMIBE 10 MG PO SCH (08:32)
[2023-01-01] MEDS: HCTZ PO SCH (08:32)
[2023-01-01] MEDS ORDERED: Polyethylene Glycol 3350 Powder 17 GM Packet PO ONE (14:45)
[2023-01-01] MEDS: Docusate Sodium 100 MG Cap PO SCH ×2 (14:52→21:56)
[2023-01-01] MEDS: Enoxaparin 40 MG/0.4 ML Syringe SUBCUT SCH (17:13)
[2023-01-01] MEDS ORDERED: Melatonin 3 MG Tab PO PRN (20:23)
[2023-01-01] MEDS: oxyCODONE 5 MG Tab PO PRN (21:53)
[2023-01-02] MEDS: LISINOPRIL PO SCH (08:00)
[2023-01-02] MEDS: HCTZ PO SCH (08:00)
[2023-01-02] MEDS: Docusate Sodium 100 MG Cap PO SCH (08:00)
[2023-01-02] MEDS ORDERED: Aspirin 81 MG Tab.Chew PO SCH (09:00)
== END 2023-01-02 04:10 | disposition home or self-care (01) | DRG 201 ==
LOC: JP.ACU 09:52 → JP.ICU 12:00 → OBSVTOIN 12-31 12:00
PROVIDERS: ADMIT Hospitalist; ATTEND Hospitalist
PROC: 0WWB30Z Revision of Drainage Device in Left Pleural Cavity, Percutaneous Approach (ICD-10-PCS; principal; 2022-12-31)
DX: J95.811 Postprocedural pneumothorax (principal); T85.848A Pain due to other internal prosthetic devices, implants and grafts, initial encounter; R91.1 Solitary pulmonary nodule; I10 Essential (primary) hypertension; J98.2 Interstitial emphysema; F17.210 Nicotine dependence, cigarettes, uncomplicated; R09.02 Hypoxemia; E78.00 Pure hypercholesterolemia, unspecified; Z79.2 Long term (current) use of antibiotics; Z79.899 Other long term (current) drug therapy; Z79.82 Long term (current) use of aspirin; Z90.710 Acquired absence of both cervix and uterus; Z90.722 Acquired absence of ovaries, bilateral; Z90.79 Acquired absence of other genital organ(s); Z86.16 Personal history of COVID-19; Z87.81 Personal history of (healed) traumatic fracture; Z98.890 Other specified postprocedural states
CPT/HCPCS: 32400; 32400-LT; 32557; 32557-26; 36415; 71045; 71045-26; 77012; 77012-26; 80048; 85027; 85610; 85730; 88305; 88341; 88342; 94640; 96360; 96361; 96372; 99222; 99232; 99238; A9270-GY; C1729; G0378; J1650; J2250; J3010; J7030; J7620

== ENCOUNTER 2023-04-10 16:20 | Emergency (ER) | payer OTHER | END 2023-04-10 18:07 | disposition home or self-care (01) | LOC: JP.ED 16:20 | DX: R06.02 Shortness of breath (principal); I10 Essential (primary) hypertension; Z79.82 Long term (current) use of aspirin; Z79.899 Other long term (current) drug therapy; Z86.16 Personal history of COVID-19 | CPT/HCPCS: 99283; 99284 ==

== ENCOUNTER 2023-04-11 13:00 | Emergency (ER) | payer OTHER ==
[2023-04-11] MEDS ORDERED: Albuterol/Ipratropium 3.0-0.5 MG/3 ML Neb Soln NEB ONE ×2 (13:47→14:53)
[2023-04-11] MEDS ORDERED: Acetaminophen 325 MG Tab PO ONE (13:48)
[2023-04-11 14:06] LABS: EOSINOPHILS PERCENT AUTO 0.1 % (0.0-5.4); HEMATOCRIT 45.5 % (34.3-46.0); HEMOGLOBIN 15.4 g/dL (11.2-15.5); IMMATURE GRAN ABSOLUTE AUTO 0.06 K/uL (0.00-0.23); IMMATURE GRAN PERCENT AUTO 0.6 % (0.0-0.7); LYMPHOCYTES PERCENT AUTO 4.8 % (11.4-47.7); MEAN CORPUSCULAR HEMOGLOBIN 31.7 pg (31.6-35.5); MEAN CORPUSCULAR HGB CONC 33.8 g/dL (31.6-35.5); MEAN CORPUSCULAR VOLUME 93.6 fL (81.4-99.0); MONOCYTES ABSOLUTE AUTO 0.13 K/uL (0.20-0.90); MONOCYTES PERCENT AUTO 1.2 % (3.3-12.6); NEUTROPHILS ABSOLUTE AUTO 9.71 K/uL (1.0-7.6); NEUTROPHILS PERCENT AUTO 93.3 % (40.0-78.1); PLATELET COUNT,PLT 214 K/uL (130-375); RED BLOOD CELL COUNT 4.86 M/uL (3.77-5.24); WHITE BLOOD CELL COUNT,WBC 10.4 K/uL (3.2-11.0)
[2023-04-11 14:07] LABS: EOSINOPHILS ABSOLUTE AUTO 0.01 K/uL (0.00-0.40)
[2023-04-11 14:25] LABS: PROTHROMBIN TIME 10.3 sec (9.2-10.6); PTT,PARTIAL THROMBOPLSTIN TIME 24.4 sec (21.8-27.3)
[2023-04-11 14:28] LABS: ANION GAP 10.9 mmol/L (5.0-14.0); CALCIUM 9.2 mg/dL (8.5-10.1); CREATININE 0.8 mg/dL (0.6-1.0); EST CRCL DRUG DOSING (CG) 51.7 mL/min; MAGNESIUM 2.1 mg/dL (1.8-2.4); POTASSIUM,K 3.9 mmol/L (3.6-5.2); TROPONIN I HIGH SENSITIVITY 21.6 pg/mL (<=60.3)
[2023-04-12] MEDS ORDERED: predniSONE 20 MG Tab PO ONE (14:53)
== END 2023-04-11 15:59 | disposition home or self-care (01) ==
LOC: JP.ED 13:00
DX: J44.1 Chronic obstructive pulmonary disease with (acute) exacerbation (principal); F17.210 Nicotine dependence, cigarettes, uncomplicated; I10 Essential (primary) hypertension; E78.00 Pure hypercholesterolemia, unspecified; Z86.16 Personal history of COVID-19; Z90.49 Acquired absence of other specified parts of digestive tract; Z90.710 Acquired absence of both cervix and uterus; Z79.82 Long term (current) use of aspirin; Z79.899 Other long term (current) drug therapy
CPT/HCPCS: 36415; 71046; 80048; 83735; 84484; 85025; 85610; 85730; 93005; 94640; 99285; A9270; J7512; J7620

== ENCOUNTER 2023-04-15 14:29 | Inpatient (IN) | payer OTHER ==
[2023-04-15] MEDS ORDERED: Azithromycin 500 MG in Sodium Chloride 0.9% 250 ML IV ONE (15:09)
[2023-04-15] MEDS ORDERED: Doxycycline 100 MG Vial IV SCH (15:15)
[2023-04-15 15:21] LABS: APPEARANCE,URINE SLIGHTLY CLOUDY (CLEAR); BILIRUBIN,URINE NEGATIVE (NEGATIVE); COLOR,URINE YELLOW (YELLOW); GLUCOSE,URINE NEGATIVE (NEGATIVE); KETONES,URINE TRACE mg/dL (NEGATIVE); LEUKOCYTE ESTERASE,URINE NEGATIVE (NEGATIVE); NITRITE,URINE NEGATIVE (NEGATIVE); OCCULT BLOOD,URINE MODERATE (NEGATIVE); PROTEIN,URINE 100 mg/dL (NEGATIVE)
[2023-04-15 15:27] LABS: AMORPHOUS SEDIMENT,URINE NOT SEEN; BACTERIA,URINE FEW; EPITHELIAL CELLS,URINE FEW; MUCUS,URINE NOT SEEN; WBC,URINE 0-5 (0-5)
[2023-04-15] MEDS: Albuterol/Ipratropium 3.0-0.5 MG/3 ML Neb Soln NEB ONE (15:34)
[2023-04-15 15:36] LABS: HEMATOCRIT 41.1 % (34.3-46.0); HEMOGLOBIN 14.2 g/dL (11.2-15.5); MEAN CORPUSCULAR HEMOGLOBIN 31.3 pg (31.6-35.5); MEAN CORPUSCULAR HGB CONC 34.5 g/dL (31.6-35.5); MEAN CORPUSCULAR VOLUME 90.5 fL (81.4-99.0); PLATELET COUNT,PLT 67 K/uL (130-375); RED BLOOD CELL COUNT 4.54 M/uL (3.77-5.24); WHITE BLOOD CELL COUNT,WBC 1.3 K/uL (3.2-11.0)
[2023-04-15] MEDS: Sodium Chloride 0.9% 1,000 ML IV SCH (15:36)
[2023-04-15 15:37] LABS: CORONAVIRUS COVID-19 NAA NEGATIVE (NEGATIVE); INFLUENZA A NAA NEGATIVE (NEGATIVE); INFLUENZA B NAA NEGATIVE (NEGATIVE); RESPIRATORY SYNCYTIAL VIR NAA NEGATIVE (NEGATIVE)
[2023-04-15] MEDS: Doxycycline 100 MG in Sodium Chloride 0.9% 100 ML IV SCH (15:38)
[2023-04-15] MEDS: methylPREDNISolone Sodium Succinate 125 MG/2 ML SDV IVPUSH ONE (15:41)
[2023-04-15] MEDS: Sodium Chloride 0.9% 10 ML Syringe FLUSH PRN (15:53)
[2023-04-15 15:57] LABS: A/G RATIO 0.8 (1.2-2.2); ALANINE AMINOTRANSFERASE,ALT 98 U/L (12-78); ALBUMIN 3.1 g/dL (3.4-5.0); ALKALINE PHOSPHATASE 97 U/L (46-116); ASPARTATE AMNIOTRANSFERASE,AST 71 U/L (15-37); BILIRUBIN TOTAL 1.1 mg/dL (0.2-1.0); BLOOD UREA NITROGEN,BUN 23 mg/dL (7-18); C-REACTIVE PROTEIN 9.37 mg/dL (<0.50); CALCIUM 8.8 mg/dL (8.5-10.1); CARBON DIOXIDE,CO2 31 mmol/L (21-32); CHLORIDE,CL 88 mmol/L (100-108); CREATININE 0.8 mg/dL (0.6-1.0); ESTIMATED GFR 83 mL/min (>60); GLUCOSE RANDOM 94 mg/dL (74-106); POTASSIUM,K 3.3 mmol/L (3.6-5.2); PROTEIN TOTAL,TP 7.2 g/dL (6.4-8.2); SODIUM,NA 127 mmol/L (140-148)
[2023-04-15 15:57] LABS: LYMPHOCYTES ABSOLUTE MAN 0.68 K/uL (0.8-3.3); LYMPHOCYTES PERCENT MAN 52 % (24-44); MONOCYTES ABSOLUTE MAN 0.03 K/uL (0.20-0.90); MONOCYTES PERCENT MAN 2 % (2-6); SEG NEUTROPHILS PERCENT MAN 46 % (36-66)
[2023-04-15 15:58] LABS: ATYPICAL LYMPHOCYTES FEW
[2023-04-15] MEDS: Azithromycin 500 MG in Sodium Chloride 0.9% 250 ML IV ONE (15:58)
[2023-04-15 16:00] LABS: ANION GAP 11.3 mmol/L (5.0-14.0)
[2023-04-15] MEDS ORDERED: Calcium Carbonate 500 MG Tab.Chew PO PRN (17:06)
[2023-04-15] MEDS ORDERED: Sodium Chloride 0.9% 1,000 ML IV SCH (17:59)
[2023-04-15] MEDS ORDERED: Benzonatate 100 MG Cap PO PRN (17:59)
[2023-04-15] MEDS: Levofloxacin/Dextrose 5%-Water 750 MG in Premix Bag 1 BAG IV SCH (18:09)
[2023-04-15] MEDS: Sodium Chloride 0.9% 1,500 ML IV ONE (19:19)
[2023-04-15] MEDS: Pantoprazole 40 MG Vial IV ONE (19:20)
[2023-04-15] MEDS: Potassium Chloride 10 MEQ in Premix Bag 1 BAG IV SCH (19:22)
[2023-04-15] MEDS: Cefepime 2 GM in Sodium Chloride 0.9% 50 ML IV SCH (19:23)
[2023-04-15] MEDS: Acetaminophen 325 MG Tab PO PRN (19:51)
[2023-04-15] MEDS: Metoprolol Tartrate 50 MG Tab PO SCH (20:40)
[2023-04-15] MEDS: methylPREDNISolone Sodium Succinate 125 MG/2 ML SDV IM ONE (20:54)
[2023-04-15] MEDS: Albuterol/Ipratropium 3.0-0.5 MG/3 ML Neb Soln NEB SCH (22:10)
[2023-04-15] MEDS: Lactobacillus Rhamnosus GG (Probiotic) Cap PO SCH (22:10)
[2023-04-16 05:29] LABS: HEMATOCRIT 32.5 % (34.3-46.0); HEMOGLOBIN 10.9 g/dL (11.2-15.5); MEAN CORPUSCULAR HEMOGLOBIN 31.1 pg (31.6-35.5); MEAN CORPUSCULAR HGB CONC 33.5 g/dL (31.6-35.5); MEAN CORPUSCULAR VOLUME 92.9 fL (81.4-99.0); PLATELET COUNT,PLT 46 K/uL (130-375)
[2023-04-16 05:46] LABS: CALCIUM 7.9 mg/dL (8.5-10.1); CREATININE 0.5 mg/dL (0.6-1.0); EST CRCL DRUG DOSING (CG) 76.84 mL/min; MAGNESIUM 1.5 mg/dL (1.8-2.4); POTASSIUM,K 3.7 mmol/L (3.6-5.2)
[2023-04-16 05:49] LABS: ANION GAP 10.7 mmol/L (5.0-14.0)
[2023-04-16 06:06] LABS: WHITE BLOOD CELL COUNT,WBC 0.9 K/uL (3.2-11.0)
[2023-04-16 06:08] LABS: ATYPICAL LYMPHOCYTES FEW; BAND ABSOLUTE MAN 0.03 K/uL; BAND PERCENT MAN 3 % (5-11); BASOPHILS ABSOLUTE MAN 0.01 K/uL (0.00-0.10); BASOPHILS PERCENT MAN 1 % (0-1); LYMPHOCYTES ABSOLUTE MAN 0.41 K/uL (0.8-3.3); LYMPHOCYTES PERCENT MAN 46 % (24-44); METAMYELOCYTE ABSOLUTE MAN 0.03 K/uL; METAMYELOCYTE PERCENT MAN 3 %; MONOCYTES ABSOLUTE MAN 0.02 K/uL (0.20-0.90); MONOCYTES PERCENT MAN 2 % (2-6); NEUTROPHILS ABSOLUTE MAN 0.41 K/uL (1.0-7.6); SEG NEUTROPHILS PERCENT MAN 45 % (36-66)
[2023-04-16] MEDS: Pantoprazole 40 MG Tab.CR PO SCH (07:33)
[2023-04-16] MEDS: predniSONE 20 MG Tab PO SCH (07:33)
[2023-04-16] MEDS: Magnesium Sulfate/Water 2 GM in Premix Bag 1 BAG IV SCH (08:41)
[2023-04-16] MEDS: Folic Acid 1 MG Tab PO SCH (08:41)
[2023-04-16] MEDS: Aspirin 81 MG Tab.EC PO SCH (08:41)
[2023-04-16] MEDS: Ezetimibe 10 MG Tab PO SCH (08:41)
[2023-04-16] MEDS: Sodium Chloride 0.9% 1,000 ML IV SCH (08:45)
[2023-04-16] MEDS: Albuterol/Ipratropium 3.0-0.5 MG/3 ML Neb Soln NEB SCH (11:05)
[2023-04-16] MEDS: Levofloxacin 250 MG Tab PO SCH (16:13)
[2023-04-16] MEDS: Ondansetron 4 MG/2 ML SDV IV PRN (19:12)
[2023-04-16] MEDS: Saliva Substitute Oral Spray 120 ML Bottle MUCMEM PRN (20:55)
[2023-04-17] MEDS: Ondansetron 4 MG Tab.DIS PO PRN (01:43)
[2023-04-17] MEDS: Magnesium Hydroxide 400 MG/5 ML Susp 30 ML Cup PO PRN (01:43)
[2023-04-17] MEDS: Morphine 2 MG/ML SYRINGE IVPUSH PRN (03:30)
[2023-04-17 05:03] LABS: HEMATOCRIT 35.3 % (34.3-46.0); HEMOGLOBIN 12.1 g/dL (11.2-15.5); MEAN CORPUSCULAR HEMOGLOBIN 31.3 pg (31.6-35.5); MEAN CORPUSCULAR HGB CONC 34.3 g/dL (31.6-35.5); MEAN CORPUSCULAR VOLUME 91.2 fL (81.4-99.0); PLATELET COUNT,PLT 32 K/uL (130-375); RED BLOOD CELL COUNT 3.87 M/uL (3.77-5.24)
[2023-04-17] MEDS: Melatonin 3 MG Tab PO PRN (05:26)
[2023-04-17 05:56] LABS: WHITE BLOOD CELL COUNT,WBC 0.9 K/uL (3.2-11.0)
[2023-04-17] MEDS: Albuterol 0.083% 2.5 MG/3 ML Neb Soln NEB PRN (05:57)
[2023-04-17 06:27] LABS: BAND ABSOLUTE MAN 0.02 K/uL; BAND PERCENT MAN 2 % (5-11); LYMPHOCYTES ABSOLUTE MAN 0.65 K/uL (0.8-3.3); LYMPHOCYTES PERCENT MAN 72 % (24-44); MONOCYTES ABSOLUTE MAN 0.09 K/uL (0.20-0.90); MONOCYTES PERCENT MAN 10 % (2-6); NEUTROPHILS ABSOLUTE MAN 0.14 K/uL (1.0-7.6); SEG NEUTROPHILS PERCENT MAN 16 % (36-66)
[2023-04-17 06:28] LABS: ATYPICAL LYMPHOCYTES RARE
[2023-04-17] MEDS: Iopamidol 755 Mg/ML 100 ML Bottle IV SCH (12:50)
[2023-04-17] MEDS: Sodium Chloride 0.9% 100 ML IV SCH (12:51)
[2023-04-17] MEDS: Polyethylene Glycol 3350 Powder 17 GM Packet PO PRN (14:23)
[2023-04-17] MEDS: Bisacodyl 5 MG Tab PO ONE (18:30)
[2023-04-17] MEDS: Sodium Chloride 0.9% 10 ML Syringe FLUSH ONE (21:54)
[2023-04-17] MEDS: LORazepam 1 MG Tab PO SCH (22:00)
[2023-04-18 06:17] LABS: HEMATOCRIT 31.8 % (34.3-46.0); HEMOGLOBIN 10.7 g/dL (11.2-15.5); MEAN CORPUSCULAR HEMOGLOBIN 31.1 pg (31.6-35.5); MEAN CORPUSCULAR HGB CONC 33.6 g/dL (31.6-35.5); MEAN CORPUSCULAR VOLUME 92.4 fL (81.4-99.0); RED BLOOD CELL COUNT 3.44 M/uL (3.77-5.24); WHITE BLOOD CELL COUNT,WBC 1.5 K/uL (3.2-11.0)
[2023-04-18 06:37] LABS: A/G RATIO 0.6 (1.2-2.2); ALANINE AMINOTRANSFERASE,ALT 47 U/L (12-78); ALBUMIN 2.1 g/dL (3.4-5.0); ALKALINE PHOSPHATASE 51 U/L (46-116); ASPARTATE AMNIOTRANSFERASE,AST 30 U/L (15-37); BILIRUBIN TOTAL 0.6 mg/dL (0.2-1.0); BLOOD UREA NITROGEN,BUN 13 mg/dL (7-18); C-REACTIVE PROTEIN 8.19 mg/dL (<0.50); CARBON DIOXIDE,CO2 32 mmol/L (21-32); CHLORIDE,CL 95 mmol/L (100-108); CREATININE 0.6 mg/dL (0.6-1.0); EST CRCL DRUG DOSING (CG) 64.03 mL/min; ESTIMATED GFR 101 mL/min (>60); GLUCOSE RANDOM 80 mg/dL (74-106); POTASSIUM,K 3.2 mmol/L (3.6-5.2); PROTEIN TOTAL,TP 5.8 g/dL (6.4-8.2); SODIUM,NA 132 mmol/L (140-148)
[2023-04-18 06:38] LABS: ANION GAP 8.2 mmol/L (5.0-14.0)
[2023-04-18 06:39] LABS: PLATELET COUNT,PLT 20 K/uL (130-375)
[2023-04-18 06:51] LABS: ATYPICAL LYMPHOCYTES FEW; BAND ABSOLUTE MAN 0.05 K/uL; BAND PERCENT MAN 3 % (5-11); LYMPHOCYTES ABSOLUTE MAN 0.78 K/uL (0.8-3.3); LYMPHOCYTES PERCENT MAN 52 % (24-44); METAMYELOCYTE ABSOLUTE MAN 0.05 K/uL; METAMYELOCYTE PERCENT MAN 3 %; MONOCYTES ABSOLUTE MAN 0.18 K/uL (0.20-0.90); MONOCYTES PERCENT MAN 12 % (2-6); NEUTROPHILS ABSOLUTE MAN 0.42 K/uL (1.0-7.6); PROMYELOCYTE ABSOLUTE MAN 0.03 K/uL; PROMYELOCYTE PERCENT MAN 2 %; SEG NEUTROPHILS PERCENT MAN 28 % (36-66)
[2023-04-18] MEDS: predniSONE 20 MG, predniSONE 10 MG PO SCH (07:59)
[2023-04-18] MEDS ORDERED: predniSONE 20 MG Tab PO SCH (08:00)
[2023-04-18] MEDS: Sennosides/Docusate Sodium 50-8.6 MG Tab PO PRN (10:48)
[2023-04-19 05:00] LABS: HEMATOCRIT 30.8 % (34.3-46.0); HEMOGLOBIN 10.2 g/dL (11.2-15.5); MEAN CORPUSCULAR HEMOGLOBIN 30.7 pg (31.6-35.5); MEAN CORPUSCULAR HGB CONC 33.1 g/dL (31.6-35.5); MEAN CORPUSCULAR VOLUME 92.8 fL (81.4-99.0); RED BLOOD CELL COUNT 3.32 M/uL (3.77-5.24); WHITE BLOOD CELL COUNT,WBC 2.1 K/uL (3.2-11.0)
[2023-04-19 05:17] LABS: CALCIUM 8.2 mg/dL (8.5-10.1); CREATININE 0.7 mg/dL (0.6-1.0); EST CRCL DRUG DOSING (CG) 54.89 mL/min; POTASSIUM,K 3.5 mmol/L (3.6-5.2)
[2023-04-19 05:24] LABS: PLATELET COUNT,PLT 21 K/uL (130-375)
[2023-04-19 05:27] LABS: ATYPICAL LYMPHOCYTES FEW; BAND ABSOLUTE MAN 0.13 K/uL; BAND PERCENT MAN 6 % (5-11); LYMPHOCYTES ABSOLUTE MAN 1.09 K/uL (0.8-3.3); LYMPHOCYTES PERCENT MAN 52 % (24-44); METAMYELOCYTE ABSOLUTE MAN 0.04 K/uL; METAMYELOCYTE PERCENT MAN 2 %; MONOCYTES ABSOLUTE MAN 0.08 K/uL (0.20-0.90); MONOCYTES PERCENT MAN 4 % (2-6); NEUTROPHILS ABSOLUTE MAN 0.76 K/uL (1.0-7.6); SEG NEUTROPHILS PERCENT MAN 36 % (36-66)
[2023-04-19 05:31] LABS: ANION GAP 5.5 mmol/L (5.0-14.0)
[2023-04-19] MEDS: predniSONE 20 MG Tab PO SCH (07:01)
[2023-04-19] MEDS: Potassium Chloride 20 MEQ Tab.ER PO ONE (08:58)
[2023-04-19] MEDS: LORazepam 0.5 MG Tab PO PRN (09:50)
[2023-04-19] MEDS: Calcium Carbonate 500 MG Tab.Chew PO PRN (09:50)
[2023-04-20] MEDS: tiZANidine 2 MG Tab PO PRN (01:25)
[2023-04-20 04:47] LABS: HEMATOCRIT 31.3 % (34.3-46.0); HEMOGLOBIN 10.6 g/dL (11.2-15.5); MEAN CORPUSCULAR HEMOGLOBIN 31.2 pg (31.6-35.5); MEAN CORPUSCULAR HGB CONC 33.9 g/dL (31.6-35.5); MEAN CORPUSCULAR VOLUME 92.1 fL (81.4-99.0); WHITE BLOOD CELL COUNT,WBC 3.6 K/uL (3.2-11.0)
[2023-04-20 04:59] LABS: CALCIUM 7.8 mg/dL (8.5-10.1); CREATININE 0.6 mg/dL (0.6-1.0); EST CRCL DRUG DOSING (CG) 64.03 mL/min; POTASSIUM,K 3.6 mmol/L (3.6-5.2)
[2023-04-20 05:15] LABS: PLATELET COUNT,PLT 19 K/uL (130-375)
[2023-04-20 05:17] LABS: ANION GAP 9.6 mmol/L (5.0-14.0); ATYPICAL LYMPHOCYTES RARE; BAND ABSOLUTE MAN 0.14 K/uL; BAND PERCENT MAN 4 % (5-11); LYMPHOCYTES PERCENT MAN 36 % (24-44); MONOCYTES ABSOLUTE MAN 0.14 K/uL (0.20-0.90); MONOCYTES PERCENT MAN 4 % (2-6); NEUTROPHILS ABSOLUTE MAN 2.02 K/uL (1.0-7.6); SEG NEUTROPHILS PERCENT MAN 56 % (36-66)
[2023-04-20] MEDS: guaiFENesin/Dextromethorphan 100-10 MG/5 ML Soln 10 ML Cup PO PRN (10:12)
[2023-04-21 04:43] LABS: HEMATOCRIT 31.1 % (34.3-46.0); HEMOGLOBIN 10.7 g/dL (11.2-15.5); MEAN CORPUSCULAR HEMOGLOBIN 31.7 pg (31.6-35.5); MEAN CORPUSCULAR HGB CONC 34.4 g/dL (31.6-35.5); PLATELET COUNT,PLT 35 K/uL (130-375); RED BLOOD CELL COUNT 3.38 M/uL (3.77-5.24); WHITE BLOOD CELL COUNT,WBC 5.6 K/uL (3.2-11.0)
[2023-04-21 05:28] LABS: BAND ABSOLUTE MAN 0.34 K/uL; BAND PERCENT MAN 6 % (5-11); LYMPHOCYTES ABSOLUTE MAN 1.23 K/uL (0.8-3.3); LYMPHOCYTES PERCENT MAN 22 % (24-44); MONOCYTES ABSOLUTE MAN 0.34 K/uL (0.20-0.90); MONOCYTES PERCENT MAN 6 % (2-6); SEG NEUTROPHILS PERCENT MAN 66 % (36-66)
[2023-04-21] MEDS: predniSONE 5 MG Tab PO SCH (08:41)
[2023-04-21] MEDS: traZODone 50 MG Tab PO SCH (20:10)
[2023-04-22] MEDS: Levofloxacin 250 MG Tab PO SCH (12:24)
== END 2023-04-22 13:00 | disposition home or self-care (01) | DRG 871 ==
LOC: JP.ED 14:29 → JP.ICU 17:00
PROVIDERS: ADMIT Internal Medicine; ATTEND Hospitalist
DX: A41.9 Sepsis, unspecified organism (principal); J18.9 Pneumonia, unspecified organism; J96.01 Acute respiratory failure with hypoxia; J44.1 Chronic obstructive pulmonary disease with (acute) exacerbation; J44.0 Chronic obstructive pulmonary disease with (acute) lower respiratory infection; N18.4 Chronic kidney disease, stage 4 (severe); C34.32 Malignant neoplasm of lower lobe, left bronchus or lung; I12.9 Hypertensive chronic kidney disease with stage 1 through stage 4 chronic kidney disease, or unspecified chronic kidney disease; E78.00 Pure hypercholesterolemia, unspecified; R65.20 Severe sepsis without septic shock; F17.210 Nicotine dependence, cigarettes, uncomplicated; D70.9 Neutropenia, unspecified; D69.6 Thrombocytopenia, unspecified; E87.6 Hypokalemia; Z86.16 Personal history of COVID-19; Z79.82 Long term (current) use of aspirin; Z79.899 Other long term (current) drug therapy; Z90.710 Acquired absence of both cervix and uterus; Z90.49 Acquired absence of other specified parts of digestive tract; Z90.721 Acquired absence of ovaries, unilateral
CPT/HCPCS: 0241U; 36415; 71045; 71045-26; 71275; 71275-26; 80048; 80053; 81001; 83605; 83735; 84145; 85025; 86140; 87040; 93005; 93010; 94640; 96365; 96368; 96375; 97116-GP; 97161-GP; 99222; 99232; 99238; 99285; 99285-25; A9270-GY; C9113; J0456; J0692; J1447; J1956; J2270; J2405; J2930; J3475; J3480; J3490; J7030; J7050; J7512; J7620; Q0162; Q9967

== ENCOUNTER 2023-04-26 12:54 | Emergency (ER) | payer OTHER | END 2023-04-26 13:55 | disposition home or self-care (01) | LOC: JP.ED 12:54 | DX: Z76.0 Encounter for issue of repeat prescription (principal); J44.9 Chronic obstructive pulmonary disease, unspecified; I10 Essential (primary) hypertension; Z86.16 Personal history of COVID-19; Z90.49 Acquired absence of other specified parts of digestive tract; Z90.710 Acquired absence of both cervix and uterus; Z79.82 Long term (current) use of aspirin; Z79.899 Other long term (current) drug therapy | CPT/HCPCS: 99284 ==

== ENCOUNTER 2024-09-18 13:51 | Emergency (ER) | payer MEDICAID ==
[2024-09-18] MEDS ORDERED: Sodium Chloride 0.9% 10 ML Syringe FLUSH PRN (14:09)
[2024-09-18 14:45] LABS: BASOPHILS ABSOLUTE AUTO 0.08 K/uL (0.00-0.10); BASOPHILS PERCENT AUTO 0.5 % (0.1-1.3); EOSINOPHILS PERCENT AUTO 0.0 % (0.0-5.4); IMMATURE GRAN ABSOLUTE AUTO 0.08 K/uL (0.00-0.23); IMMATURE GRAN PERCENT AUTO 0.5 % (0.0-0.7); LYMPHOCYTES ABSOLUTE AUTO 1.56 K/uL (0.8-3.3); LYMPHOCYTES PERCENT AUTO 10.4 % (11.4-47.7); MONOCYTES ABSOLUTE AUTO 0.89 K/uL (0.20-0.90); MONOCYTES PERCENT AUTO 5.9 % (3.3-12.6); NEUTROPHILS ABSOLUTE AUTO 12.44 K/uL (1.0-7.6); NEUTROPHILS PERCENT AUTO 82.7 % (40.0-78.1); PLATELET COUNT,PLT 306 K/uL (130-375); RED BLOOD CELL COUNT 4.06 M/uL (3.77-5.24); WHITE BLOOD CELL COUNT,WBC 15.1 K/uL (3.2-11.0)
[2024-09-18 14:51] LABS: EOSINOPHILS ABSOLUTE AUTO 0.00 K/uL (0.00-0.40)
[2024-09-18 14:57] LABS: APPEARANCE,URINE CLEAR (CLEAR); GLUCOSE,URINE NEGATIVE (NEGATIVE); OCCULT BLOOD,URINE MODERATE (NEGATIVE)
[2024-09-18 15:04] LABS: AMPHETAMINES SCREEN, URINE NEGATIVE (NEGATIVE); METHADONE SCREEN, URINE NEGATIVE (NEGATIVE); METHAMPHETAMINES SCREEN, URINE NEGATIVE (NEGATIVE); OXYCODONE SCREEN,URINE NEGATIVE (NEGATIVE); PROPOXYPHENE SCREEN,URINE NEGATIVE (NEGATIVE); THC SCREEN,URINE 50 NG/ML NEGATIVE (NEGATIVE)
[2024-09-18 15:09] LABS: LACTIC ACID 3.1 mmol/L (0.4-2.0)
[2024-09-18 15:12] LABS: EPITHELIAL CELLS,URINE RARE
[2024-09-18 15:16] LABS: A/G RATIO 0.7 (1.2-2.2); ALANINE AMINOTRANSFERASE,ALT 14 U/L (12-78); ASPARTATE AMNIOTRANSFERASE,AST 20 U/L (15-37); BILIRUBIN TOTAL 0.7 mg/dL (0.2-1.0); BLOOD UREA NITROGEN,BUN 15 mg/dL (7-18); CARBON DIOXIDE,CO2 26 mmol/L (21-32); CHLORIDE,CL 93 mmol/L (100-108); CREATININE 1.1 mg/dL (0.6-1.0); EST CRCL DRUG DOSING (CG) 35.15 mL/min; ESTIMATED GFR 56 mL/min (>60); GLUCOSE RANDOM 140 mg/dL (74-106); POTASSIUM,K 4.4 mmol/L (3.6-5.2); PROTEIN TOTAL,TP 8.9 g/dL (6.4-8.2); SODIUM,NA 132 mmol/L (140-148)
[2024-09-18] MEDS: Acetaminophen 1,000 MG in Premix Bag 1 BAG IV ONE (16:08)
[2024-09-22 19:24] LABS: ANAPLASMA PHAGOCYTOPHILUM PCR Not Detected; BABESIA MICROTI BY PCR Not Detected; EHRLICHIA CHAFFEENSIS BY PCR Not Detected; EHRLICHIA EWINGII/CANIS BY PCR Not Detected; EHRLICHIA MURIS-LIKE BY PCR Not Detected
== END 2024-09-18 18:13 ==
LOC: JP.ED 13:51
DX: A41.9 Sepsis, unspecified organism (principal); I10 Essential (primary) hypertension; E78.00 Pure hypercholesterolemia, unspecified; Z79.899 Other long term (current) drug therapy; Z86.16 Personal history of COVID-19; Z90.49 Acquired absence of other specified parts of digestive tract; Z90.710 Acquired absence of both cervix and uterus
CPT/HCPCS: 36415; 71045; 80053; 80305; 81001; 83605; 85025; 86140; 86618; 87040; 87468; 87469; 87484; 87798; 96365; 96375; 99285; J0131; J0696; J7030

== ENCOUNTER 2024-10-25 07:35 | Emergency (ER) | payer MEDICAID ==
[2024-10-25 08:12] LABS: BASOPHILS ABSOLUTE AUTO 0.03 K/uL (0.00-0.10); BASOPHILS PERCENT AUTO 0.2 % (0.1-1.3); EOSINOPHILS PERCENT AUTO 0.1 % (0.0-5.4); IMMATURE GRAN ABSOLUTE AUTO 0.16 K/uL (0.00-0.23); IMMATURE GRAN PERCENT AUTO 0.8 % (0.0-0.7); LYMPHOCYTES ABSOLUTE AUTO 1.20 K/uL (0.8-3.3); LYMPHOCYTES PERCENT AUTO 6.1 % (11.4-47.7); MONOCYTES ABSOLUTE AUTO 1.17 K/uL (0.20-0.90); MONOCYTES PERCENT AUTO 6.0 % (3.3-12.6); NEUTROPHILS ABSOLUTE AUTO 16.95 K/uL (1.0-7.6); NEUTROPHILS PERCENT AUTO 86.8 % (40.0-78.1); PLATELET COUNT,PLT 370 K/uL (130-375); RED BLOOD CELL COUNT 3.75 M/uL (3.77-5.24); WHITE BLOOD CELL COUNT,WBC 19.5 K/uL (3.2-11.0)
[2024-10-25 08:13] LABS: APPEARANCE,URINE SLIGHTLY CLOUDY (CLEAR); GLUCOSE,URINE 100 mg/dL (NEGATIVE); OCCULT BLOOD,URINE SMALL (NEGATIVE)
[2024-10-25 08:15] LABS: SQUAMOUS EPITHELIAL CELLS,UR MODERATE /HPF
[2024-10-25 08:17] LABS: EOSINOPHILS ABSOLUTE AUTO 0.01 K/uL (0.00-0.40)
[2024-10-25 08:27] LABS: BASE EXCESS ARTERIAL -0.3 mm/L; BICARBONATE,ARTERIAL 26.0 mmol/L (22.0-26.0); O2 SATURATION ARTERIAL 98.5 % (95.0-98.0); OXYHEMOGLOBIN 96.7 %; PCO2 ARTERIAL 52.9 mmHg (35.0-42.0); PO2 ARTERIAL 121.0 mmHg (75.0-100.0); TOTAL HEMOGLOBIN 11.1 g/dL (12.0-16.0)
[2024-10-25 08:35] LABS: A/G RATIO 0.6 (1.2-2.2); ALANINE AMINOTRANSFERASE,ALT 17 U/L (12-78); ASPARTATE AMNIOTRANSFERASE,AST 29 U/L (15-37); BILIRUBIN TOTAL 0.3 mg/dL (0.2-1.0); BLOOD UREA NITROGEN,BUN 12 mg/dL (7-18); CARBON DIOXIDE,CO2 30 mmol/L (21-32); CHLORIDE,CL 98 mmol/L (100-108); CREATININE 0.8 mg/dL (0.6-1.0); EST CRCL DRUG DOSING (CG) 58.50 mL/min; ESTIMATED GFR 82 mL/min (>60); GLUCOSE RANDOM 185 mg/dL (74-106); PROTEIN TOTAL,TP 7.7 g/dL (6.4-8.2); SODIUM,NA 138 mmol/L (140-148)
[2024-10-25 08:37] LABS: POTASSIUM,K 2.6 mmol/L (3.6-5.2)
[2024-10-25 08:38] LABS: LACTIC ACID 2.5 mmol/L (0.4-2.0)
[2024-10-25] MEDS: Potassium Chloride 20 MEQ Tab.ER PO ONE (08:50)
[2024-10-25] MEDS: Dexamethasone 4 MG/ML SDV IVPUSH ONE (11:05)
[2024-10-25] MEDS: levETIRAcetam 500 MG/5 ML SDV IVPUSH ONE ×2 (11:05→12:06)
[2024-10-25] MEDS: Sodium Chloride 0.9% 10 ML Syringe FLUSH ONE (11:50)
[2024-10-25] MEDS: Iopamidol 755 Mg/ML 100 ML Bottle IV ONE (11:50)
== END 2024-10-25 13:32 ==
LOC: JP.ED 07:35
DX: A41.9 Sepsis, unspecified organism (principal); R65.20 Severe sepsis without septic shock; J96.01 Acute respiratory failure with hypoxia; E87.6 Hypokalemia; R79.89 Other specified abnormal findings of blood chemistry; J98.4 Other disorders of lung; I10 Essential (primary) hypertension; J44.9 Chronic obstructive pulmonary disease, unspecified; Z86.16 Personal history of COVID-19; Z90.49 Acquired absence of other specified parts of digestive tract; Z90.710 Acquired absence of both cervix and uterus; Z79.51 Long term (current) use of inhaled steroids; Z79.899 Other long term (current) drug therapy; Z85.118 Personal history of other malignant neoplasm of bronchus and lung
CPT/HCPCS: 36415; 36600; 70450; 71045; 71275; 80053; 81001; 82803; 83605; 83735; 84484; 85025; 85379; 87040; 87086; 87186; 93005; 93010; 96361; 96365; 96375; 96376; 99285; A9270; J0696; J1100; J1953; J3480; J7030; Q9967